=== PATIENT | female | born 2000 | race Caucasian/White ===

== ENCOUNTER 2022-12-21 19:49 | Outpatient (OUT) | payer OTHER, SELFPAY ==
[2022-12-26 16:08] LABS: Age Gdln ACOG Testing Note (.); IGP, rfx Aptima HPV ASCU Note (.)
== END 2022-12-21 19:50 | disposition home or self-care (01) ==
PROVIDERS: PCP Family Medicine; Visit Provider Obstetrics & Gynecology
DX: Z12.4 Encounter for screening for malignant neoplasm of cervix (principal); Z11.51 Encounter for screening for human papillomavirus (HPV)
CPT/HCPCS: G0145

== ENCOUNTER 2023-04-21 16:29 | Outpatient (OUT) | payer OTHER, SELFPAY ==
[2023-04-21 16:48] LABS: Basophils Absolute Auto 0.1 10^3/uL (0.0-0.1); Basophils Percent Auto 0.8 % (0.2-2.0); Eosinophils Percent Auto 0.7 % (0.9-7.0); Hematocrit 41.6 % (36.0-48.0); Hemoglobin 14.7 g/dL (12.0-16.0); Immature Granulocytes Abs Auto 0.01 10^3/uL (0.00-0.03); Immature Granulocytes Pct Auto 0.2 % (0.0-0.5); Lymphocytes Absolute Auto 2.1 10^3/uL (1.2-3.8); Lymphocytes Percent Auto 35.3 % (20.5-60.0); Mean Corpuscular HGB Conc 35.3 g/dL (29.9-35.2); Mean Corpuscular Hemoglobin 30.8 pg (26.7-34.0); Mean Corpuscular Volume 87.2 fL (81.0-99.0); Mean Platelet Volume 9.9 fL (9.5-13.5); Monocytes Absolute Auto 0.4 10^3/uL (0.3-0.8); Monocytes Percent Auto 6.3 % (1.7-12.0); Neutrophils Absolute Auto 3.5 10^3/uL (1.4-6.5); Neutrophils Percent Auto 56.7 % (43.0-75.0); Platelet Count 278 10^3/uL (150-450); Red Blood Count 4.77 10^6/uL (4.20-5.40); Red Cell Distribution Width 11.1 % (11.0-15.0); White Blood Count 6.1 10^3/uL (4.0-11.0)
[2023-04-21 17:12] LABS: Anion Gap 11.4; BUN Creatinine Ratio 15.3; Calcium 9.6 mg/dL (8.5-10.1); Carbon Dioxide 29.5 mmol/L (21.0-32.0); Chloride 102 mmol/L (98-107); Estimated GFR (African America >60 (>=60); Estimated GFR (Non-African Ame >60 (>=60); Glucose 114 mg/dL (74-106); Potassium 3.9 mmol/L (3.5-5.1); Sodium 139 mmol/L (136-145); Thyroid Stimulating Hormone 0.583 uIU/mL (0.358-3.740)
== END 2023-04-21 16:30 | disposition home or self-care (01) ==
LOC: LAB 16:30
PROVIDERS: PCP Family Medicine; Visit Provider Family Medicine
DX: R63.4 Abnormal weight loss (principal); R10.32 Left lower quadrant pain
CPT/HCPCS: 36415; 80048; 84443; 85025

== ENCOUNTER 2023-05-04 09:02 | Outpatient (OUT) | payer OTHER, SELFPAY ==
--- NOTE | 2023-05-04 09:11 | US_ITS ---
The [address] [address] Patient Name: ROXANNE GONZALES MRN: [id number] date: 2000 Sex: F Assigned Patient Location: [place] Current Patient Location: [place] Accession/Order Number: [id number] Exam Date: 05/04/2023 09:15 Report Date: 05/04/2023 11:06 At the request of: DEMETRIA ALARCON Procedure: US abdomen limited EXAM: US abdomen limited HISTORY: Left Lower Quadrant Pain R10.32 COMPARISON: None. TECHNIQUE: Transverse and longitudinal images of the left lower quadrant FINDINGS: There is no mass, cyst, nor architectural distortion. The left ovary is visualized measuring 24 x 26 x 21 mm and is sonographically unremarkable US/US abdomen limited IMPRESSION: No sonographic abnormality identified the left lower quadrant. CT could investigate persistent symptoms Electronically authenticated by: GONZÁLEZ REAVES Date: 05/04/2023 11:06
== END 2023-05-04 09:03 | disposition home or self-care (01) ==
LOC: US 09:02
PROVIDERS: PCP Family Medicine; Visit Provider Family Medicine
DX: R10.32 Left lower quadrant pain (principal)
CPT/HCPCS: 76705

== ENCOUNTER 2024-01-10 19:22 | Outpatient (REF) | payer OTHER, SELFPAY ==
--- OUTSIDE RECORDS SUMMARY | 2024-01-10 19:27 | XMS_ITS ---
Patient Summarization (C-CDA 2.1 CCD) Created on: January 10, 2024 Cornell Thomas : 2000 Sex: Female Author Organization Sample organization Care Team Providers Care [employer] Name Role Phone SKYE REARDON Unavailable Unavailable SKYE REARDON Unavailable Unavailable MD Raquel Alarcon Primary Care Provider DO Piter Bowers Emergency Provider Raquel Alarcon Primary Care Unavailable Piter Bowers Attending Unavailable Piter Bowers Admitting Unavailable ADDY ., DR VOGT Attending Unavailable ADDY ., DR VOGT Admitting Unavailable ADDY ., DR VOGT Consulting Unavailable AGNES, DR RAQUEL Tobin Primary Care Unavailable ADDY ., DR VOGT Admitting Unavailable ADDY ., DR VOGT Attending Unavailable ADDY ., DR VOGT Consulting Unavailable ADDY ., DR VOGT Consulting Unavailable ADDY ., DR VOGT Attending Unavailable ADDY ., DR VOGT Admitting Unavailable ADDY ., DR VOGT Attending Unavailable ALARCON, DR RAQUEL Tobin Primary Care Unavailable ADDY ., DR VOGT Admitting Unavailable Bri Edwards Consulting Unavailable ADDY ., DR VOGT Consulting Unavailable ADDY ., DR VOGT Attending Unavailable ADDY ., DR VOGT Admitting Unavailable ALARCON, DR RAQUEL Tobin Primary Care Unavailable ADDY ., DR VOGT Consulting Unavailable ALARCON, DR RAQUEL Tobin Primary Care Unavailable DIAB ., SALAZAR Admitting Unavailable DIAB ., SALAZAR Attending Unavailable HAY ., DR DURÁN Consulting Unavailable KARASIK ., DR HARPER Admitting Unavailjono e KARALBERTK ., DR HARPER Consulting Unavailjono e AGNES, DR RAQUEL Tobin Primary Care Unavailable KARASIK ., DR HARPER Attending Unavailabl e AYDEE, MURTAZA Consulting Unavailable MURTAZA BAJWA Attending Unavailable AGNES, DR RAQUEL Tobin Primary Care Unavailable MURTAZA BAJWA Admitting Unavailable ADDY ., DR VOGT Admitting Unavailable KARASIK ., DR HARPER Consulting Unavailabl e AGNES, DR RAQUEL Tobin Primary Care Unavailable ADDY ., DR VOGT Attending Unavailable ADDY ., DR VOGT Consulting Unavailable ADDY ., DR VOGT Procedure Practitioner Unavail able GHAZAL MCLEAN Consulting Unavailable VALERY RICO Consulting Unavailable ADDY ., DR VOGT Consulting Unavailable ADDY ., DR VOGT Admitting Unavailable ADDY ., DR VOGT Attending Unavailable MARCIN, DR JENNIFER Atkins Consulting Unavailable ADDY ., DR VOGT Consulting Unavailable ADDY ., DR VOGT Attending Unavailable ADDY ., DR VOGT Admitting Unavailable ADDY ., DR VOGT Attending Unavailable ADDY ., DR VOGT Admitting Unavailable ADDY ., DR VOGT Consulting Unavailable Raquel Alarcon Unavailable Allergies Allergy Classification Reported Allergen(s) Allergy Type Date of Onset Reaction(s) Facility (1 source) Penicillin Drug Allergy 05-31-2022 [facility] Encounters Encounter Date Encounter Type Care Provider Facility Start: 05-06-2023 End: 05-06-2023 ambulatory Raquel Alarcon Other [facility] Other Start: 05-06-2023 Telephone encounter Raquel Alarcon [facility] Start: 04-25-2023 End: 04-25-2023 ambulatory Raquel Alarcon Other [facility] Other Start: 04-25-2023 Telephone encounter Raquel Alarcon [facility] Start: 04-21-2023 End: 04-21-2023 ambulatory Raquel Alarcon Other [facility] Other Start: 04-21-2023 Office outpatient ne w 30 minutes Raquel Alarcon [facility] Start: 07-12-2022 End: 07-12-2022 Emergency department patient visit Raquel Alarcon Facility:[facility] Start: 07-11-2022 End: 07-12-2022 Emergency department patient visit MD Raquel Alarcon Work Phone: [facility] Work Phone: Start: 07-10-2022 End: 07-10-[address] RAQUEL ALARCON Facility:[facility] Start: 05-30-2022 End: 06-02-2022 Evaluation and management of inpatient DR SIN STEPHEN . Facility:[facility] Start: 05-22-2022 End: 05-22-2022 ambulatory MURTAZAJORDYN BAJWA Facility:[facility] Start: 05-10-2022 End: 05-10-[address] SIN STEPHEN . Facility:[facility] Start: 03-26-2022 End: 03-27-[address] SIN STEPHEN . Facility:[facility] Start: 02-23-2022 End: 02-24-[address] RAQUEL ALARCON Facility:[facility] Start: 02-01-2022 End: 02-01-[address] MEREDITH LERMA . Facility:[facility] Start: 01-19-2022 End: 01-20-[address] SIN STEPHEN . Facility:[facility] Start: 12-14-2021 End: 12-14-[address] SIN STEPHEN . Facility:[facility] Start: 11-18-2021 End: 11-19-[address] SIN STEPHEN . Facility:[facility] Start: 10-23-2021 End: 10-24-[address] SIN STEPHEN . Facility:[facility] Start: 12-15-2017 Patient encounter [facility] Immunizations Immunization Date Immunization Notes Care Provider Fa cility 06-09-2021 COVID-19 Vaccine Moderna - Documentation Purposes Only Raquel Alarcon Other [facility] Other Medications Current Medications Medication Drug Class(es) Dates Sig (Normalized) Sig (Original) sulfamethoxazole 800 mg / trimethoprim 160 mg oral tablet (1 source) Dihydrofolate Reductase Inhibitor Antibacterial, Sulfonamide Antimicrobial Start: 07-12-2022 take 1 tablet by mouth twice daily Sulfamethoxazol e-Trimethoprim (Bactrim Ds) 800-160 mg tablet Active 1 TAB PO Twice daily July 12, 2022 12:00am Ventolin HFA 108 (90 Base)MCG/ACT (3 sources) Start: 02-10-2021 Ventolin HFA 108 (90 Base)MCG/ACT Ventolin HFA 108 (90 Base)MCG/ACT, 2 puffs Puff every four hours, as needed # 1, 02/10/2021, Ref. x3. Active Inhalation every four hours, as needed for 0 Feb, Active Payers Date Payer Category Payer Self-pay 2000 Unknown [id number] 2.16.84 [id number] 2000 Unknown [id number] 2.16.84 [id number] 2000 Unknown [id number] 2.16.84 [id number] 2000 Unknown [id number] 2.16.84 [id number] 2000 Unknown [id number] 2.16.84 [id number] 2000 Unknown [id number] 2.16.84 [id number] 2000 Unknown [id number] 2.16.84 [id number] 2000 Unknown [id number] 2.16.84 [id number] 2000 Unknown [id number] 2.16.84 [id number] 2000 Unknown [id number] 2.16.84 [id number] 2000 Unknown [id number] 2.16.84 [id number] 1959 Medicaid [id number] 1959 Self-pay [id number] 1959 Unknown [id number] 1a [id number] 1959 Unknown [id number] Unknown [id number] 2.16.8 [id number] Unknown [id number] 2.16.84 [id number] Plan of Treatment Date Care Activity Detail Author Start: 07-12-2022 Superficial Wound Culture Superficial Wound Culture [facility] Bacteria identified in Unspecified specimen by Aerobe culture [facility] Patient Education Wound Dehiscence [facility] Work Phone: Patient referral [facility] Work Phone: Problems Active Problems Problem Classification Problem Date Documented Da te Episodic/Chronic Abdominal pain (1 source) Left lower quadrant pain Episodic Asthma (4 sources) Unspecified asthma, uncomplicated; Translations: [Exercise-induced asthma] Onset: 06-10-2022 Chronic Complications of surgical procedures or medical care (1 source) Wound dehiscence; Translations: [Disruption of wound, unspecified, initial encounter] 07-12-2022 Episodic Early or threatened labor (4 sources) False labor at or after 37 completed weeks of gestation; Translations: [FALSE LABOR AT/AFTR 37 CMPL WK GEST] Onset: 05-22-2022 Episodic Malposition; malpresentation (1 source) Maternal care for breech presentation, not applicable or unspecified; Translations: [MATERNAL CARE BREECH PRES NA/UNS] Onset: 06-10-2022 Episodic Menstrual disorders (4 sources) Irregular menstruation, unspecified; Translations: [IRREGULAR MENSTRUATION UNSPECIFIED] Onset: 11-18-2021 Chronic Other complications of ; puerperium affecting management of mother (5 sources) Disruption of delivery wound; Translations: [Disruption of delivery wound] Onset: 07-10-2022 Episodic Other complications of ; puerperium affecting management of mother (1 source) Diseases of the respiratory system complicating childbirth; Translations: [DISEASES RESP SYS COMP CHILDBIRTH] Onset: 06-10-2022 Episodic Other complications of (2 sources) Diseases of the respiratory system complicating , third trimester; Translations: [DISEASES RESP SYS COMP PREG 3RD TRI] Onset: 05-30-2022 Episodic Other nutritional; endocrine; and metabolic disorders (1 source) Abnormal weight loss Episodic Other and delivery including normal (7 sources) Single live ; Translations: [Encounter for supervision of normal first , second trimester] Onset: 10-28-2021 Episodic Residual codes; unclassified (1 source) 39 weeks gestation of ; Translations: [39 WEEKS GESTATION OF ] Onset: 06-10-2022 Episodic Residual codes; unclassified (1 source) 38 weeks gestation of ; Translations: [38 WEEKS GESTATION OF ] Onset: 05-26-2022 Episodic Unclassified (1 source) CONTACT W/AND (SUSP) EXPOS COVID-19; Translations: [CONTACT W/AND (SUSP) EXPOS COVID-19] Onset: 06-10-2022 Past or Other Problems Problem Classification Problem Date Documented Date Episodic/Chronic Immunizations and screening for infectious disease (3 sources) Encounter for screening for human papillomavirus (HPV); Translations: [Encounter for screening for infections with a predominantly sexual mode of transmission] Onset: 11-20-2021 Episodic Mycoses (1 source) Candidiasis, unspecified; Translations: [CANDIDIASIS UNSPECIFIED] Onset: 02-02-2022 Episodic Other complications of (4 sources) Maternal care for excessive growth, third trimester, not applicable or unspecified; Translations: [MAT CARE EXCSS FTL GRTH 3RD TRI UNS] Onset: 03-26-2022 Episodic Other complications of (1 source) Other maternal infectious and parasitic diseases complicating , second trimester; Translations: [OT MAT INFECT DZ COMP PREG 2ND TRI] Onset: 02-02-2022 Episodic Other female genital disorders (4 sources) Other specified noninflammatory disorders of vagina; Translations: [OT SPEC NONINFLAMMATORY D/O VAGINA] Onset: 12-16-2021 Episodic Other screening for suspected conditions (not mental disorders or infectious disease) (17 sources) Encounter for screening for Streptococcus B; Translations: [Encounter for screening for diabetes mellitus] Onset: 11-20-2021 Episodic Residual codes; unclassified (1 source) 30 weeks gestation of ; Translations: [30 WEEKS GESTATION OF ] Onset: 03-31-2022 Episodic Residual codes; unclassified (1 source) 22 weeks gestation of ; Translations: [22 WEEKS GESTATION OF ] Onset: 02-02-2022 Episodic Residual codes; unclassified (1 source) 20 weeks gestation of ; Translations: [20 WEEKS GESTATION OF ] Onset: 01-20-2022 Episodic Procedures Date Procedure Procedure Detail Performing Clinician Start: 05-31-2022 Extraction of Produc ts of Conception, Low Cervical, Open Approach DR SIN STEPHEN . Start: 05-31-2022 Drainage of Amniotic Fluid, Therapeutic from Products of Conception, Via Natural or Artificial Opening DR SIN STEPHEN . Start: 05-30-2022 Introduction of Horm one into Female Reproductive, Via Natural or Artificial Opening DR SIN STEPHEN . Results Test Name Value Interpretation Reference Range Facility Superficial Wound Cultureon 07-12-2022 Superficial Wound Culture ORGANISM: Staphylococcus aureus (O:STAAUR) Quantity of Growth Light Growth Aerobic VÍCTOR Charge (PCMIC38) ---- SUSCEPTIBILITY --- ORGANISM: O:STAAUR ANTIBIOTIC INTERPRETATION VÍCTOR Azithromycin R >4 Ceftaroline S <0.5 Ciprofloxacin S <1 Clindamycin R <0.25 Daptomycin S <0.5 Levofloxacin S <1 Linezolid S 2 Oxacillin S 0.5 Penicillin PEDRO >2 Tetracycline S <4 Trimethoprim/Sulfamet hoxazole S <0.5 Vancomycin S 1 S = SUSCEPTIBLE I = INTERMEDIATE R = RESISTANT BLANK = DATA NOT AVAILABLE, OR DRUG NOT ADVISABLE OR TESTED R* = RESISTANCE DUE TO EXTENDED SPECTRUM BETA-LACTAMASES ESBL = EXTENDED SPECTRUM BETA-LACTAMASE TFG = THYMIDINE-DEPENDENT STRAIN PEDRO = BETA-LACTAMASE POSITIVE IB = INDUCIBLE BETA-LACTAMASE. APPEARS IN PLACE OF 'S' WITH SPECIES KNOWN TO POSSESS INDUCIBLE BETA-LACTAMASES. POTENTIALLY THEY MAY BECOME RESISTANT TO ALL B-LACTAM DRUGS. PERFORMED BY: [place] [address] PATHOLOGIST SOFTWARE BUILD ENGINEER DAVID PRETTY M.D. Normal [facility] Comment on above: Performed By: #### C USUP #### [address] CBC AUTO DIFFon 06-01-2022 BASO # 0.0 103/ul Normal 0.0-0.1 [facility] Comment on above: Performed By: #### U HIRO ROBLES #### [facility] [address] [place] [address] Dr. Melba Lorenzo Basophils/100 WBC (Bld) 0.3 % Normal 0.2-2.0 [facility] Comment on above: Performed By: #### U ACSADRIANA UMICRO #### [facility] [address] [place] [address] Dr. Melba Lorenzo EO # 0.0 103/ul Normal 0.0-0.7 [facility] Comment on above: Performed By: #### U ACSADRIANA UMICRO #### [facility] [address] [place] [address] Dr. Melba Lorenzo Eosinophils/100 WBC (Bld) 0.2 % Critically low 0.9-7.0 [facility] Comment on above: Performed By: #### U ACSADRIANA UMICRO #### [facility] [address] [place] [address] Dr. Melba Lorenzo Erythrocyte distribution width (RBC) [Ratio] 12.1 % Normal 11.0-15.0 [facility] Comment on above: Performed By: #### U TRAVIS ICRO #### [facility] [address] [place] [address] Dr. Melba Lorenzo Hematocrit (Bld) [Volume fraction] 28.0 % Critically low 36.0-48.0 [facility] Comment on above: Performed By: #### U TRAVIS UMICRO #### [facility] [address] [place] [address] Dr. Melba Lorenzo Hemoglobin (Bld) [Mass/Vol] 9.8 g/dL Critically low 12.0-16.0 [facility] Comment on above: Performed By: #### U ACSADRIANA UMICRO #### [facility] [address] [place] [address] Dr. Melba Lorenzo IG # 0.07 10e3/ul Critically high 0.00-0.03 [facility] Comment on above: Performed By: #### U ACSADRIANA UMICRO #### [facility] [address] [place] [address] Dr. Melba Lorenzo IG % 0.6 % Critically high 0.0-0.5 [facility] Comment on above: Performed By: #### U TRAVIS ICRO #### [facility] [address] [place] [address] Dr. Melba Lorenzo LYMPH # 2.0 103/ul Normal 1.2-3.8 [facility] Comment on above: Performed By: #### U TRAVIS UMICRO #### [facility] [address] [place] [address] Dr. Melba Lorenzo Lymphocytes/100 WBC (Bld) 16.6 % Critically low 20.5-60.0 [facility] Comment on above: Performed By: #### U TRAVIS ICRO #### [facility] [address] [place] [address] Dr. Melba Lorenzo MANUAL DIFF REQ NO Normal [facility] Comment on above: Performed By: #### U TRAVIS ICRO #### [facility] [address] [place] [address] Dr. Melba Lorenzo MCH (RBC) [Entitic mass] 31.0 pg Normal 26.7-34.0 [facility] Comment on above: Performed By: #### U TRAVIS ICRO #### [facility] [address] [place] [address] Dr. Melba Lorenzo MCHC (RBC) [Mass/Vol] 35.0 g/dL Normal 29.9-35.2 [facility] Comment on above: Performed By: #### U TRAVIS ICRO #### [facility] [address] [place] [address] Dr. Melba Lorenzo MCV (RBC) [Entitic vol] 88.6 fL Normal 81.0-99.0 [facility] Comment on above: Performed By: #### U ACSADRIANA UMICRO #### [facility] [address] [place] [address] Dr. Melba Lorenzo MONO # 1.1 103/ul Critically high 0.3-0.8 [facility] Comment on above: Performed By: #### U ACSADRIANA UMICRO #### [facility] [address] [place] [address] Dr. Melba Lorenzo Monocytes/100 WBC (Bld) 8.8 % Normal 1.7-12.0 [facility] Comment on above: Performed By: #### U ACSADRIANA UMICRO #### [facility] [address] [place] [address] Dr. Melba Lorenzo NEUT # 8.8 103/ul Critically high 1.4-6.5 [facility] Comment on above: Performed By: #### U ACSADRIANA UMICRO #### [facility] [address] [place] [address] Dr. Melba Lorenzo Neutrophils/100 WBC (Bld) 73.5 % Normal 43.0-75.0 [facility] Comment on above: Performed By: #### U ACSADRIANA UMICRO #### [facility] [address] [place] [address] Dr. Melba Lorenzo Platelet mean volume (Bld) [Entitic vol] 9.8 fL Normal 9.5-13.5 [facility] Comment on above: Performed By: #### U TRAVIS ICRO #### [facility] [address] [place] [address] Dr. Melba Lorenzo PLT 194 103/ul Normal 150-450 [facility] Comment on above: Performed By: #### U ACSADRIANA UMICRO #### [facility] [address] [place] [address] Dr. Melba Lorenzo RBC 3.16 106/ul Critically low 4.20-5.40 [facility] Comment on above: Performed By: #### U ACSADRIANA UMICRO #### [facility] [address] [place] [address] Dr. Melba Lorenzo WBC 12.0 103/ul Critically high 4.0-11.0 [facility] Comment on above: Performed By: #### U ACSADRIANA UMICRO #### [facility] [address] [place] [address] Dr. Melba Lorenzo CBC AUTO DIFFon 05-30-2022 BASO # 0.0 103/ul Normal 0.0-0.1 [facility] Comment on above: Performed By: #### U NIRMAL ROBLESICRO #### [facility] [address] [place] [address] Dr. Melba Lorenzo Basophils/100 WBC (Bld) 0.3 % Normal 0.2-2.0 [facility] Comment on above: Performed By: #### U ACSADRIANA UMICRO #### [facility] [address] [place] [address] Dr. Melba Lorenzo EO # 0.0 103/ul Normal 0.0-0.7 [facility] Comment on above: Performed By: #### U TRAVIS ICRO #### [facility] [address] [place] [address] Dr. Melba Lorenzo Eosinophils/100 WBC (Bld) 0.3 % Critically low 0.9-7.0 [facility] Comment on above: Performed By: #### U TRAVIS ICRO #### [facility] [address] [place] [address] Dr. Melba Lorenzo Erythrocyte distribution width (RBC) [Ratio] 11.9 % Normal 11.0-15.0 [facility] Comment on above: Performed By: #### U TRAVIS ICRO #### [facility] [address] [place] [address] Dr. Melba Lorenzo Hematocrit (Bld) [Volume fraction] 38.1 % Normal 36.0-48.0 [facility] Comment on above: Performed By: #### U ACSADRIANA UMICRO #### [facility] [address] [place] [address] Dr. Melba Lorenzo Hemoglobin (Bld) [Mass/Vol] 13.4 g/dL Normal 12.0-16.0 [facility] Comment on above: Performed By: #### U ACSADRIANA UMICRO #### [facility] [address] [place] [address] Dr. Melba Lorenzo IG # 0.05 10e3/ul Critically high 0.00-0.03 [facility] Comment on above: Performed By: #### U ACSADRIANA UMICRO #### [facility] [address] [address] [address] Melba Lorenzo IG % 0.5 % Normal 0.0-0.5 [facility] Comment on above: Performed By: #### U ACSADRIANA UMICRO #### [facility] [address] [place] [address] Dr. Melba Lorenzo LYMPH # 2.0 103/ul Normal 1.2-3.8 [facility] Comment on above: Performed By: #### U ACSADRIANA UMICRO #### [facility] [address] [place] [address] Dr. Melba Lorenzo Lymphocytes/100 WBC (Bld) 20.1 % Critically low 20.5-60.0 [facility] Comment on above: Performed By: #### U TRAVIS UMICRO #### [facility] [address] [place] [address] Dr. Melba Lorenzo MANUAL DIFF REQ NO Normal [facility] Comment on above: Performed By: #### U TRAVIS UMICRO #### [facility] [address] [place] [address] Dr. Melba Lorenzo MCH (RBC) [Entitic mass] 30.7 pg Normal 26.7-34.0 [facility] Comment on above: Performed By: #### U TRAVIS UMICRO #### [facility] [address] [place] [address] Dr. Melba Lorenzo MCHC (RBC) [Mass/Vol] 35.2 g/dL Normal 29.9-35.2 [facility] Comment on above: Performed By: #### U ACSADRIANA UMICRO #### [facility] [address] [place] [address] Dr. Melba Lorenzo MCV (RBC) [Entitic vol] 87.4 fL Normal 81.0-99.0 [facility] Comment on above: Performed By: #### U ACSADRIANA UMICRO #### [facility] [address] [place] [address] Dr. Melba Lorenzo MONO # 0.8 103/ul Normal 0.3-0.8 [facility] Comment on above: Performed By: #### U NIRMAL ROBLESICRO #### [facility] [address] [address] [address] Melba Lorenzo Monocytes/100 WBC (Bld) 7.8 % Normal 1.7-12.0 [facility] Comment on above: Performed By: #### U NIRMAL ROBLESICRO #### [facility] [address] [place] [address] Dr. Melba Lorenzo NEUT # 6.9 103/ul Critically high 1.4-6.5 [facility] Comment on above: Performed By: #### U TRAVIS UMICRO #### [facility] [address] [place] [address] Dr. Melba Lorenzo Neutrophils/100 WBC (Bld) 71.0 % Normal 43.0-75.0 [facility] Comment on above: Performed By: #### Dheeraj ROBLES ICRO #### [facility] [address] [place] [address] Dr. Melba Lorenzo Platelet mean volume (Bld) [Entitic vol] 9.9 fL Normal 9.5-13.5 [facility] Comment on above: Performed By: #### Dheeraj ROBLES ICRO #### [facility] [address] [place] [address] Dr. Melba Lorenzo PLT 269 103/ul Normal 150-450 [facility] Comment on above: Performed By: #### U TRAVIS UMICRO #### [facility] [address] [place] [address] Dr. Melba Lorenzo RBC 4.36 106/ul Normal 4.20-5.40 [facility] Comment on above: Performed By: #### U TRAVIS UMICRO #### [facility] [address] [place] [address] Dr. Melba Lorenzo WBC 9.7 103/ul Normal 4.0-11.0 [facility] Comment on above: Performed By: #### U CELI ROBLESRO #### [facility] [address] [address] [address] Melba Lorenzo Covid-19 PCR ([facility])on 05-07 SARS-CoV-2 (COVID-19) RNA VEENA+probe Ql (Unsp spec) Not detected Normal NOT DETECTED [facility] Comment on above: Result Comment: When diagnostic testing is negative, the possibility of a false negative should be considered in the context of a patient's recent exposures and the presence of clinical signs and symptoms consistent with SARS-CoV-2. This test is not yet approved or cleared by the [place] FDA. When there are no FDA-approved or cleared tests available, and other criteria are met, FDA can make tests available under an emergency access mechanism called an Emergency Use Authorization (EUA). The EUA for this test is supported by the [place] of Health and Human Service's declaration that circumstances exist to justify the emergency use of in vitro diagnostics for the detection and/or diagnosis of the virus that causes COVID-19. This EUA will remain in effect for the duration of the COVID-19 declaration justifying emergency of IVDs, unless it is terminated or revoked by the FDA (after which the test may no longer be used). Performed By: #### U HIRO ROBLES #### [facility] Laboratory [address] [place] [address] Dr. Melba Lorenzo DRUG SCREEN RAPID (URINE)on 05-30-2022 AMP Negative Normal NEGATIVE [facility] Comment on above: Performed By: #### N BOX #### [facility] [address] [address] [address] Melba Lorenzo BAR Negative Normal NEGATIVE [facility] Comment on above: Performed By: #### N BOX #### [facility] [address] [address] [address] Melba Lorenzo BUP Negative Normal NEGATIVE [facility] Comment on above: Performed By: #### N BOX #### [facility] [address] [place] [address] Dr. Melba Lorenzo BZO Negative Normal NEGATIVE [facility] Comment on above: Performed By: #### N BOX #### [facility] [address] [place] [address] Dr. Melba Lorenzo PRANEETH Negative Normal NEGATIVE [facility] Comment on above: Performed By: #### N BOX #### [facility] [address] [place] [address] Dr. Melba Lorenzo CUT-OFFS SEE BELOW Normal [facility] Comment on above: Result Comment: AMP (Amphetamine): 500ng/mL, BAR (Barbituates): 200 ng/mL, BZO (Benzodiazepines): 150 ng/mL, BUP (Buprenorphine): 10 ng/mL, PRANEETH (Cocaine): 150 ng/mL, mAMP (Methamphetamine): 500 ng/mL, MTD (Methadone): 200 ng/mL, OPI (Opiates): 100 ng/mL, OXY (Oxycodone): 100 ng/mL, PCP (Phencyclidine): 25 ng/mL, PPX (Propoxyphene): 300 ng/mL, THC (Cannabinoids): 50 ng/mL, TCA (Trycyclic Antidepressants): 300 ng/mL Performed By: #### N BOX #### [facility] [address] [place] [address] Dr. Melba Lorenzo DRUG CUT HEADER DRUG CLASS TEST SYSTEM CUT-OFF CONCENTRATIONS ARE FOLLOWS: Normal [facility] Comment on above: Performed By: #### N BOX #### [facility] [address] [place] [address] Dr. Melba Lorenzo mAMP Negative Normal NEGATIVE [facility] Comment on above: Performed By: #### N BOX #### [facility] [address] [place] [address] Dr. Melba Lorenzo MTD Negative Normal NEGATIVE [facility] Comment on above: Performed By: #### N BOX #### [facility] [address] [place] [address] Dr. Melba Lorenzo OPI Negative Normal NEGATIVE [facility] Comment on above: Performed By: #### N BOX #### [facility] [address] [place] [address] Dr. Melba Lorenzo OXY Negative Normal NEGATIVE [facility] Comment on above: Performed By: #### N BOX #### [facility] [address] [place], [place] [id number] Dr. Melba Lorenzo PCP Negative Normal NEGATIVE [facility] Comment on above: Performed By: #### N BOX #### [facility] [address] [place] [address] Dr. Melba Lorenzo PPX Negative Normal NEGATIVE [facility] Comment on above: Performed By: #### N BOX #### [facility] [address] [place] [address] Dr. Melba Lorenzo TCA Negative Normal NEGATIVE [facility] Comment on above: Performed By: #### N BOX #### [facility] [address] [place] [address] Dr. Melba Lorenzo THC Negative Normal NEGATIVE [facility] Comment on above: Performed By: #### N BOX #### [facility] [address] [place] [address] Dr. Melba Lorenzo TYPE AND SCREENon 05-30-2022 TYPE AND SCREEN Negative Normal [facility] Comment on above: Performed By: #### U ACSADRIANA ICRO #### [facility] [address] [place] [address] Dr. Melba Lorenzo UA (CLEAN/CATCH) VALVE PIPE IRRIGATOR/MICRO I F IND.on 05-22-2022 Bilirubin Ql (U) Negative Normal NEGATIVE [facility] Comment on above: Performed By: #### U ACSADRIANA UMICRO #### [facility] [address] [place] [address] Dr. Melba Lorenzo Clarity (U) SL CLOUDY Abnormal CLEAR [facility] Comment on above: Performed By: #### U ACSADRIANA ICRO #### [facility] [address] [place] [address] Dr. Melba Lorenzo Color (U) LT. YELLOW Normal YELLOW [facility] Comment on above: Performed By: #### U ACSADRIANA UMICRO #### [facility] [address] [place] [address] Dr. Melba Lorenzo Glucose Ql (U) Negative Normal NEGATIVE [facility] Comment on above: Performed By: #### U ACSADRIANA UMICRO #### [facility] [address] [place], [place] [id number] Dr. Melba Lorenzo Hemoglobin Ql (U) Negative Normal NEGATIVE [facility] Comment on above: Performed By: #### U ACSIND, UMICRO #### [facility] [address] [address] [address] Melba Lorenzo Ketones Ql (U) Negative Normal NEGATIVE [facility] Comment on above: Performed By: #### U ACSIND, UMICRO #### [facility] [address] [address] [address] Melba Lorenzo LEUKOCYTES LARGE Abnormal NEGATIVE [facility] Comment on above: Performed By: #### U ACSIND, UMICRO #### [facility] [address] [address] [address] Melba Lorenzo Nitrite Ql (U) Negative Normal NEGATIVE [facility] Comment on above: Performed By: #### U ACSIND, UMICRO #### [facility] [address] [address] [address] Melba Lorenzo pH (U) 6.5 [pH] Normal 5-9 [facility] Comment on above: Performed By: #### U ACSIND, ICRO #### [facility] [address] [address] [address] Melba Lorenzo SPEC GRAVITY 1.010 Normal 1.005-<=1.025 [facility] Comment on above: Performed By: #### U ACSIND, UMICRO #### [facility] [address] [address] [address] Melba Lorenzo UA PROTEIN Negative Normal NEGATIVE/ TRACE [facility] Comment on above: Performed By: #### U ACSIND, UMICRO #### [facility] [address] [address] [address] Melba Lorenzo UR MICRO IND INDICATED Normal [facility] Comment on above: Performed By: #### U ACSIND, UMICRO #### [facility] [address] [place] [address] Dr. Melba Lorenzo Urobilinogen Qn (U) 0.2 {Maria G'U}/dL Normal 0.2 - 1. 0 [facility] Comment on above: Performed By: #### U ACSIND, UMICRO #### [facility] [address] [address] [address] Melba Lorenzo URINE MICROSCOPIC ONLYon BACTERIA NONE SEEN Normal NONE SEEN [facility] Comment on above: Performed By: #### U ACSIND, UMICRO #### [facility] [address] [address] [address] Melba Lorenzo Bacteria identified Cx Nom (U) NOT INDICATED Normal [facility] Comment on above: Performed By: #### U ACSIND, UMICRO #### [facility] [address] [address] [address] Melba Lorenzo CAST NONE SEEN Normal NONE SEEN [facility] Comment on above: Performed By: #### U ACSIND, UMICRO #### [facility] [address] [place] [address] Dr. Melba Lorenzo Crystals LM Nom (Urine sed) NONE SEEN Normal NONE SEEN [facility] Comment on above: Performed By: #### U ACSIND, UMICRO #### [facility] [address] [place] [address] Dr. Melba Lorenzo Epithelial cells LM Ql (Urine sed) MODERATE Abnormal NONE SEEN /RARE [facility] Comment on above: Performed By: #### U ACSIND, UMICRO #### [facility] [address] [place] [address] Dr. Melba Lorenzo MUCOUS NONE SEEN Normal NONE SEEN [facility] Comment on above: Performed By: #### U ACSIND, UMICRO #### [facility] [address] [address] [address] Melba Lorenzo RBC NONE SEEN Abnormal 0-2 [facility] Comment on above: Performed By: #### U ACSIND, UMICRO #### [facility] [address] [place] [address] Dr. Melba Lorenzo WBC 2-5 Abnormal NONE SEEN [facility] Comment on above: Performed By: #### U ACSIND, UMICRO #### [facility] [address] [place] [address] Dr. Melba Lorenzo GROUP B STREP CULTUREon S. agalactiae Ag Ql (Unsp spec) Culture Observations: NEGATIVE FOR GROUP B STREPTOCOCCUS. Normal [facility] Comment on above: Performed By: #### U HIRO ROBLES #### [facility] [address] [place] [address] Dr. Melba Lorenzo US PREG GROWTHon 03-28-2022 US PREG GROWTH EXAMINATION: US PREG GROWTH HISTORY: Excessive growth affecting management of mother COMPARISON: No relevant comparison available. FINDINGS: Heart Rate: 145.2 bpm Amniotic Fluid Volume: 14.1 cm Number: 1.0 Position: Breech presentation, longitudinal lie Maximum Vertical Pocket: 4.0 cm cm 2.7 cm cm 3.7 cm cm 3.7 cm cm BIOMETRY: BPD: 6.9 cm cm; 27 weeks 6 days; <3% HC: 27.5 cmcm; 30 weeks 1 days 18% AC: 26.1 cm cm; 30 weeks 2 days 53% FL: 5.5 cm cm; 29 weeks 0 days; 12.5 % % EFW: 1433.1 grams, 3 lbs. 3 oz., 26% FL/AC: 21.0 FL/BPD: 79.2 HC/AC: 1.1 GESTATIONAL AGE: Age by EDC: 30 weeks 0 days KIANNA by EDC: 06/04/2022 Age by US: 29 weeks 2 days KIANNA by US: 06/09/2022 IMPRESSION: BPD less than the 3rd percentile Electronically authenticated by: BRI EDWARDS Date: 2022-03-28 16:11 Normal [facility] GLUCOSE - 1HRon 02-23-2022 Glucose [Mass/Vol] 115 mg/dL Critically high 74-106 [facility] Comment on above: Performed By: #### U HIRO ROBLES #### [facility] [address] [place] [address] Dr. Melba Lorenzo HEMOGRAM AND PLATELon 2021 Hematocrit (Bld) [Volume fraction] 33.6 % Critically low 36.0-48.0 [facility] Comment on above: Performed By: #### N BOX #### [facility] [address] [place] [address] Dr. Melba Lorenzo Hemoglobin (Bld) [Mass/Vol] 11.6 g/dL Critically low 12.0-16.0 [facility] Comment on above: Performed By: #### N BOX #### [facility] [address] [address] [address] Melba Lorenzo MCH (RBC) [Entitic mass] 31.6 pg Normal 26.7-34.0 [facility] Comment on above: Performed By: #### N BOX #### [facility] [address] [address] [address] Melba Lorenzo MCHC (RBC) [Mass/Vol] 34.5 g/dL Normal 29.9-35.2 [facility] Comment on above: Performed By: #### N BOX #### [facility] [address] [place] [address] Dr. Melba Lorenzo MCV (RBC) [Entitic vol] 91.6 fL Normal 81.0-99.0 [facility] Comment on above: Performed By: #### N BOX #### [facility] [address] [place] [address] Dr. Melba Lorenzo PLT 236 103/ul Normal 150-450 [facility] Comment on above: Performed By: #### N BOX #### [facility] [address] [place] [address] Dr. Melba Lorenzo RBC 3.67 106/ul Critically low 4.20-5.40 [facility] Comment on above: Performed By: #### N BOX #### [facility] [address] [place] [address] Dr. Melba Lorenzo WBC 7.4 103/ul Normal 4.0-11.0 [facility] Comment on above: Performed By: #### N BOX #### [facility] [address] [place] [address] Dr. Melba Lorenzo CULTURE URINEon 02-01-2022 CULTURE URINE Culture Observations : LIGHT GROWTH OF MIXED GENITAL [place]. NO POTENTIAL PATHOGENS SEEN. Normal [facility] Comment on above: Performed By: #### U RCX #### [facility] [address] [address] [address] Melba Lorenzo UA (CLEAN/CATCH) VALVE PIPE IRRIGATOR/MICRO I F IND.on 02-01-2022 Bilirubin Ql (U) Negative Normal NEGATIVE [facility] Comment on above: Performed By: #### U MICRO, UACSIND #### [facility] [address] [place] [address] Dr. Melba Lorenzo Clarity (U) CLEAR Normal CLEAR [facility] Comment on above: Performed By: #### U MICRO, UACSIND #### [facility] [address] [place] [address] Dr. Melba Lorenzo Color (U) YELLOW Normal YELLOW [facility] Comment on above: Performed By: #### U MICRO, UACSIND #### [facility] [address] [place] [address] Dr. Melba Lorenzo Glucose Ql (U) Negative Normal NEGATIVE [facility] Comment on above: Performed By: #### U MICRO, UACSIND #### [facility] [address] [place] [address] Dr. Melba Lorenzo Hemoglobin Ql (U) Negative Normal NEGATIVE [facility] Comment on above: Performed By: #### U MICRO, UACSIND #### [facility] [address] [place] [address] Dr. Melba Lorenzo Ketones Ql (U) Negative Normal NEGATIVE [facility] Comment on above: Performed By: #### U MICRO, UACSIND #### [facility] [address] [place] [address] Dr. Melba Lorenzo LEUKOCYTES LARGE Abnormal NEGATIVE [facility] Comment on above: Performed By: #### U MICRO, UACSIND #### [facility] [address] [place] [address] Dr. Melba Lorenzo Nitrite Ql (U) Negative Normal NEGATIVE [facility] Comment on above: Performed By: #### U MICRO, UACSIND #### [facility] [address] [place] [address] Dr. Mebla Lorenzo pH (U) 6.0 [pH] Normal 5-9 [facility] Comment on above: Performed By: #### U MICRO, UACSIND #### [facility] [address] [address] [address] Melba Lorenzo SPEC GRAVITY 1.010 Normal 1.005-<=1.025 [facility] Comment on above: Performed By: #### U MICRO, UACSIND #### [facility] [address] [address] [address] Melba Lorenzo UA PROTEIN Negative Normal NEGATIVE/ TRACE [facility] Comment on above: Performed By: #### U MICRO, UACSIND #### [facility] [address] [address] [address] Melba Lorenzo UR MICRO IND INDICATED Normal [facility] Comment on above: Performed By: #### U MICRO, UACSIND #### [facility] [address] [place] [address] Dr. Melba Lorenzo Urobilinogen Qn (U) 0.2 {Maria G'U}/dL Normal 0.2 - 1. 0 [facility] Comment on above: Performed By: #### U MICRO, UACSIND #### [facility] [address] [place] [address] Dr. Melba Lorenzo URINE MICROSCOPIC ONLYon BACTERIA SMALL Abnormal NONE SEEN [facility] Comment on above: Performed By: #### U MICRO, UACSIND #### [facility] [address] [place] [address] Dr. Melba Lorenzo Bacteria identified Cx Nom (U) INDICATED Normal [facility] Comment on above: Performed By: #### U MICRO, UACSIND #### [facility] [address] [place] [address] Dr. Melba Lorenzo CAST NONE SEEN Normal NONE SEEN [facility] Comment on above: Performed By: #### U MICRO, UACSIND #### [facility] [address] [place] [address] Dr. Melba Lorenzo Crystals LM Nom (Urine sed) NONE SEEN Normal NONE SEEN [facility] Comment on above: Performed By: #### U MICRO, UACSIND #### [facility] [address] [place] [address] Dr. Melba Lorenzo Epithelial cells LM Ql (Urine sed) RARE Normal NONE SEEN /RARE [facility] Comment on above: Performed By: #### U MICRO, UACSIND #### [facility] [address] [address] [address] Melba Lorenzo MUCOUS NONE SEEN Normal NONE SEEN [facility] Comment on above: Performed By: #### U MICRO, UACSIND #### [facility] [address] [address] [address] Melba Lorenzo RBC 0-2 Normal 0-2 [facility] Comment on above: Performed By: #### U MICRO, UACSIND #### [facility] [address] [address] [address] Melba Lorenzo WBC 5-10 Abnormal NONE SEEN [facility] Comment on above: Performed By: #### U MICRO, UACSIND #### [facility] [address] [address] [address] Melba Lorenzo AFP MATERNAL FOR SPINA BIFID Aon 01-26-2022 AFP MoM 1.04 Normal [facility] Comment on above: Performed By: #### A FPMAT #### [facility] [address] [address] [address] Melba Lorenzo AFP Value 71.4 ng/mL Normal [facility] Comment on above: Performed By: #### A FPMAT #### [facility] [address] [address] [address] Melba Lorenzo AFP, Serum for Spina Bifida Report Normal [facility] Comment on above: Performed By: #### A FPMAT #### [facility] [address] [address] [address] Melba Lorenzo Comment Comment Normal [facility] Comment on above: Result Comment: Tyree Harmon, Ph.D., [facility] Director . References: Available Upon Request. . Multiples Of Median Cutoffs For AFP Elevations Torre 2.5 Black 2.8 IDD 2.0 Twins 4.5 Abbreviation Definitions IDD - Insulin Dep Diabetes OSBR - Open Spina Bifida Risk . For further inquiries contact [facility] at [phone]. . This test was developed and its performance characteristics determined by [facility]. It has not been cleared or approved by the Food and Drug Administration. Performed By: #### A FPMAT #### [facility] [address] [place] [address] Dr. Melba Downs Age Collection Date 20.6 weeks Normal [facility] Comment on above: Performed By: #### A FPMAT #### [facility] [address] [address] [address] Melba Lorenzo Gestat, Age Based on KIANNA Normal [facility] Comment on above: Result Comment: 05/08 Recalculations are not recommended when gestational dating by LMP and ultrasound are within 10 days. Performed By: #### A FPMAT #### [facility] [address] [place] [address] Dr. Melba Lorenzo Insulin Dep Diabetes No Normal [facility] Comment on above: Performed By: #### A FPMAT #### [facility] [address] [place] [address] Dr. Melba Lorenzo Interpretation Comment Normal [facility] Comment on above: Result Comment: Inte rpretation: Screen Negative . This result is screen negative for OSB. The AFP MoM calculated is based on the gestational age provided. MS-AFP can identify up to 80% of open neural tube defects. Closed neural tube defects and some open defects may not be detected by this test. This test does not screen for Down Syndrome or Trisomy 18. If screening for Down Syndrome or Trisomy 18 is desired, contact [facility] to discuss available options. The [employer] recommends amniocentesis be offered to women age 35 and older. Performed By: #### A FPMAT #### [facility] [address] [place] [address] Dr. Melba Lorenzo [age] Normal [facility] Comment on above: Performed By: #### A FPMAT #### [facility] [address] [place] [address] Dr. Melba Lorenzo Multiple Gestation No Normal [facility] Comment on above: Performed By: #### A FPMAT #### [facility] [address] [address] [address] Melba Lorenzo OSBR [place] 1 [place] [address] Normal [facility] Comment on above: Performed By: #### A FPMAT #### [facility] [address] [address] [address] Melba Lorenzo PDF . [facility] Comment on above: Performed By: #### A FPMAT #### [facility] [address] [address] [address] Melba Lorenzo Race [facility] Comment on above: Performed By: #### A FPMAT #### [facility] [address] [place] [address] Dr. Melba Lorenzo Test Results: Negative [facility] Comment on above: Performed By: #### A FPMAT #### [facility] [address] [place] [address] Dr. Mleba Lorenzo US PREG ANATOMY SINGLEon US PREG ANATOMY SINGLE EXAMINATION: US PREG ANATOMY SINGLE HISTORY: screening COMPARISON: Ultrasound transvaginal 10/23/2021 TECHNIQUE: Transabdominal sonographic examination was performed for obstetrical and evaluation. FINDINGS: Number: 1 Heart Rate: 148.0 bpm H.B. /min Amniotic Fluid Volume: Subjectively normal Placental Location: Posterior with lower margin 4.9 cm from os. Cervix Length: 4.9 cm, closed. ANATOMY: Normal Structures -cerebellum, choroid plexus, cisterna magna, lateral cerebral ventricles, orbits, midline falx, hard palate, four-chamber heart, RVOT, LVOT, stomach, kidneys, bladder, umbilical cord insertion into abdomen, three-vessel cord, cervical spine, thoracic spine, lumbar spine, sacral spine, right upper extremity, left upper extremity, right lower extremity, left lower extremity. SUBOPTIMALLY SEEN: None ABNORMALITIES: None BIOMETRY: BPD: 4.9 cm 20 weeks 6 days HC: 17.8 cm 20 weeks 2 days AC: 15.7 cm 20 weeks 6 days FL: 3.5 cm 21 weeks 0 days EFW:380.1 grams; 60% FL/AC: 22.2 FL/BPD: 70.7 HC/AC: 1.1 GESTATIONAL AGE: Age by EDC: 20 weeks 4 days KIANNA by EDC: 06/04/2022 Age by current US: 20 weeks 5 days KIANNA by current US: 06/03/2022 IMPRESSION: 1. Single live intrauterine with growth detailed above. Electronically authenticated by: JENNIFER BURCH Date: 2022-01-19 21:20 Normal [facility] CHLAMYDIA/GONOCOCCUS VEENA (SW AB/URINE/PAPon 12-17-2021 Chlamydia trachomatis, VEENA Negative Normal Negative [facility] Comment on above: Performed By: #### N BOX #### [facility] [address] [address] [address] Melba Lorenzo Neisseria gonorrhoeae, VEENA Negative Normal Negative [facility] Comment on above: Performed By: #### N BOX #### [facility] [address] [place] [address] Dr. Melba Lorenzo PAP ACOG PANEL 2: 21 to on 12-17-2021 . . Normal [facility] Comment on above: Performed By: #### U ACSIND, UMICRO #### [facility] [address] [address] [address] Melba Lorenzo Age Gdln ACOG Testing - Normal [facility] Comment on above: Performed By: #### U ACSIND, UMICRO #### [facility] [address] [place] [address] Dr. Melba Lorenzo DIAGNOSIS: Comment Normal [facility] Comment on above: Result Comment: NEGA TIVE FOR INTRAEPITHELIAL LESION OR MALIGNANCY. FUNGAL ORGANISMS MORPHOLOGICALLY CONSISTENT WITH SELENE SPECIES ARE PRESENT. Performed By: #### U ACSIND, UMICRO #### [facility] [address] [address] [address] Melba Lorenzo Methodology: Comment Normal [facility] Comment on above: Result Comment: This liquid based ThinPrep(R) pap test was screened with the use of an image guided system. Performed By: #### U ACSIND, UMICRO #### [facility] [address] [place] [address] Dr. Melba Lorenzo Note: Comment Normal [facility] Comment on above: Result Comment: The Pap smear is a screening test designed to aid in the detection of premalignant and malignant conditions of the uterine cervix. It is not a diagnostic procedure and should not be used as the sole means of detecting cervical cancer. Both false-positive and false-negative reports do occur. . Performed By: #### U ACSADRIANA, UMICRO #### [facility] [address] [address] [address] Melba Lorenzo Performed by: Comment Normal [facility] Comment on above: Result Comment: Kitty Potter [employer]ic (ASCP) Performed By: #### U ACSADRIANA UMICRO #### [facility] [address] [place] [address] Dr. Melba Lorenzo Reflex Criteria: Comment Normal [facility] Comment on above: Result Comment: The HPV DNA reflex criteria were not met with this specimen result therefore, no HPV testing was performed. . Performed By: #### U TRAVIS UMICRO #### [facility] [address] [place] [address] Dr. Melba Lorenzo Specimen adequacy: Comment Normal [facility] Comment on above: Result Comment: Sati sfactory for evaluation. No endocervical component is identified. Performed By: #### U TRAVIS UMICRO #### [facility] [address] [place] [address] Dr. Melba Lorenzo VAGINITIS/VAGINOSIS DNA PROB [place] 12-16-2021 Selene species Positive Abnormal Negative [facility] Comment on above: Performed By: #### U TRAVIS UMICRO #### [facility] [address] [place] [address] Dr. Melba Lorenzo Gardnerella vaginalis Positive Abnormal Negative [facility] Comment on above: Performed By: #### U TRAVIS UMICRO #### [facility] [address] [place] [address] Dr. Melba Lorenzo Trichomonas vaginalis Negative Normal Negative [facility] Comment on above: Performed By: #### U ACSADRIANA UMICRO #### [facility] [address] [address] [address] Melba Lorenzo HEP B SURFACE ANTIGEN SCREEN on 11-19-2021 HBsAg Screen Negative Normal Negative [facility] Comment on above: Performed By: #### U ACSCELI WRIGHTRO #### [facility] [address] [address] [address] Melba Lorenzo HEPATITIS C VIRUS AB W/ REFL EX QUANTon 11-19-2021 HCV AB <0.1 Normal 0.0-0.9 [facility] Comment on above: Performed By: #### U ACSADRIANA, UMICRO #### [facility] [address] [address] [address] Melba Lorenzo Interpretation: Comment Normal [facility] Comment on above: Result Comment: Nega tive Not infected with HCV, unless recent infection is suspected or other evidence exists to indicate HCV infection. Performed By: #### U ACSADRIANA, NIRMALICRO #### [facility] [address] [address] [address] Melba Lorenzo HIV 1 AND 2 WITH REFLEXon HIV Screen 4th Generation wRfx Non-Reactive Normal Non Reactive [facility] Comment on above: Result Comment: HIV Negative HIV-1/HIV-2 antibodies and HIV-1 p24 antigen were NOT detected. There is no laboratory evidence of HIV infection. Performed By: #### H IV12 #### [facility] [address] [address] [address] Melba Lorenzo RPR QUANTon 11-19-2021 Rapid Plasma Reagin, Quant Non-Reactive Normal NonRea<1:1 [facility] Comment on above: Result Comment: Plea se Note: This test does not meet current guidelines for screening and diagnosis of syphilis. This test is intended for following treatment response in patients being treated for syphilis infection. To screen for syphilis infection, a reflex cascade that includes both RPR and a treponema-specific assay should be utilized, such as Treponema pallidum (Syphilis) Screening [place] (072107) or Rapid Plasma Reagin (RPR) Test With Reflex to Quantitative RPR and Confirmatory Treponema pallidum Antibodies (087769). Performed By: #### U ACSIND, UMICRO #### [facility] [address] [place] [address] Dr. Melba Lorenzo RUBELLA AB IGGon 11-19-2021 Rubella Antibodies, IgG 3.84 index Normal Immune >0.99 [facility] Comment on above: Result Comment: Non- immune <0.90 Equivocal 0.90 - 0.99 Immune >0.99 Performed By: #### R UBIGG #### [facility] [address] [place] [address] Dr. Melba Lorenzo CBC AUTO DIFFon 11-18-2021 BASO # 0.0 103/ul Normal 0.0-0.1 [facility] Comment on above: Performed By: #### HIRO PORTER #### [facility] [address] [place] [address] Dr. Melba Lorenzo Basophils/100 WBC (Bld) 0.4 % Normal 0.2-2.0 [facility] Comment on above: Performed By: #### HIRO PORTER #### [facility] [address] [place] [address] Dr. Melba Lorenzo EO # 0.1 103/ul Normal 0.0-0.7 [facility] Comment on above: Performed By: #### HIRO PORTER #### [facility] [address] [place] [address] Dr. Melba Lorenzo Eosinophils/100 WBC (Bld) 0.9 % Normal 0.9-7.0 [facility] Comment on above: Performed By: #### HIRO PORTER #### [facility] [address] [place] [address] Dr. Melba Lorenzo Erythrocyte distribution width (RBC) [Ratio] 12.3 % Normal 11.0-15.0 [facility] Comment on above: Performed By: #### HIRO PORTER #### [facility] [address] [place] [address] Dr. Melba Lorenzo Hematocrit (Bld) [Volume fraction] 36.8 % Normal 36.0-48.0 [facility] Comment on above: Performed By: #### U ACSIND, UMICRO #### [facility] [address] [address] [address] Melba Lorenzo Hemoglobin (Bld) [Mass/Vol] 12.8 g/dL Normal 12.0-16.0 [facility] Comment on above: Performed By: #### U ACSIND, UMICRO #### [facility] [address] [address] [address] Melba Lorenzo IG # 0.03 10e3/ul Normal 0.00-0.03 [facility] Comment on above: Performed By: #### U ACSIND, UMICRO #### [facility] [address] [address] [address] Melba Lorenzo IG % 0.4 % Normal 0.0-0.5 [facility] Comment on above: Performed By: #### U ACSIND, UMICRO #### [facility] [address] [place] [address] Dr. Melba Lorenzo LYMPH # 1.8 103/ul Normal 1.2-3.8 [facility] Comment on above: Performed By: #### U ACSIND, UMICRO #### [facility] [address] [address] [address] Melba Lorenzo Lymphocytes/100 WBC (Bld) 24.2 % Normal 20.5-60.0 [facility] Comment on above: Performed By: #### U ACSIND, UMICRO #### [facility] [address] [address] [address] Melba Lorenzo MANUAL DIFF REQ NO Normal [facility] Comment on above: Performed By: #### U ACSIND, UMICRO #### [facility] [address] [address] [address] Melba Lorenzo MCH (RBC) [Entitic mass] 30.8 pg Normal 26.7-34.0 [facility] Comment on above: Performed By: #### U ACSIND, UMICRO #### [facility] [address] [address] [address] Melba Lorenzo MCHC (RBC) [Mass/Vol] 34.8 g/dL Normal 29.9-35.2 [facility] Comment on above: Performed By: #### Dheeraj ROBLES UMICRO #### [facility] [address] [place] [address] Dr. Melba Lorenzo MCV (RBC) [Entitic vol] 88.5 fL Normal 81.0-99.0 [facility] Comment on above: Performed By: #### Dheeraj ROBLES UMICRO #### [facility] [address] [place] [address] Dr. Melba Lorenzo MONO # 0.5 103/ul Normal 0.3-0.8 [facility] Comment on above: Performed By: #### Dheeraj ROBLES ICRO #### [facility] [address] [place] [address] Dr. Melba Lorenzo Monocytes/100 WBC (Bld) 6.1 % Normal 1.7-12.0 [facility] Comment on above: Performed By: #### Dheeraj ROBLES ICRO #### [facility] [address] [place] [address] Dr. Melba Lorenzo NEUT # 5.1 103/ul Normal 1.4-6.5 [facility] Comment on above: Performed By: #### Dheeraj ROBLES ICRO #### [facility] [address] [place] [address] Dr. Melba Lorenzo Neutrophils/100 WBC (Bld) 68.0 % Normal 43.0-75.0 [facility] Comment on above: Performed By: #### Dheeraj ROBLES UMICRO #### [facility] [address] [place] [address] Dr. Melba Lorenzo Platelet mean volume (Bld) [Entitic vol] 9.3 fL Critically low 9.5-13.5 [facility] Comment on above: Performed By: #### Dheeraj ROBLES UMICRO #### [facility] [address] [place] [address] Dr. Melba Lorenzo PLT 252 103/ul Normal 150-450 [facility] Comment on above: Performed By: #### Dheeraj ROBLES UMICRO #### [facility] [address] [place] [address] Dr. Melba Lorenzo RBC 4.16 106/ul Critically low 4.20-5.40 [facility] Comment on above: Performed By: #### U NIRMAL ROBLESICRO #### [facility] [address] [place] [address] Dr. Melba Lorenzo WBC 7.5 103/ul Normal 4.0-11.0 [facility] Comment on above: Performed By: #### U NIRMAL ROBLESICRO #### [facility] [address] [place] [address] Dr. Melba Lorenzo CULTURE URINEon 11-18-2021 CULTURE URINE Culture Observations : LIGHT GROWTH OF MIXED GENITAL [place]. NO POTENTIAL PATHOGENS SEEN. Normal [facility] Comment on above: Performed By: #### U RCX #### [facility] [address] [place] [address] Dr. Melba Lorenzo GLYCOHEMOGLOBIN A1Con 2021 ADA RECOMMENDATION SEE BELOW Normal [facility] Comment on above: Result Comment: ADA RECOMMENDED LIMIT 4.0 - 6.0 ADA THERAPEUTIC TARGET < 7.0 ACTION SUGGESTED > 7.0 Performed By: #### U CELI ROBLESRO #### [facility] [address] [place] [address] Dr. Melba Lorenzo Glucose [Mass/Vol] 103 mg/dL Normal [facility] Comment on above: Performed By: #### U CELI ROBLESRO #### [facility] [address] [place] [address] Dr. Melba Lorenzo HbA1c (Bld) [Mass fraction] 5.2 % Normal 4.5-6.2 [facility] Comment on above: Performed By: #### U CELI ROBLESRO #### [facility] [address] [place] [address] Dr. Melba Lorenzo JASWANT BOX TEST PT SEND OUTo n 11-18-2021 SENT TO REF LAB 11/18/2021 Normal [facility] Comment on above: Performed By: #### N BOX #### [facility] [address] [place] [address] Dr. Melba Lorenzo TYPE AND SCREENon 11-18-2021 TYPE AND SCREEN Negative Normal [facility] Comment on above: Performed By: #### U ACSHIRO WRIGHT #### [facility] [address] [place] [address] Dr. Melba Lorenzo US PREG TVon 10-23-2021 US PREG TV EXAMINATION: US PREG TV HISTORY: Missed period COMPARISON: No relevant comparison available. FINDINGS: GESTATIONAL SAC: Present and normal appearing. POLE: Present and normal appearing. YOLK SAC: Present. CARDIAC: Present. UTERUS: Normal size and appearance. OVARIES: Right: Normal. Left: Normal. CERVIX: 4.3 cm in length and closed. CUL-DE-SAC: Normal. OTHER: None. AGE BY LMP: 9 weeks, 3 days KIANNA BY LMP: 05/25/2022 AGE BY US CRL: 8 weeks, 0 days KIANNA BY US CRL: 06/04/2022 IMPRESSION: 1. Single live intrauterine . Electronically authenticated by: JENNIFER BURCH Date: 2021-10-23 16:51 Normal [facility] Coding Summary.on 02-28-2021 Coding Summary. [id number] G h0bWw+PGhlYWQ+QE8EIND aC44fsHPysW8BN7dJSA6W AITJPQHLQO9LBZ3syAO5R AwjX4JcxzLo SzjykOHxTY21PKl1WHX8k WlfROjqbK1pwVKtO4t1Ku LaRU91yS70ZJoqUKBtRcJ 3LjZpbjsgbWFy R3ruKlInfFHaYlh+PHRhY mxlIHdpZHRoPScxMDAlJy BkaEsuCZ6sIb9iWHHtVGS vbGxhcHNlOiBj b3npRZRhQUwxSV9seDqvH 8RayWP8JYSrb8o9Hk09pT I+QENvSUH4xQxfVVoag62 2PjYsy0nfOLV4 fMAeHZgaVNP9Y69yr9T3M JBtGXRnAVU2iTI1yK0fyW issstxF3EbzXKxScI0PRR 6hTQmsY6rpTeb tzklnT6qOci+B43ANC6IR TYQBK7SGew0V3PyTmrdnC I+PQ33GLZaCZ01iWXycWB nn3stgAp4LvEl LKYnEUX3hJhyMFdrr3NmW OUfB83opAAuu5M2PXEdeL zlmPDvGqGhyCN0aU6kZCo wknxch7cawdwq Wfbgo2acmg94hW41J14cY NyhHIEwPMZ2ZOQsCPYevE uzmm8rvE5lWf5+KIzsj7t eo6vshIs2CaRm QCEvpnQdeBldQDB9i9IhS q34U3ElvBfrx0MdHzc5yu 99yFHtk3I1nNT0UBpsYES cmN2cHSoeBqJ6 MFMtUkVlmP12xRMxHFytI v8tnEzgzEsfMW5aOSOqod uaDXGgqG2cBMAawHSbmVu kCJ9jCQQxihlp k380ChNsXLJ4JCZmiAQzI 8TlnW1tXaFzXOElYOVdV3 AucJXmWEflL581ENzaEgD 0RURlwhUmQ5Tu EQLsaWkgWyJ5o3D7Kf0Ny 2RdfxlvVEE2QLqcSLB2Xy H3MgPoZbL7K9UfKyy9MFN ktFycXU5wF0As LXZizfalioolcDJ5LRXrH RIqqJ13rDQeHCtpXo1mj6 B5b648PQAwCKDkfR30Xx2 udDogMTBwdCBU yD9ynrcmb0sdmldgXwPeY LFxNFs4YKf1BPBmhMzkNv OvGQX9WmJ1OFP6fBUjpS2 hyNzbhcjbfD9p Oyc+J05mcI5vWEF1YWT6w ytiAXJglvFwEM99DZ66G2 RyPjwvdGFibGU+PGRpdiB zhGkeUO0jYlNb r1woj4ShCTyoI7XyAUBqA UgxZmh1UMZnIEH8fSO1kC 1eBSKpYXgck6I1jPJ4L0V tbkBhqv3sx9sx YUSxSIqvY72mqZYkv2I1B DVgvTS9PFJyjJfuLvTheF 93Oyc+ACFbmAnje3HxIky sf0exs0olxPx4 WdHrTGMdeiLbsZexYIY7f 5PkBl26P00aBCgmNNKfTP DmULCxVCFvvJswct1axI0 wIi8+PGNvbCB3 sAQ4lS2rGJCnHpK4LXtmR 694TzGbrGRxNteaf0flq5 yksDz2MeQiRSXvqfCrwTt gNUB9u8BdVt66 N34dGHgwWZHkJRBtXWJvD NGtaVwzfn3fsU1kGq4+PC 1ue6dwik38kB26rTJ+PHR oNAL7aLduEMwu TSPyrZ4bVPidSgV5DQDmZ cOtiP69iJKiLPniNf4guU jglUldCB2lPZJuyxwap47 5IsDlw2ulOOVu zBGrNOfeVWU3T00xi5D8C QBbHJZtWMF6aEH8zT0mgQ lnbjogbGVmdDsgdmVydGl xSLguBOtuS202 IHRvcDsnPlBhdGllbnQgT vVxJCn2O0FcFyq4YHFvqK vaSB6rqUKpUXixPp2fuNe apMqaOO1nVKBt rycnl663OfYcj5cpPBSph HVbRVeyVWD9L60ru5P1IG KrRANcZSW7bQB3yC0jpDy nbjogbGVmdDsg lzJduEwmQQpoLFhaQ114N HRvcDsnPkJpcnRoIERhdG V9IH55RB51dUBzy9I1dFR 2U3VnCQWifqqo cedswWF0NFFdXXCyjY99N u1kfZyoGc3kGUXzQGM4HN WtsJFeT4QepZ0oDpJdWXH lNNUiX3AsaJAp DZhmZ318ZFxoXwL3BOFfr zCnE5EqNHJpdUmsTpL1o6 V7Ao7CX6X1AC94FY71lNS ch2A5fXI4J1Nm MDFsrhzlfzmzjPV0IETqM QBdkO87Uu4bkSdvCs9jBJ CcAZJ9LXLgeBSlZ7ZszU2 yOiAjMDAwMDAw L6XsoAZhENewW777RXnsI tE4SLWxcpFzT4FmDCWobZ olTzV2u2N7Ll9GRNp7KA0 9GD04dYGwf2M1 cXR0A2MbDBCxiiqkkpmto XV4RYPhSHXzeE49Zr4qxY sbPs2xRROnSNW4AXBceLS fV7TcdI0vYoHr BKYgFZIkN9JqcEIdIKbuK 603VCgnKkR1MSLinfFkR4 IrHLWclOalOtS5r4J2Gk0 VSOBlWK55UTK7 vZC1TI42SX61N4DiUpjyy GFibGU+PHRhYmxlIHdpZH RoPScxMDAlJyBzdHlsZT0 hHg2mSJUnJLRw uSgphLPlYrYxb6sxKYLlN KplKY4ngIydT2EbnYK3UY Tad4m4Ml78F89gV9YzrSK +DAEadFB1aCF3 cZ3cCuPtUqB3OVxxX152J rFihTRdMlfqi2bdn5cvdK u1UkL8LGEgdyNvnLnxGHU 0n9KbLz83C28a IHdpZHRoPSIxNSUiIHZhb Imguc3uiY1wWy4+PGNvbC N3zPX6mE2tDrYtPlO8HFq kP103AbCzuEPf Zgkjp0sjt4thwNj1PhLbY CXkzvTkaSqdRXO5d1CkPo 68Q2LbiVzbu2EaSqh2cp7 0iENed8A9lXV7 I0BiVURbokirnJHpnGoqI T9mSWWpopwvQPWzjK7fCP QlY0i8HaKuNsX9SPxwH3V mprE5TOYdoTNr ERyfLRG7Z50cn3W0REZsK DNfMDK4oMK9pF4loEaudy ogbGVmdDsgdmVydGljYWw aBCpzZ542KCQa eDerPXCzvJ6zHPEvmDZid LdnDQ4pDBLdiqpeLcATW2 qVUgDmQB7BEgwBOgKZCI3 7FP61tPLhm5Z7 yNA9R2KtWFZrqxcxvghmk MX3PZMgQFPbzP43rEKtRZ rfRb6iq2R6r940QULhLFF rmS05Sj4cnSon KOMjhGZLzC2yuxmiv6stg nijOfFlZJJfPLk0HDm8OF OpbRirGzGgSXJ7LbR2GVI 5aSCsaR0qjHdp vqxobX1dVnu+MDIvMjcvM jAwMTwvdGQ+PSLsCNE3oF ozTEyvQISvlQ6oIRXqL1y 4SsWdVhF1REap A9BlDAXzklvyAz71gS0fM wUdGtP9OGbeB5WcadI7ON IceLTvEPnuQKK3V04cv4T 6JOPhNKVrOTK4 rDD7zG9elBrrwxxsmNYde DsgdmVydGljYWwtYWxpZ2 46IHRvcDsnPjIwIFllYXJ oQR91LV64rZJl z9T2pFP8T8TfAZInccmfv kirdAG2YJLjFNKunP88aW XoAXroDo0pj6F0q775NRO gRDBmdH11Ik4z cMxvVLQpeDXJhZ5ssaapg 3mpxehiRoDuLKFbLGv2AC w0SEBpcSzfTsHmEAB8VaB 9SCT9tWRmxF7f eElcjgpdrT6hUap+RmVtY GvxPS95TE76nEMto9X8xB H3T0VeSLEfbzcykxbzsLB 1BANuOKZxjN09 jJBjYZucKw5yq6Y8q901C UEaCEDqfU94Ir5waRntQO CsfJNJtC2kvpjas7niqxo gIzAwMDAwMDt0 FWx5QZMdlPheZaPtTPM1K nR0VPH3fKUvnT7mpBmxen ktxR6yRdk+Q3E2vSF7eZM udDwvdGQ+PC90 eh37J0ScQposKau2JLDiF CK8bWW1iI0lBNHsLEvtc5 U4bFM1Y9TmisZcwf5ur0l fNQEyPLgtT83g fARrc6U3WYRjqOW6QEFju DlcGqJgxH69Xie+PGNvbG vty8HyUnskr9efe8fkmOc 9IjMwJSIgdmFs jLyrHUD9g6VhFg92L25qW HdpZHRoPSIzMCUiIHZhbG nqpl7qgW4yGh8+PGNvbCB 5cPB0iM9wXqMy WcU3USqoH179UcDxkJEfS lvzr1wsx9esaPu7EaOfDH GratEliIccNDI7l1EgIn0 9O9HfqNgll5Cz Jlp5ap63wIQky9H6tBT9C 3BhZGRpbmctbGVmdDogMC 6zJDWeuarbENEquM0uOLU oB9d3KkDbBgK4 VFdxG1JxlmF1QCAhqBXtD JWfbKMXbU0torejo2obmc jcUhRtBAXzOBb7NMu1SGG saWduOiBsZWZ0 DhQ9WBS0fDUjdL8mcZioi lxriN2yGis+FDl0b0acjX RhWT4emOH5UX69ML86dQG nw5F4zEG0X7Wl JMBpopvxzezguUD9XRXhJ GUdaI08Yq0raFasFb0hBL ChNEA0RAWtuRHeC2DcdZ1 yOiAjMDAwMDAw Q4LrbFTpGBlcG552CZbyF hN7NENlejVdF9PgDUGejP wkUhM3h6S3Cj6RHW16HM2 8QG30aPOth0L0 zEE8R8HvFZWtselrtdnhp EL2UXYhOJLxgS25Cq6blL nhXb6tZDCwHKD2HQJeaJF lV9PodJ1aBxJq JQKcJTTtP9XfyAHaMVhlE 245JPchMlU7JAValgKyW4 RbWDQxtQuwAeA3y7Q3Wa4 WZz75YS11YK00 qHTox8J1qKM9G1QmSQHft nyqjbcuyDZ2IPFfSBOwrI 55Xg0euBxmCj7cQRTyCUH 2PKVdxWLrM1Fk vL4tHnFqLAIkKKNjZ0Gsj IGoDJedA970ZCveDwT1BW DxtjIwO2TbWSMjrAtuXuL 2a8D9Bz4CDNbc pbn2C6ArJgteoCK+PC90Y EDnTW92wVNpfKCpm1gxsS c1JcZpSMGbJLJ7yWwjPKs on1TfNWSiC91y bGFw (more content not included)... Normal [facility] FERRITINon 12-15-2017 FERRITIN 19 NG/ML Normal 6.24-137 [facility] Comment on above: Result Comment: ROQUE ENOPAUSAL FEMALES 6.9-282.5POSTMENOPAUSAL FEMALES 14.0-233.1 IRONon 12-15-2017 Iron 87 ug/dL Normal 37-170 [facility] Social History Date Type Detail Facility Start: 07-11-2022 Tobacco smoking status NHIS Never smoked tobacco (finding) [facility] Start: 2000 Sex Assigned At Female F [facility] Sex Assigned At Sex Assigned At Bir th [place] [employer] Other Vital Signs Date Time Vital Sign Value Performing Clinician Facility 04-21-2023 15:45-0500 Body height 158.75 cm Raquel Alarcon Other [facility] Other 04-21-2023 15:45-0500 Body mass index (BMI) [Ratio] 19.44 kg/m2 Raquel Alarcon Other [facility] Other 04-21-2023 15:45-0500 Body weight 48.99 kg Raquel Alarcon Other [facility] Other 04-21-2023 15:45-0500 Diastolic blood pressure 88 mm[Hg] Raquel Alarcon Other [facility] Other 04-21-2023 15:45-0500 Systolic blood pressure 146 mm[Hg] Raquel Alarcon Other Located Within [facility] [employer] Other 07-11-2022 23:36-0500 Body height 157.48 cm MD Raquel Alarcon Work Phone: [facility] 07-11-2022 23:36-0500 Body temperature 97.9 [degF] MD Raquel Alarcon Work Phone: [facility] 07-11-2022 23:36-0500 Body weight 60 kg MD Raquel Alarcon Work Phone: [facility] 07-11-2022 23:36-0500 Diastolic blood pressure 77 mm[Hg] MD Raquel Alarcon Work Phone: [facility] 07-11-2022 23:36-0500 Heart rate 65 /min MD Raquel Alarcon Work Phone: [facility] 07-11-2022 23:36-0500 Respiratory rate 18 /min MD Raquel Alarcon Work Phone: [facility] 07-11-2022 23:36-0500 SaO2% (BldA) [Mass fraction] 100 % MD Raquel Alarcon Work Phone: [facility] 07-11-2022 23:36-0500 Systolic blood pressure 140 mm[Hg] MD Raquel Alarcon Work Phone: [facility] 01-26-2022 17:07-0400 Body weight 62.[address] SIN STEPHEN . [facility] Comment on above: Performed By: #### AFPMAT #### [facility] [address] [place] [address] Dr. Melba Lorenzo Evaluation note 04-21-2023 Note Date & Type Note Facility 04-21-2023 Evaluation note Encounter Date Diagnosis Assessment Notes Apr, Weight loss, unintentional (ICD-10 - R63.4) Check labs to r/o anemia, glycemic issues and other metabolic causes. Apr, LLQ abdominal pain (ICD-10 - R10.32) Check US. Follow w OB as scheduled. [facility] Other History general Narrative - Reported 05-31-2022 Note Date & Type Note Facility 05-31-2022 History general N arrative - Reported Type Medical History Exercise-induced asthma Surgical History Problem Title : None , Problem Status : Active, Surgical History C - Section 05-31-2022 [facility] Other Discharge summary note 05-30-2022 Note Date & Type Note Facility 05-30-2022 Note DISCHARGE DATE: 05/07 PRIMARY DIAGNOSES: 1. Intrauterine at 39 weeks. 2. Breech presentation. PROCEDURE: Primary low transverse section. HOSPITAL COURSE: As expected. Please see chart for full details. LABORATORY DATA: Please see chart. COMPLICATIONS: None. DISCHARGE CONDITION: Stable. CONSULTATION: Anesthesia. DISCHARGE INSTRUCTIONS: 1. Diet: Regular. 2. Medications: a. Percocet 5/325 one to two p.o. every 4-6 hours p.r.n. pain. b. Motrin 800 one p.o. every 8 hours p.r.n. pain. 3. Followup in one week. Restrictions: Pelvic rest for 6 weeks. No heavy lifting. May drive when pain free and no longer on narcotics. [facility] Discharge summary note 05-30-2022 Note Date & Type Note Facility 05-30-2022 Note DISCHARGE SUMMARY DISCHARGE DATE: 06/23/2022 PRIMARY DIAGNOSES: 1. Intrauterine at 39 weeks. 2. Breech presentation. PROCEDURE: Primary low transverse section. HOSPITAL COURSE: As expected. Please see chart for full details. LABORATORY DATA: Please see chart. COMPLICATIONS: None. DISCHARGE CONDITION: Stable. CONSULTATION: Anesthesia. DISCHARGE INSTRUCTIONS: 1. Diet: Regular. 2. Medications: a. Percocet 5/325 one to two p.o. every 4-6 hours p.r.n. pain. b. Motrin 800 one p.o. every 8 hours p.r.n. pain. 3. Followup in one week. Restrictions: Pelvic rest for 6 weeks. No heavy lifting. May drive when pain free and no longer on narcotics. [facility] Clinical Note 05-30-2022 Note Date & Type Note Facility 05-30-2022 Note OPERATIVE NOTE OPERATION DATE: 05/31/2022 PROCEDURE: Primary low transverse section. PREOPERATIVE DIAGNOSIS: 1. Intrauterine at 39 weeks. 2. Breach presentation. POSTOPERATIVE DIAGNOSIS: 1. Intrauterine at 39 weeks. 2. Breach presentation. ANESTHESIA: Spinal with Duramorph. SURGEON: Sin Stephen D.O. MEMORIAL DESIGNER: HARLEEN Alvarado URINE OUTPUT: Yellow and clear. BLOOD LOSS: 575 mL FINDINGS: Viable female . Apgars 9 at 1, 9 at 5. Weight unknown at this time. SPECIMEN: Placenta. PROCEDURE: Patient was taken back to the Operating Room where she was given a spinal anesthesia with Duramorph without difficulty. She was prepped and draped in the normal sterile fashion. A Pfannenstiel skin incision was then made 2 cm above the symphysis pubis and carried down to underlying rectus fascia using a Bovie. The fascia was incised in the midline and extended laterally using Fragoso scissors. Two Rocael clamps were placed on the superior aspect of the fascia and dissected off the underlying rectus muscles. The same was performed on the inferior aspect as well. The muscles were then in the midline. Peritoneum was identified and entered bluntly. The peritoneum was then extended superiorly and inferiorly with good visualization of the bladder. The bladder blade was inserted. A low transverse incision was made on the patient's uterus and extended laterally digitally. The infant was then delivered atraumatically after the bladder blade was removed in the cephalic position. The cord was clamped and cut. Cord blood was obtained. The was handed off to awaiting team. The patient's placenta was spontaneously delivered. The uterus was then exteriorized. The uterus was cleared of all clots and debris. The bladder blade was reinserted. The patient's uterine incision was closed using #0 Vicryl in a running lock fashion. Excellent hemostasis was assured. The uterus was then returned to the patient's abdomen. The patient's abdomen was copiously irrigated using warm saline. Peritoneal gutters were cleared of all clots and debris. Again excellent hemostasis was assured. The patient's peritoneum was closed using 3-0 Vicryl in a running fashion. The patient's fascia was closed using #0 Vicryl in a running fashion. The patient's skin was closed using 4-0 Vicryl subcuticularly. The patient tolerated the procedure well. Sponge, lap, and needle counts were correct x2. The patient was taken to the Recovery Room in stable condition. The [facility] Evaluation note Note Date & Type Note Facility Evaluation note No assessment information [facility] Work Phone: Evaluation note Note Date & Type Note Facility Evaluation note No Information Located Within [facility] Other Summary Purpose Family History No Family History Records FoundNo Family History Records FoundNo Family History Records FoundNo Family History Records Found Advance Directives Advance Directive Response Recorded Date/ Time Advance Directives No July 12, 2022 1:23am Chief Complaint and Reason for Visit Chief Complaint post surgery issues Additional Source Comments INFORMATION SOURCE (unrecogn ized section and content) DATE CREATED AUTHOR 12/16/2017 [facility] DATE CREATED AUTHOR AUTHOR'S ORGANIZ ATION 02/11/2022 [facility] DATE CREATED AUTHOR AUTHOR'S ORGANIZ ATION 08/12/2022 [facility] DATE CREATED AUTHOR AUTHOR'S ORGANIZ ATION 08/18/2022 [facility] Care Teams (unrecognized sec tion and content) Team Status: Inactive Member Role Status Dates Raquel Alarcon MD Primary Care Provider Active Piter Bowers DO Emergency Provider Active Team Status: Active Member Role Status Dates Raquel Alarcon MD Primary Care Provider Active Goals (unrecognized section and content) Goals may be documented in a n alternate sectionNo InformationNo InformationNo Information REASON FOR VISIT (unrecogniz ed section and content) CHECK UPmessageUS result FOR RECORDS PERTAINING TO PATIENTS WHO ARE OR HAVE BEEN ENROLLED IN A CHEMICAL DEPENDENCY/SUBSTANCEABUSE PROGRAM, SOME INFORMATION MAY BE OMITTED. This clinical summary was aggregated from multiple sources. Caution should be exercised in using it in the provision of clinical care. This summary normalizes information from multiple sources, and as a consequence, information in this document may materially change the coding, format and clinical context of patient data. In addition, data may be omitted in some cases. CLINICAL DECISIONS SHOULD BE BASED ON THE PRIMARY CLINICAL RECORDS. [facility]. provides no warranty or guarantee of the accuracy or completeness of information in this document.
== END 2024-01-10 19:23 | disposition home or self-care (01) ==
LOC: LAB 19:22
PROVIDERS: PCP Family Medicine; Visit Provider Obstetrics & Gynecology
DX: Z01.419 Encounter for gynecological examination (general) (routine) without abnormal findings (principal)
CPT/HCPCS: 88175

== ENCOUNTER 2024-11-08 11:47 | Outpatient (OUT) | payer OTHER, SELFPAY ==
--- OUTSIDE RECORDS SUMMARY | 2024-11-08 10:20 | XMS_ITS | Encounter Summary ---
Author Organization [facility] Address [address] [place] [address] Care Team Providers Care District Representative Name Role Phone Raquel Hinkle MD Primary Care Provider [phone] Reason for Visit * Reason Comments Dyspareunia Encounter Details Date Type Department Care Team (Late Contact Info) Description 11/08/2024 10:20 AM EDT Office Visit [facility] [address] [facility] [place] [address] Elijah Stephen, DO [address] [facility] [place] [address] Dyspareunia in female; Irregular menstrual cycle Social [...] 3:45 PM EDT documented in this encounter Plan of Treatment Upcoming Encounters Date Type Department Care Team (Late st Contact Info) Description 02/18/2025 9:00 AM EDT Office Visit [facility] [address] [facility] [place] [address] Elijah Stephen DO [address] [facility] [place] [address] 03/15/2025 8:30 AM EDT Office Visit [facility] [address] [place] [address] Livier He PA [address] [place] [address] Scheduled Orders Name Type Priority Associated [...] Negative Urine 11/08/2024 11:4 6 AM EDT Elijah Zafar DO POINT OF CARE TEST [...] Positive Urine 11/08/2024 11:4 5 AM EDT Elijah Zafar DO POINT OF CARE TEST ENTER/EDIT OR DERABLES Final Result documented in this encounter Visit Diagnoses Diagnosis Dyspareunia in female Irregular menstrual cycle documented in this encounter Care Teams District Representative Relationship Specialty Start Date End Date Raquel Hinkle MD [address] [place] [address] PCP - General 12/20/22 documented as of this encounter
--- OUTSIDE RECORDS SUMMARY | 2024-11-08 11:56 | XMS_ITS | Encounter Summary ---
Author Organization [facility] Address [address] [place] [address] Care Team Providers Care Embalmer Apprentice Name Role Phone Clint Tejada MD Primary Care Provider [phone] Reason for Visit * Reason Comments Medication Refill Encounter Details Date Type Department Care Team (Late st Contact Info) Description 08/27/2019 Refill [facility] OBST[facility]ICS & [facility]YNECOLOGY [address] [place] [address] Dr [address] [place] [id number] Jaqueline Quijano ORGAN TEACHER - [address] [place] [address] Medication Refill Social History Tobacco Use Types Packs/Day Years Used Date Smoking Tobacco: Never Smokeless Tobacco: Never Alcohol Use Standard Drinks/Week Comments No 0 (1 standard drink = 0.6 oz pur e alcohol) PHQ-2 Answer Date Recorded PHQ-2 Score 0 09/06/2018 Comments No Sex and Gender Information Value Date Recorded Sex Assigned at Not on file Legal Sex Female 8:45 PM EST Gender Identity Not on file Sexual Orientation Not on file documented as of this encounter Plan of Treatment Not on file documented as of this encounter Visit Diagnoses Diagnosis Dysmenorrhea in the adolescent Dysmenorrhea DUB (dysfunctional uterine bleeding) Other disorder of menstruation and other abnormal bleeding from female genital tract documented in this encounter Care Teams Embalmer Apprentice Relationship Specialty Start Date End Date Clint Tejada MD [address] [place] [address] PCP - General Pediatrics 11/24/16 documented as of this encounter
--- OUTSIDE RECORDS SUMMARY | 2024-11-08 11:56 | XMS_ITS | Clinical Summary ---
Author Organization [facility] Address [address] [place] [address] Care Team Providers Care Planner Scheduler Name Role Phone Clint Tejada MD Primary Care Provider [phone] Allergies No known active allergies Medications albuterol sulfate HFA 108 (90 Base) MCG/ACT inhaler Inhale 2 puffs into the lungs every 6 hours as needed for Wheezing Active SPRINTEC 28 0.25-35 MG-MCG per tabletIndicatio ns:Dysmenorrhea in the adolescent,DUB (dysfunctional uterine bleeding) Take 1 tablet by mouth once daily 3 packet 3 08/28/2019 Active Active Problems No known active problems Immunizations Immunization Administration Dates Next Due Influenza Vaccine, unspecified formulation 03/21,03/14/2017 Family History Medical History Relation Name Comments No Known Problems Father No Known Problems Mother No Known Problems Sister 1 No Known Problems Sister 2 Relation Name Status Comments Father Alive Maternal Grandfather Alive Maternal Grandmother Alive Mother Alive Paternal Grandfather Alive Paternal Grandmother Alive Sister 1 Alive Sister 2 Alive Social History Tobacco Use Types Packs/Day Years [...] on file Sexual Orientation Not on file Last Filed Vital Signs Vital Sign Reading Time Taken Comments Blood Pressure 118/68 07/25/2018 9:54 AM EST Pulse 71 11/24/2016 1:16 PM EDT Temperature 36.4 C (97.5 F) 11/24/2016 1:16 PM EDT Respiratory Rate 20 11/24/2016 1:16 PM EDT Oxygen Saturation 97% 11/24/2016 1:16 PM EDT Inhaled Oxygen Concentration - - Weight 61.7 kg (136 lb) 07/25/2018 9:54 AM EST Height 157.5 cm (5' 2 ) 07/25/2018 9:54 AM EST Body Mass Index 24.87 07/25/2018 9:54 AM EST Plan of Treatment Not on file Insurance [facility] [address] [employer] Care Teams Planner Scheduler Relationship Specialty Start Date End Date Clint Tejada MD [address] [place] [address] PCP - General Pediatrics 11/24/16
--- OUTSIDE RECORDS SUMMARY | 2024-11-08 11:56 | XMS_ITS | Encounter Summary ---
Author Organization [facility] Address [address] [place] [address] Care Team Providers Care Yard Spotter Name Role Phone Raquel Hinkle MD Primary Care Provider [phone] Encounter Details Date Type Department Care Team (Late st Contact Info) Description 11/08/2024 Bamboo flowsheet [facility] OB [address] [place] [address] Elijah Stephen [facility] [address] [place], [facility] Social History Tobacco Use Types Packs/Day Years [...] AM EDT documented as of this encounter Plan of Treatment Upcoming Encounters Date Type Department Care Team (Late st Contact Info) Description 02/18/2025 9:00 AM EDT Office Visit [facility] OB [address] [place] [address] Elijah Stephen [facility] [address] [place], [facility] 03/15/2025 8:30 AM EDT Office Visit [facility] [address] [place] [address] Livier He PA [address] [place] [address] documented as of this encounter Visit Diagnoses Not on filedocumented in this encounter Care Teams Yard Spotter Relationship Specialty Start Date End Date Raquel Hinkle MD [address] [place] [address] PCP - General 12/20/22 documented as of this encounter
--- OUTSIDE RECORDS SUMMARY | 2024-11-08 11:56 | XMS_ITS | Encounter Summary ---
Author Organization [facility] Address [address] [place] [address] Care Team Providers Care Advertising Sales Consultant Name Role Phone Clint Tejada MD Primary Care Provider [phone] Reason for Visit * Reason Comments Medication Refill Encounter Details Date Type Department Care Team (Late st Contact Info) Description 08/25/2019 Refill [facility] OBSTETRICS & GYNECOLOGY [address] [place] [address] Dr [address] [place] [phone] Jaqueline Quijano REVIEW APPRAISER - [address] [place] [address] Medication Refill Social History Tobacco [...] tract documented in this encounter Care Teams Advertising Sales Consultant Relationship Specialty Start Date End Date Clint Tejada MD [address] [place] [address] PCP - General Pediatrics 11/24/16 documented as of this encounter
--- OUTSIDE RECORDS SUMMARY | 2024-11-08 11:57 | XMS_ITS | Clinical Summary ---
Author Organization [facility] Address [address] [place] [address] Care Team Providers Care Tripe Scraper Name Role Phone Raquel Hinkle MD Primary Care Provider [phone] Allergies No known active allergies Medications albuterol HFA 90 mcg/act inhaler Inhale 2 puffs every 6 (six) hours if needed Active betamethasone dipropionate 0.05 % creamIndications :Dyshidrotic eczema APPLY THIN LAYER (1.5 GRAMS) TO AFFECTED AREAS ON HANDS TWICE DAILY NEEDED. HOLD WHEN CLEAR, USED WHEN FLARED. AVOID USE ON FACE, SKIN FOLDS AND GROIN 45 g 03/15/20 24 025 Active norethindrone-et hinyl estradiol (Junel 06/25) 1-20 MG-MCG tabletIndication s: control counseling Take 1 tablet by mouth Daily 28 tablet 07/09/19 25 026 Active desogestrel-ethi nyl estradiol (Apri) 0.15-30 MG-MCG tabletIndication s:Dyspareunia in female,Irregular menstrual cycle Take 1 tablet by mouth Daily for 28 days Take 1 tablet by mouth daily 28 tablet 11/09/19 25 025 Active doxycycline (Vibramycin) 100 MG capsuleIndicatio ns:Dyspareunia in female,Irregular menstrual cycle Take 1 capsule (100 mg) by mouth in the morning and 1 capsule (100 mg) before bedtime. Do all this for 14 days. 28 capsule 11/09/19 25 025 Active Ciclopirox 0.77 % gelIndications:O nychomycosis Apply thin layer to affected area once a day, 30 day supply 30 g 2 03/15/20 24 025 Discontinued Active Problems No known active problems Encounters Date Type Department Care Team Description 11/08/2024 10:20 AM EDT Office Visit [facility] [address] [place] [address] Elijah Stephen, Dyspareunia in female; Irregular menstrual cycle 11/08/2024 Bamboo flowsheet [facility] [address] [place] [address] Elijah Stephen DO 11/01/2024 Orders Only [facility] [address] [place] [address] Marilee Landrum LPN from Last 3 Months Family History Relation Name Status Comments Father Alive Mother Alive Social History Tobacco Use Types Packs/Day Years Used Date Smoking Tobacco: Never Smokeless Tobacco: Never Tobacco Cessation:Counseling Given: Not Answered Alcohol Use Standard Drinks/Week Comments Never 0 (1 standard drink = 0.6 oz pur e alcohol) Comments Unknown Sex and Gender Information Value Date Recorded Sex Assigned at Female 12/20/2022 6:35 AM EDT Legal Sex Female 6:37 PM EDT Gender Identity Female 12/20/2022 6:35 AM EDT Sexual Orientation Straight 12/20/2022 6: 35 AM EDT Last Filed Vital Signs Vital Sign Reading Time Taken Comments Blood Pressure 120/64 11/08/2024 10:46 AM EDT Pulse - - Temperature - - Respiratory Rate - - Oxygen Saturation - - Inhaled Oxygen Concentration - - Weight 53.3 kg (117 lb 8 oz) 11/08/2024 10:46 AM EDT Height 157.5 cm (5' 2 ) 12/21/2022 3:45 PM EDT Body Mass Index 21.49 12/21/2022 3:45 PM EDT Plan of Treatment Upcoming Encounters Date Type Department Care Team (Late st Contact Info) Description 02/18/2025 9:00 AM EDT Office Visit [facility] [address] [place] [address] Elijah Stephen, DO [address] [place] [address] [place] [address] 03/15/2025 8:30 AM EDT Office Visit [facility] [address] [place] [address] Livier He PA [address] [place] [address] Health Maintenance Due Date Last Done Comments Influenza Vaccine (Season Ended) 2025 05/06/2022, 04/08/2021, 03/25/2020, Additional history exists Procedures Procedure Name Priority Date/Time Associated Diagnosis Comments POCT , URINE Routine 11/08/2024 11:46 AM EDT Dyspareunia in female Irregular menstrual cycle POCT URINALYSIS DIPSTICK Routine 11/08/2024 11:45 AM EDT Dyspareunia in female Irregular menstrual cycle from Last 3 Months Results * POCT , urine manually resulted (11/08/2024 11:46 AM EDT) Preg Test, Ur Negative Negative Urine 11/08/2024 11:4 6 AM EDT Elijah Stephen DO POINT OF CARE TEST ENTER/EDIT OR [...] - 9 Protein, UA Positive Negative - 1999(20) ++++ mg/dL Comment:30mg/dL Urobilinogen, UA 0.2 0.2 - 12 mg/dL Leukocytes, UA Trace Negative - 500+++ Jennifer/mcL Nitrite, UA Negative Negative - Positive Urine 11/08/2024 11:4 5 AM EDT Elijha Stephen DO POINT OF CARE TEST ENTER/EDIT OR DERABLES Final Result from Last 3 Months Insurance [employer] Care Teams Tripe Scraper Relationship Specialty Start Date End Date Raquel Hinkle MD [address] [place] [id number] PCP - General 12/20/22
--- OUTSIDE RECORDS SUMMARY | 2024-11-08 11:57 | XMS_ITS | Encounter Summary ---
Author Organization [facility] Address [address] [place] [address] Care Team Providers Care Surety Bond Agent Name Role Phone Raquel Hinkle MD Primary Care Provider Encounter Details Date Type Department Care Team (Late st Contact Info) Description 11/01/2024 Orders Only [facility] [address] [place] [address] Marilee Landrum LPN [address] [place] [id number] Social History Tobacco Use Types Packs/Day Years [...] 02/18/2025 9:00 AM EDT Office Visit [facility] [address] [place] [address] Elijah Stephen DO [address] [place] [address] 03/15/2025 8:30 AM EDT Office Visit [facility] [address] [place] [address] Livier He PA [address] [place] [address] documented as of this encounter Procedures Procedure Name Priority Date/Time Associated Diagnosis Comments PAP SMEAR Routine 01/10/2024 12:00 AM EDT documented in this encounter Results * Pap Smear (01/10/2024 12:00 AM EDT) Swab Cervical swab / Unknown us [facility] Nurse LAB CYTOLOGY ORDERABLES Final Result EXTERNAL LAB documented in this encounter Visit Diagnoses Not on filedocumented in this encounter Care Teams Surety Bond Agent Relationship Specialty Start Date End Date Raquel Hinkle MD [address] [place] [id number] PCP - General 12/20/22 documented as of this encounter
--- OUTSIDE RECORDS SUMMARY | 2024-11-08 12:07 | XMS_ITS | CCD ---
Author Organization [facility] Care Team Providers Care Collection Specialist Name Role Phone SKYE REARDON Unavailable Unavailable SKYE REARDON Unavailable Unavailable MD Raquel Alarcon Primary Care Provider [phone] DO Piter [facility]ers Emergency Provider ADDY ., DR VOGT Attending Unavailable ADDY [...] Unavailable ADDY ., DR VOGT Attending Unavailable DADY ., DR VOGT Admitting Unavailable ALARCON, DR RAQUEL Tobin Primary Care Unavailable ADDY ., DR VOGT Consulting Unavailable AGNES, DR RAQUEL Tobin Primary Care Unavailable DIAB ., SALAZAR Admitting Unavailable DIAB ., SALAZAR Attending Unavailable HAY ., DR DURÁN Consulting Unavailable KARASIK ., DR HARPER Admitting Unavailabl e KARASIK ., DR HARPER Consulting Unavailjono e AGNES, DR RAQUEL Tobin Primary Care Unavailable KARASIK ., DR HARPER Attending Unavailabl e MURTAZA BAJWA Consulting Unavailable MURTAZA BAJWA Attending Unavailable AGNES, DR RAQUEL Tobin Primary Care Unavailable MURTAZA BAJWA Admitting Unavailable ADDY ., DR VOGT Admitting Unavailable KARASIK ., DR HARPER Consulting Unavailjono e ALARCON, DR RAQUEL Tobin Primary Care Unavailable ADDY ., DR VOGT Attending Unavailable ADDY ., DR VOGT Consulting Unavailable ADDY ., DR VOGT Procedure Practitioner Unavail able GHAZAL MCLEAN Consulting Unavailable VALERY RICO Consulting Unavailable ADDY ., DR VOGT Consulting Unavailable ADDY ., DR VOGT Admitting Unavailable ADDY ., DR VOGT Attending Unavailable ZIEBER, DR JENNIFER Atkins Consulting Unavailable ADDY ., DR VOGT Consulting Unavailable ADDY ., DR VOGT Attending Unavailable ADDY ., DR VOGT Admitting Unavailable ADDY ., DR VOGT Attending Unavailable ADDY ., DR VOGT Admitting Unavailable ADDY ., DR VOGT Consulting Unavailable Raquel Alarcon Unavailable SIN STEPHEN Attending Unavailable BLAINE HE Attending Unavailable BLAINE HE Attending Unavailable Raquel Alarcon MD Primary Care Provider Raquel Alarcon MD Primary Care Provider Raquel Alarcon MD Attending Provider [phone] Raquel Alarcon Attending Unavailable Raquel Alarcon Primary Care Unavailable Raquel Alarcon Admitting Unavailable Allergies Allergy Classification Reported Allergen(s) Allergy Type Date of Onset Reaction(s) Facility (1 source) Penicillin Drug Allergy 05-31-2022 [facility] Medications Current Medications Medication Drug Class(es) Dates Sig (Normalized) Sig (Original) [id number] 200 actuat albuterol 0.09 mg/actuat metered dose inhaler (3 sources) beta2-Adrenergic Agonist Start: 04-11-2024 Albuterol Sulfate (Ventolin Hfa) 90 mcg/actuation HFA aerosol inhaler Active INHALATION April 11, 2024 12:00am FreeTextSig: Ventolin HFA 108 (90 Base)MCG/ACT, 2 puffs Puff every four hours, as needed # 1, 02/10/2021, Ref. x3. Active Inhalation every four hours, as needed; Note: Source Status: Taking; Refills: 1; Provider: Agnes García ( ) take 2 puff(s) by in halation every six hours albuterol HFA 90 mcg/act inhaler Inhale 2 puffs every 6 (six) hours if needed Active betamethasone 0.5 mg/ml topical cream (7 sources) Corticosteroid Start: 02-20-2024 End: 03-15-2025 betamethasone dipropionate 0.05 % cream Indications: Dyshidrotic eczema APPLY THIN LAYER (1.5 GRAMS) TO AFFECTED AREAS ON HANDS TWICE DAILY NEEDED. HOLD WHEN CLEAR, USED WHEN FLARED. AVOID USE ON FACE, SKIN FOLDS AND GROIN 45 g 11 03/15/2024 03/15/2025 Active Start: 02-14-2024 betamethasone dipropionate 0.05 % cream Indications: Other atopic dermatitis Apply topically 2 (two) times a day as needed (Rash) 45 g 11 02/14/2024 Active ciclopirox 0.0077 mg/mg topical gel (2 sources) Start: 03-15-2024 Ciclopirox 0.7 7 % gel Indications: Onychomycosis Apply thin layer to affected area once a day, 30 day supply 30 g 2 03/15/2024 Active Ethinyl Estradiol / Ferrous fumarate / Norethindrone (6 sources) Estrogen Start: 12-21-2022 norethindrone- ethinyl estradiol (06/25) 1-20 MG-MCG tablet Indications: control counseling Take 1 tablet by mouth in the morning. 28 tablet 11 12/21/2022 Active Ventolin HFA 108 (90 Base)MCG/ACT (3 sources) Start: 02-10-2021 Ventolin HFA 1 08 (90 Base)MCG/ACT Ventolin HFA 108 (90 Base)MCG/ACT, 2 puffs Puff every four hours, as needed # 1, 02/10/2021, Ref. x3. Active Inhalation every four hours, as needed for 0 07 Feb, 2021 Active Completed/Discontinued Medications Medication Drug Class(es) Dates Sig (Normalized) Sig (Original) sulfamethoxazole 800 mg / trimethoprim 160 mg oral tablet (2 sources) Dihydrofolate Reductase Inhibitor Antibacterial, Sulfonamide Antimicrobial Start: 07-12-2022 End: 04-11-2024 take 1 tablet by mouth twice daily Sulfamethoxazole- Trimethoprim (Bactrim Ds) 800-160 mg tablet Discontinued 1 TAB PO Twice daily July 12, 2022 12:00am April 11, 2024 8:18am Problems Active Problems Problem Classification Problem Date Documented Da te Episodic/Chronic Abdominal pain (1 source) Left lower quadrant pain Episodic Allergic reactions (2 sources) Atopic dermatitis; Translations: [Other atopic dermatitis] 02-14-2024 Chronic Asthma (4 sources) Unspecified asthma, uncomplicated; Translations: [Exercise-induced asthma] Onset: 06-10-2022 Chronic Complications of surgical procedures or medical care (2 sources) Wound dehiscence; Translations: [Disruption of wound, unspecified, initial encounter] 07-12-2022 Episodic Comment on above: Problem List clean-u p per request of Phys. EHR Cmte Early or threatened labor (4 sources) False labor at or after 37 completed weeks of gestation; Translations: [FALSE LABOR AT/AFTR 37 CMPL WK GEST] Onset: 05-22-2022 Episodic Malposition; malpresentation (1 source) Maternal care for breech presentation, not applicable or unspecified; Translations: [MATERNAL CARE BREECH PRES NA/UNS] Onset: 06-10-2022 Episodic Menstrual disorders (4 sources) Irregular menstruation, unspecified; Translations: [IRREGULAR MENSTRUATION UNSPECIFIED] Onset: 11-18-2021 Chronic Mycoses (3 sources) Candidiasis, unspecified; Translations: [Onychomycosis] Onset: 02-02-2022 03-15-2024 Episodic Other complications of ; puerperium affecting management of mother (4 sources) Disruption of delivery wound; Translations: [DISRUPTION DELIVERY WOUND] Onset: 07-10-2022 Episodic Other complications of ; puerperium affecting management of mother (1 source) Diseases of the respiratory system complicating childbirth; Translations: [DISEASES RESP SYS COMP CHILDBIRTH] Onset: 06-10-2022 Episodic Other complications of (2 sources) Diseases of the respiratory system complicating , third trimester; Translations: [DISEASES RESP SYS COMP PREG 3RD TRI] Onset: 05-30-2022 Episodic Other nutritional; endocrine; and metabolic disorders (3 sources) Abnormal weight loss; Translations: [Loss of weight] Onset: 04-12-2024 Episodic Other nutritional; endocrine; and metabolic disorders (1 source) Abnormal weight loss; Translations: [Abnormal weight loss] 04-11-2024 Episodic Other and delivery including normal (7 sources) Single live ; Translations: [Encounter for supervision of normal first , second trimester] Onset: 10-28-2021 Episodic Other skin disorders (2 sources) Vesicular eczema; 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]] 03-15-2024 Episodic Residual codes; unclassified (1 source) 39 [...] sexual mode of transmission] Onset: 11-20-2021 Episodic Other complications of (4 sources) Maternal [...] WEEKS GESTATION OF ] Onset: 01-20-2022 Episodic Results Test Name Value Interpretation Reference Range Facility Alanine aminotransferase [En zymatic activity/volume] in Serum or PlasmaOrdered By: Raquel Alarcon on 04-12-2024 ALT [Catalytic activity/Vol] Alanine aminotransferase [Enzymatic activity/volume] in Serum or Plasma 7-52 [facility] Albumin [Mass/volume] in Ser um or Plasma by Bromocresol green (BCG) dye binding methoOrdered By: Raquel Alarcon on 04-12-2024 Albumin BCG dye [Mass/Vol] Albumin [Mass/volume] in Serum or Plasma by Bromocresol green (BCG) dye binding metho 3.5-5.7 [facility] Alkaline phosphatase [Enzyma tic activity/volume] in Serum or PlasmaOrdered By: Raquel Alarcon on 04-12-2024 ALP [Catalytic activity/Vol] Alkaline phosphatase [Enzymatic activity/volume] in Serum or Plasma 34-104 [facility] Aspartate aminotransferase [ Enzymatic activity/volume] in Serum or PlasmaOrdered By: Raquel Alarcon on 04-12-2024 AST [Catalytic activity/Vol] Aspartate aminotransferase [Enzymatic activity/volume] in Serum or Plasma 13-39 [facility] Basophils Auto (Bld) [#/Vol] Ordered By: Raquel Alarcon on 04-12-2024 Basophils (Bld) [#/Vol] Automated basoph il count 0.0-0.2 [facility] Basophils/100 WBC Auto (Bld) Ordered By: Raquel Alarcon on 04-12-2024 Basophils/100 WBC (Bld) Automated basophil % . [facility] Bilirubin.total [Mass/volume ] in Serum or PlasmaOrdered By: Raquel Alarcon on 04-12-2024 Bilirubin [Mass/Vol] Bilirubin.total [Mass/volume] in Serum or Plasma 0.3-1.0 [facility] Calcium [Mass/volume] in Ser um or PlasmaOrdered By: Raquel Alarcon on 04-12-2024 Calcium [Mass/Vol] Calcium [Mass/volume] in Serum or Plasma 8.6-10.3 [facility] Carbon dioxide, total [Moles /volume] in Serum or PlasmaOrdered By: Raquel Alarcon on 04-12-2024 CO2 [Moles/Vol] Carbon dioxide, total [Moles/volume] in Serum or Plasma 21.0-31.0 [facility] Chloride [Moles/volume] in S michel or PlasmaOrdered By: Raquel Alarcon on 04-12-2024 Chloride [Moles/Vol] Chloride [Moles/volume] in Serum or Plasma 98-107 [facility] Complete Blood Count Auto Di ffon 04-12-2024 Basophils (Bld) [#/Vol] 0.0 10*3/uL Normal 0.0-0.2 [facility] Comment on above: Result Comment: PERF ORMED BY: [place] [address] PATHOLOGIST PAINT SPRAYING MACHINE OPERATOR HELPER DAVID PRETTY M.D. Performed By: #### T SH3, CBC, CMP #### [address] Basophils/100 WBC (Bld) 0.9 % Normal . [facility] Comment on above: Performed By: #### T SH3, CBC, CMP #### [address] Eosinophils (Bld) [#/Vol] 0.1 10*3/uL Normal 0.0-0.45 [facility] Comment on above: Performed By: #### T SH3, CBC, CMP #### [address] Eosinophils/100 WBC (Bld) 1.2 % Normal . [facility] Comment on above: Performed By: #### T SH3, CBC, CMP #### [address] Erythrocyte distribution width (RBC) [Ratio] 12.9 % Normal 11.9-15.3 [facility] Comment on above: Performed By: #### T SH3, CBC, CMP #### [address] Hematocrit (Bld) [Volume fraction] 39.2 % Normal 34.0-46.4 [facility] Comment on above: Performed By: #### T SH3, CBC, CMP #### [address] Hemoglobin (Bld) [Mass/Vol] 13.5 g/dL Normal 11.8-15.4 [facility] Comment on above: Performed By: #### T SH3, CBC, CMP #### [address] Lymphocytes (Bld) [#/Vol] 1.5 10*3/uL Normal 1.00-4.8 [facility] Comment on above: Performed By: #### T SH3, CBC, CMP #### [address] Lymphocytes/100 WBC (Bld) 29.9 % Normal . [facility] Comment on above: Performed By: #### T SH3, CBC, CMP #### [address] MCH (RBC) [Entitic mass] 30.6 pg Normal 24.7-34.3 [facility] Comment on above: Performed By: #### T SH3, CBC, CMP #### [address] MCV (RBC) [Entitic vol] 89.0 fL Normal 80-100 [facility] Comment on above: Performed By: #### T SH3, CBC, CMP #### [address] Mean Corpuscular HGB Conc 34.4 g/dL Normal 32.0-35.0 [facility] Comment on above: Performed By: #### T SH3, CBC, CMP #### [address] Monocytes (Bld) [#/Vol] 0.3 10*3/uL Normal 0.0-0.8 [facility] Comment on above: Performed By: #### T SH3, CBC, CMP #### [address] Monocytes/100 WBC (Bld) 6.7 % Normal . [facility] Comment on above: Performed By: #### T SH3, CBC, CMP #### [address] Neutrophils (Bld) [#/Vol] 3.2 10*3/uL Normal 1.8-7.7 [facility] Comment on above: Performed By: #### T SH3, CBC, CMP #### [address] Neutrophils/100 WBC (Bld) 61.3 % Normal . [facility] Comment on above: Performed By: #### T SH3, CBC, CMP #### [address] NRBC% 0.1 /100{WBC} Normal 0-0.5 [facility] Comment on above: Performed By: #### T SH3, CBC, CMP #### [address] Platelet mean volume (Bld) [Entitic vol] 7.9 fL Normal 6.3-10.7 [facility] Comment on above: Performed By: #### T SH3, CBC, CMP #### [address] Platelets (Bld) [#/Vol] 239 10*3/uL Normal 150-450 [facility] Comment on above: Performed By: #### T SH3, CBC, CMP #### [address] RBC (Bld) [#/Vol] 4.40 10*6/uL Normal 3.60-5.00 [facility] Comment on above: Performed By: #### T SH3, CBC, CMP #### [address] WBC (Bld) [#/Vol] 5.2 10*3/uL Normal 3.8-11.6 [facility] Comment on above: Performed By: #### T SH3, CBC, CMP #### [address] Comprehensive Metabolic Pane marilin 04-12-2024 Albumin [Mass/Vol] 5.0 g/dL Normal 3.5-5.7 [facility] Comment on above: Performed By: #### T SH3, CBC, CMP #### [address] Albumin/Globulin [Mass ratio] 2.6 {ratio} Normal [facility] Comment on above: Performed By: #### T SH3, CBC, CMP #### [address] ALP [Catalytic activity/Vol] 55 U/L Normal 34-104 [facility] Comment on above: Performed By: #### T SH3, CBC, CMP #### [address] ALT [Catalytic activity/Vol] 29 U/L Normal 7-52 [facility] Comment on above: Performed By: #### T SH3, CBC, CMP #### [address] Anion gap [Moles/Vol] 9.0 mmol/L Normal 6.0-15.0 [facility] Comment on above: Performed By: #### T SH3, CBC, CMP #### [address] AST [Catalytic activity/Vol] 27 U/L Normal 13-39 [facility] Comment on above: Performed By: #### T SH3, CBC, CMP #### [address] Bilirubin [Mass/Vol] 0.8 mg/dL Normal 0.3-1.0 [facility] Comment on above: Performed By: #### T SH3, CBC, CMP #### [address] Calcium [Mass/Vol] 9.9 mg/dL Normal 8.6-10.3 [facility] Comment on above: Performed By: #### T SH3, CBC, CMP #### [address] Chloride [Moles/Vol] 104 mmol/L Normal 98-107 [facility] Comment on above: Performed By: #### T SH3, CBC, CMP #### [place] [address] CO2 [Moles/Vol] 28.2 mmol/L Normal 21.0-31.0 [facility] Comment on above: Performed By: #### T SH3, CBC, CMP #### [address] Creatinine [Mass/Vol] 0.74 mg/dL Normal 0.60-1.20 [facility] Comment on above: Performed By: #### T SH3, CBC, CMP #### [place] [address] [place] GFR/1.73 sq M.predicted MDRD (S/P/Bld) [Vol rate/Area] mL/min/{1.73_m2} Normal [facility] Comment on above: Performed By: #### T SH3, CBC, CMP #### [place] [address] [place] Globulin (S) [Mass/Vol] 1.9 g/dL Normal [facility] Comment on above: Performed By: #### T SH3, CBC, CMP #### [address] Glucose [Mass/Vol] 76 mg/dL Normal 70-100 [facility] Comment on above: Result Comment: [place] Glucose Reference Range is dependent on time and content of last meal. Glucose of more than 200 mg/dL in a nonstressed, ambulatory subject supports the diagnosis of Diabetes Mellitus. ADA recommended reference range Performed By: #### T SH3, CBC, CMP #### [place] [address] [place] Potassium [Moles/Vol] 4.2 mmol/L Normal 3.5-5.1 [facility] Comment on above: Performed By: #### T SH3, CBC, CMP #### [address] Protein [Mass/Vol] 6.9 g/dL Normal 6.4-8.9 [facility] Comment on above: Performed By: #### T SH3, CBC, CMP #### [place] [id number] [place] Sodium [Moles/Vol] 137 mmol/L Normal 136-145 [facility] Comment on above: Performed By: #### T SH3, CBC, CMP #### [facility] [address] Urea nitrogen [Mass/Vol] 11 mg/dL Normal 7-25 [facility] Comment on above: Performed By: #### T SH3, CBC, CMP #### [facility] [address] Creatinine [Mass/volume] in Serum or PlasmaOrdered By: Raquel Alarcon on 04-12-2024 Creatinine [Mass/Vol] Creatinine [Mass/volume] in Serum or Plasma 0.60-1.20 [facility] Eosinophils Auto (Bld) [#/Vo l]Ordered By: Raquel Alarcon on 04-12-2024 Eosinophils (Bld) [#/Vol] Automated eosinophil count 0.0-0.45 [facility] Eosinophils/100 WBC Auto (Bl d)Ordered By: Raquel Alarcon on 04-12-2024 Eosinophils/100 WBC (Bld) Automated eosinophil % . [facility] Erythrocyte distribution wid th Auto (RBC) [Ratio]Ordered By: Raquel Alarcon on 04-12-2024 Erythrocyte distribution width (RBC) [Ratio] Erythrocyte distribution width [Ratio] by Automated count 11.9-15.3 [facility] Globulin Calc (S) [Mass/Vol] Ordered By: Raquel Alarcon on 04-12-2024 Globulin (S) [Mass/Vol] Serum globulin measurement by calculation (mass/volume) [facility] Glucose [Mass/volume] in Ser um or PlasmaOrdered By: Raquel Alarcon on 04-12-2024 Glucose [Mass/Vol] Glucose [Mass/volume] in Serum or Plasma 70-100 [facility] Comment on above: ADA recommended refe rence rangeRandom Glucose Reference Range is dependent on time and content of last meal. Glucose of more than 200 mg/dL in a nonstressed, ambulatory subject supports the diagnosis of Diabetes Mellitus. Hematocrit Auto (Bld) [Volum e fraction]Ordered By: Raquel Alacron on 04-12-2024 Hematocrit (Bld) [Volume fraction] Hematocrit [Volume Fraction] of Blood by Automated count 34.0-46.4 [facility] Hemoglobin [Mass/volume] in BloodOrdered By: Raquel Alarcon on 04-12-2024 Hemoglobin (Bld) [Mass/Vol] Hemoglobin [Mass/volume] in Blood 11.8-15.4 [facility] Leukocytes [#/volume] correc vladimir for nucleated erythrocytes in Blood by Automated counOrdered By: Raquel Alarcon on 04-12-2024 WBC corrected for nucl RBC Auto (Bld) [#/Vol] Leukocytes [#/volume] corrected for nucleated erythrocytes in Blood by Automated coun 3.8-11.6 [facility] Lymphocytes Auto (Bld) [#/Vo l]Ordered By: Raquel Alarcon on 04-12-2024 Lymphocytes (Bld) [#/Vol] Lymphocytes [#/volume] in Blood by Automated count 1.00-4.8 [facility] Lymphocytes/100 WBC Auto (Bl d)Ordered By: Raquel Alarcon on 04-12-2024 Lymphocytes/100 WBC (Bld) Lymphocytes/100 leukocytes in Blood by Automated count . [facility] MCH Auto (RBC) [Entitic mass ]Ordered By: Raquel Alarcon on 04-12-2024 MCH (RBC) [Entitic mass] MCH [Entitic ma ss] by Automated count 24.7-34.3 [facility] MCHC Auto (RBC) [Mass/Vol]Or dered By: Raquel Alarcon on 04-12-2024 MCHC (RBC) [Mass/Vol] MCHC [Mass/volume] by Automated count 32.0-35.0 [facility] MCV Auto (RBC) [Entitic vol] Ordered By: Raquel Alarcon on 04-12-2024 MCV (RBC) [Entitic vol] MCV [Entitic vol ume] by Automated count 80-100 [facility] Monocytes Auto (Bld) [#/Vol] Ordered By: Raquel Alarcon on 04-12-2024 Monocytes (Bld) [#/Vol] Automated blood monocyte count 0.0-0.8 [facility] Monocytes/100 WBC Auto (Bld) Ordered By: Raquel Alarcon on 04-12-2024 Monocytes/100 WBC (Bld) Automated monocyte % . [facility] Neutrophils Auto (Bld) [#/Vo l]Ordered By: Raquel Alarcon on 04-12-2024 Neutrophils (Bld) [#/Vol] Neutrophils [#/volume] in Blood by Automated count 1.8-7.7 [facility] Neutrophils/100 WBC Auto (Bl d)Ordered By: Raquel Alarcon on 04-12-2024 Neutrophils/100 WBC (Bld) Automated neutrophil % . [facility] No Panel InformationOrdered By: Raquel Alarcon on 04-12-2024 Estimated GFR (CKD-EPI) > 60.0 mL/Min [facility] Creatinine Clearance (Chem N/A [facility] Nucleated erythrocytes [Pres ence] in Blood by Automated countOrdered By: Raquel Alarcon on 04-12-2024 Nucleated RBC Auto Ql (Bld) Nucleated erythrocytes [Presence] in Blood by Automated count 0-0.5 [facility] Platelet mean volume Auto (B ld) [Entitic vol]Ordered By: Raquel Alarcon on 04-12-2024 Platelet mean volume (Bld) [Entitic vol] Platelet mean volume [Entitic volume] in Blood by Automated count 6.3-10.7 [facility] Platelets Auto (Bld) [#/Vol] Ordered By: Raquel Alarcon on 04-12-2024 Platelets (Bld) [#/Vol] Platelets [#/vol ume] in Blood by Automated count 150-450 [facility] Potassium [Moles/volume] in Serum or PlasmaOrdered By: Raquel Alarcon on 04-12-2024 Potassium [Moles/Vol] Potassium [Moles/volume] in Serum or Plasma 3.5-5.1 [facility] Protein [Mass/volume] in Ser um or PlasmaOrdered By: Raquel Alarcon on 04-12-2024 Protein [Mass/Vol] Protein [Mass/volume] in Serum or Plasma 6.4-8.9 [facility] RBC Auto (Bld) [#/Vol]Ordere d By: Raquel Alarcon on 04-12-2024 RBC (Bld) [#/Vol] Erythrocytes [#/volume] in Blood by Automated count 3.60-5.00 [facility] Serum or plasma albumin/glob ulin mass ratioOrdered By: Raquel Alarcon on 04-12-2024 Albumin/Globulin [Mass ratio] Serum or plasma albumin/globulin mass ratio [facility] Serum or plasma anion gap de terminationOrdered By: Raquel Alarcon on 04-12-2024 Anion gap [Moles/Vol] Serum or plasma anion gap determination 6.0-15.0 [facility] Sodium [Moles/volume] in Ser um or PlasmaOrdered By: Raquel Alarcon on 04-12-2024 Sodium [Moles/Vol] Sodium [Moles/volume] in Serum or Plasma 136-145 [facility] Thyroid Stimulating Hormoneo n 04-12-2024 TSH Qn 0.54 m[IU]/L Normal 0.45-5.33 [facility] Comment on above: Result Comment: PERF ORMED BY: [place] [address] PATHOLOGIST PAINT SPRAYING MACHINE OPERATOR HELPER DAVID PRETTY M.D. Performed By: #### T SH3, CBC, CMP #### [place] [address] [place] Thyrotropin [Units/volume] i n Serum or PlasmaOrdered By: Raquel Alarcon on 04-12-2024 TSH Qn Thyrotropin [Units/volume] in Serum or Plasma 0.45-5.33 [facility] Urea nitrogen [Mass/volume] in Serum or PlasmaOrdered By: Raquel Alarcon on 04-12-2024 Urea nitrogen [Mass/Vol] Urea nitrogen [Mass/volume] in Serum or Plasma 7-25 [facility] WBC Auto (Bld) [#/Vol]Ordere d By: Raquel Alarcon on 04-12-2024 WBC (Bld) [#/Vol] Leukocytes [#/volume] in Blood by Automated count 3.8-11.6 [facility] CBC AUTO DIFFon 06-01-2022 BASO # 0.0 103/ul Normal 0.0-0.1 [facility] Comment on above: Performed By: #### U ACSIND, UMICRO #### [facility] [address] [place] [address] [address] Melba Lorenzo Basophils/100 WBC (Bld) 0.3 % Normal 0.2-2.0 [facility] Comment on above: Performed By: #### U ACSADRIANA UMICRO #### [facility] [address] [place] [address] Dr. Melba Lorenzo EO # 0.0 103/ul Normal 0.0-0.7 [facility] Comment on above: Performed By: #### U ACSADRIANA UMICRO #### [facility] [address] [place] [address] Dr. Melba Lorenzo Eosinophils/100 WBC (Bld) 0.2 % Critically low 0.9-7.0 [facility] Comment on above: Performed By: #### U ACSADRIANA UMICRO #### [facility] [address] [place] [address] Dr. Melba Lorenzo Erythrocyte distribution width (RBC) [Ratio] 12.1 % Normal 11.0-15.0 [facility] Comment on above: Performed By: #### U TRAVIS ICRO #### [facility] [address] [place] [address] Dr. Melba Lorenzo Hematocrit (Bld) [Volume fraction] 28.0 % Critically low 36.0-48.0 [facility] Comment on above: Performed By: #### U ACSADRIANA ICRO #### [facility] [address] [place] [address] Dr. Melba Lorenzo Hemoglobin (Bld) [Mass/Vol] 9.8 g/dL Critically low 12.0-16.0 [facility] Comment on above: Performed By: #### U ACSADRIANA UMICRO #### [facility] [address] [place] [address] Dr. Melba Lorenzo IG # 0.07 10e3/ul Critically high 0.00-0.03 [facility] Comment on above: Performed By: #### U ACSADRIANA UMICRO #### [facility] [address] [place] [address] Dr. Melba Lorenzo IG % 0.6 % Critically high 0.0-0.5 [facility] Comment on above: Performed By: #### U ACSIND, UMICRO #### [facility] [address] [address] [address] Melba Lorenzo LYMPH # 2.0 103/ul Normal 1.2-3.8 [facility] Comment on above: Performed By: #### U ACSIND, UMICRO #### [facility] [address] [address] [address] Melba Lorenzo Lymphocytes/100 WBC (Bld) 16.6 % Critically low 20.5-60.0 [facility] Comment on above: Performed By: #### U ACSIND, UMICRO #### [facility] [address] [place] [address] Dr. Melba Lorenzo MANUAL DIFF REQ NO Normal [facility] Comment on above: Performed By: #### U ACSIND, UMICRO #### [facility] [address] [place] [address] Dr. Melba Lorenzo MCH (RBC) [Entitic mass] 31.0 pg Normal 26.7-34.0 [facility] Comment on above: Performed By: #### U ACSADRIANA, ICRO #### [facility] [address] [place] [address] Dr. Melba Lorenzo MCHC (RBC) [Mass/Vol] 35.0 g/dL Normal 29.9-35.2 [facility] Comment on above: Performed By: #### U ACSADRIANA, ICRO #### [facility] [address] [place] [address] Dr. Melba Lorenzo MCV (RBC) [Entitic vol] 88.6 fL Normal 81.0-99.0 [facility] Comment on above: Performed By: #### U ACSADRIANA, ICRO #### [facility] [address] [address] [address] Melba Lorenzo MONO # 1.1 103/ul Critically high 0.3-0.8 [facility] Comment on above: Performed By: #### U ACSADRIANA, UMICRO #### [facility] [address] [address] [address] Melba Lorenzo Monocytes/100 WBC (Bld) 8.8 % Normal 1.7-12.0 [facility] Comment on above: Performed By: #### CELI PORTERRO #### [facility] [address] [place] [address] Dr. Melba Lorenzo NEUT # 8.8 103/ul Critically high 1.4-6.5 [facility] Comment on above: Performed By: #### CELI PORTERRO #### [facility] [address] [place] [address] Dr. Melba Lorenzo Neutrophils/100 WBC (Bld) 73.5 % Normal 43.0-75.0 [facility] Comment on above: Performed By: #### NIRMAL PORTERICRO #### [facility] [address] [place] [address] Dr. Melba Lorenzo Platelet mean volume (Bld) [Entitic vol] 9.8 fL Normal 9.5-13.5 [facility] Comment on above: Performed By: #### CELI PORTERRO #### [facility] [address] [place] [address] Dr. Melba Lorenzo PLT 194 103/ul Normal 150-450 [facility] Comment on above: Performed By: #### CELI PORTERRO #### [facility] [address] [place] [address] Dr. Melba Lorenzo RBC 3.16 106/ul Critically low 4.20-5.40 [facility] Comment on above: Performed By: #### CELI PORTERRO #### [facility] [address] [place] [address] Dr. Melba Lorenzo WBC 12.0 103/ul Critically high 4.0-11.0 [facility] Comment on above: Performed By: #### CELI PORTERRO #### [facility] [address] [place] [address] Dr. Melba Lorenzo CBC AUTO DIFFon 05-30-2022 BASO # 0.0 103/ul Normal 0.0-0.1 [facility] Comment on above: Performed By: #### CELI PORTERRO #### [facility] [address] [place] [address] Dr. Melba Lorenzo Basophils/100 WBC (Bld) 0.3 % Normal 0.2-2.0 [facility] Comment on above: Performed By: #### U ACSADRIANA UMICRO #### [facility] [address] [place] [address] Dr. Melba Lorenzo EO # 0.0 103/ul Normal 0.0-0.7 [facility] Comment on above: Performed By: #### U ACSADRIANA UMICRO #### [facility] [address] [place] [address] Dr. Melba Lorenzo Eosinophils/100 WBC (Bld) 0.3 % Critically low 0.9-7.0 [facility] Comment on above: Performed By: #### U ACSADRIANA UMICRO #### [facility] [address] [place] [address] Dr. Melba Lorenzo Erythrocyte distribution width (RBC) [Ratio] 11.9 % Normal 11.0-15.0 [facility] Comment on above: Performed By: #### U TRAVIS ICRO #### [facility] [address] [place] [address] Dr. Melba Lorenzo Hematocrit (Bld) [Volume fraction] 38.1 % Normal 36.0-48.0 [facility] Comment on above: Performed By: #### U ACSADRIANA UMICRO #### [facility] [address] [place] [address] Dr. Melba Lorenzo Hemoglobin (Bld) [Mass/Vol] 13.4 g/dL Normal 12.0-16.0 [facility] Comment on above: Performed By: #### U ACSADRIANA UMICRO #### [facility] [address] [place] [address] Dr. Melba Lorenzo IG # 0.05 10e3/ul Critically high 0.00-0.03 [facility] Comment on above: Performed By: #### U ACSADRIANA UMICRO #### [facility] [address] [place] [address] Dr. Melba Lorenzo IG % 0.5 % Normal 0.0-0.5 [facility] Comment on above: Performed By: #### U CELI ROBLESRO #### [facility] [address] [place] [address] Dr. Melba Lorenzo LYMPH # 2.0 103/ul Normal 1.2-3.8 [facility] Comment on above: Performed By: #### NIRMAL PORTERICRO #### [facility] [address] [place] [address] Dr. Melba Lorenzo Lymphocytes/100 WBC (Bld) 20.1 % Critically low 20.5-60.0 [facility] Comment on above: Performed By: #### Dheeraj ROBLES ICRO #### [facility] [address] [place] [address] Dr. Melba Lorenzo MANUAL DIFF REQ NO Normal [facility] Comment on above: Performed By: #### Dheeraj ROBLES ICRO #### [facility] [address] [place] [address] Dr. Melba Lorenzo MCH (RBC) [Entitic mass] 30.7 pg Normal 26.7-34.0 [facility] Comment on above: Performed By: #### Dheeraj ROBLES ICRO #### [facility] [address] [place] [address] Dr. Melba Lorenzo MCHC (RBC) [Mass/Vol] 35.2 g/dL Normal 29.9-35.2 [facility] Comment on above: Performed By: #### Dheeraj ROBLES ICRO #### [facility] [address] [place] [address] Dr. Melba Lorenzo MCV (RBC) [Entitic vol] 87.4 fL Normal 81.0-99.0 [facility] Comment on above: Performed By: #### Dheeraj ROBLES UMICRO #### [facility] [address] [place] [address] Dr. Melba Lorenzo MONO # 0.8 103/ul Normal 0.3-0.8 [facility] Comment on above: Performed By: #### U CELI ROBLESRO #### [facility] [address] [address] [address] Melba Lorenzo Monocytes/100 WBC (Bld) 7.8 % Normal 1.7-12.0 [facility] Comment on above: Performed By: #### U ACSADRIANA, UMICRO #### [facility] [address] [place] [address] Dr. Melba Lorenzo NEUT # 6.9 103/ul Critically high 1.4-6.5 [facility] Comment on above: Performed By: #### U ACSADRIANA, UMICRO #### [facility] [address] [place] [address] Dr. Melba Lorenzo Neutrophils/100 WBC (Bld) 71.0 % Normal 43.0-75.0 [facility] Comment on above: Performed By: #### U ACSADRIANA UMICRO #### [facility] [address] [place] [address] Dr. Melba Lorenzo Platelet mean volume (Bld) [Entitic vol] 9.9 fL Normal 9.5-13.5 [facility] Comment on above: Performed By: #### U ACSADRIANA UMICRO #### [facility] [address] [place] [address] Dr. Melba Lorenzo PLT 269 103/ul Normal 150-450 [facility] Comment on above: Performed By: #### U ACSADRIANA, UMICRO #### [facility] [address] [place] [address] Dr. Melba Lorenzo RBC 4.36 106/ul Normal 4.20-5.40 [facility] Comment on above: Performed By: #### U ACSADRIANA, UMICRO #### [facility] [address] [place] [address] Dr. Melba Lorenzo WBC 9.7 103/ul Normal 4.0-11.0 [facility] Comment on above: Performed By: #### U ACSADRIANA, UMICRO #### [facility] [address] [place] [address] Dr. Melba Lorenzo Covid-19 PCR (CVDTBH)on 12-2 5-2022 SARS-CoV-2 (COVID-19) RNA VEENA+probe Ql (Unsp spec) Not detected Normal NOT DETECTED [facility] Comment on above: Result Comment: When diagnostic [...] for this test is supported by the [place] [employer] and [employer] Service's declaration that [...] longer be used). Performed By: #### U ACSIND, UMCHAPARRORO #### [facility] [address] [place] [address] Dr. Melba Lorenzo DRUG SCREEN RAPID (URINE)on 05-30-2022 AMP Negative Normal NEGATIVE [facility] Comment on above: Performed By: #### N BOX #### [facility] [address] [place] [address] Dr. Melba Lorenzo BAR Negative Normal NEGATIVE [facility] Comment on above: Performed By: #### N BOX #### [facility] [address] [address] [address] Melba Lorenzo BUP Negative Normal NEGATIVE [facility] Comment on above: Performed By: #### N BOX #### [facility] [address] [address] [address] Melba Lorenzo BZO Negative Normal NEGATIVE [facility] Comment on above: Performed By: #### N BOX #### [facility] [address] [address] [address] Melba Lorenzo PRANEETH Negative Normal NEGATIVE [facility] Comment on above: Performed By: #### N BOX #### [facility] [address] [place] [address] Dr. Melba Lorenzo CUT-OFFS SEE BELOW Normal [facility] Comment on above: Result Comment: AMP (Amphetamine): 500ng/mL, BAR (Barbituates): 200 ng/mL, BZO (Benzodiazepines): 150 ng/mL, BUP (Buprenorphine): 10 ng/mL, PRANEETH (Cocaine): 150 ng/mL, mAMP (Methamphetamine): 500 ng/mL, MTD (Methadone): 200 ng/mL, OPI (Opiates): 100 ng/mL, OXY (Oxycodone): 100 ng/mL, PCP (Phencyclidine): 25 ng/mL, PPX (Propoxyphene): 300 ng/mL, THC (Cannabinoids): 50 ng/mL, TCA (Trycyclic Antidepressants): 300 ng/mL Performed By: #### N BOX #### [facility] [address] [place] [address] Dr. Melba Lorenzo DRUG CUT HEADER DRUG CLASS TEST SYSTEM CUT-OFF CONCENTRATIONS ARE FOLLOWS: Normal [facility] Comment on above: Performed By: #### N BOX #### [facility] [address] [place] [address] Dr. Melba Lorenzo mAMP Negative Normal NEGATIVE [facility] Comment on above: Performed By: #### N BOX #### [facility] [address] [place] [address] Dr. Melba Lorenzo MTD Negative Normal NEGATIVE [facility] Comment on above: Performed By: #### N BOX #### [facility] [address] [place] [address] Dr. Melba Lorenzo OPI Negative Normal NEGATIVE [facility] Comment on above: Performed By: #### N BOX #### [facility] [address] [address] [address] Melba Lorenzo OXY Negative Normal NEGATIVE [facility] Comment on above: Performed By: #### N BOX #### [facility] [address] [place] [address] Dr. Melba Lorenzo PCP Negative Normal NEGATIVE [facility] Comment on above: Performed By: #### N BOX #### [facility] [address] [address] [address] Melba Lorenzo PPX Negative Normal NEGATIVE [facility] Comment on above: Performed By: #### N BOX #### [facility] [address] [address] [address] Melba Lorenzo TCA Negative Normal NEGATIVE [facility] Comment on above: Performed By: #### N BOX #### [facility] [address] [address] [address] Melba Lorenzo THC Negative Normal NEGATIVE [facility] Comment on above: Performed By: #### N BOX #### [facility] [address] [place] [address] Dr. Melba Lorenzo TYPE AND SCREENon 05-30-2022 TYPE AND SCREEN Negative Normal [facility] Comment on above: Performed By: #### U ACSIND, UMICRO #### [facility] [address] [place] [address] Dr. Melba Lorenzo UA (CLEAN/CATCH) ANNUAL GIVING OFFICER/MICRO I F IND.on 05-22-2022 Bilirubin Ql (U) Negative Normal NEGATIVE [facility] Comment on above: Performed By: #### U ACSIND, UMICRO #### [facility] [address] [place] [address] Dr. Melba Lorenzo Clarity (U) SL CLOUDY Abnormal CLEAR [facility] Comment on above: Performed By: #### U ACSIND, UMICRO #### [facility] [address] [place] [address] Dr. Melba Lorenzo Color (U) LT. YELLOW Normal YELLOW [facility] Comment on above: Performed By: #### U ACSIND, UMICRO #### [facility] [address] [place] [address] Dr. Melba Lorenzo Glucose Ql (U) Negative Normal NEGATIVE [facility] Comment on above: Performed By: #### U ACSIND, UMICRO #### [facility] [address] [place] [address] Dr. Melba Lorenzo Hemoglobin Ql (U) Negative Normal NEGATIVE [facility] Comment on above: Performed By: #### U ACSIND, UMICRO #### [facility] [address] [address] [address] Melba Lorenzo Ketones Ql (U) Negative Normal NEGATIVE [facility] Comment on above: Performed By: #### U ACSADRIANA, UMICRO #### [facility] [address] [address] [address] Melba Lorenzo LEUKOCYTES LARGE Abnormal NEGATIVE [facility] Comment on above: Performed By: #### U ACSADRIANA UMICRO #### [facility] [address] [address] [address] Melba Lorenzo Nitrite Ql (U) Negative Normal NEGATIVE [facility] Comment on above: Performed By: #### U ACSADRIANA UMICRO #### [facility] [address] [place] [address] Dr. Melba Lorenzo pH (U) 6.5 [pH] Normal 5-9 [facility] Comment on above: Performed By: #### U ACSADRIANA ICRO #### [facility] [address] [place] [address] Dr. Melba Lorenzo SPEC GRAVITY 1.010 Normal 1.005-<=1.025 [facility] Comment on above: Performed By: #### U ACSADRIANA ICRO #### [facility] [address] [place] [address] Dr. Melba Lorenzo UA PROTEIN Negative Normal NEGATIVE/ TRACE [facility] Comment on above: Performed By: #### U ACSADRIANA UMICRO #### [facility] [address] [place] [address] Dr. Melba Lorenzo UR MICRO IND INDICATED Normal [facility] Comment on above: Performed By: #### U ACSADRIANA UMICRO #### [facility] [address] [address] [address] Melba Lorenzo Urobilinogen Qn (U) 0.2 {Maria G'U}/dL Normal 0.2 - 1. 0 [facility] Comment on above: Performed By: #### U ACSADRIANA, UMICRO #### [facility] [address] [place] [address] Dr. Melba Lorenzo URINE MICROSCOPIC ONLYon BACTERIA NONE SEEN Normal NONE SEEN [facility] Comment on above: Performed By: #### U ACSIND, UMICRO #### [facility] [address] [place] [address] Dr. Melba Lorenzo Bacteria identified Cx Nom (U) NOT INDICATED Normal [facility] Comment on above: Performed By: #### U ACSIND, UMICRO #### [facility] [address] [place] [address] Dr. Melba Lorenzo CAST NONE SEEN Normal NONE SEEN [facility] Comment on above: Performed By: #### U ACSIND, UMICRO #### [facility] [address] [place] [address] Dr. Melba Lorenzo Crystals LM Nom (Urine sed) NONE SEEN Normal NONE SEEN [facility] Comment on above: Performed By: #### U ACSIND, UMICRO #### [facility] [address] [place] [address] Dr. Melba Lorenzo Epithelial cells LM Ql (Urine sed) MODERATE Abnormal NONE SEEN /RARE [facility] Comment on above: Performed By: #### U ACSIND, UMICRO #### [facility] [address] [place] [address] Dr. Melba Lorenzo MUCOUS NONE SEEN Normal NONE SEEN [facility] Comment on above: Performed By: #### U ACSIND, UMICRO #### [facility] [address] [place] [address] Dr. Melba Lorenzo RBC NONE SEEN Abnormal 0-2 [facility] Comment on above: Performed By: #### U ACSIND, UMICRO #### [facility] [address] [place] [address] Dr. Melba Lorenzo WBC 2-5 Abnormal NONE SEEN [facility] Comment on above: Performed By: #### U ACSIND, UMICRO #### [facility] [address] [place] [address] Dr. Melba Lorenzo GROUP B STREP CULTUREon S. agalactiae Ag Ql (Unsp spec) Culture Observations: NEGATIVE FOR GROUP B STREPTOCOCCUS. Normal [facility] Comment on above: Performed By: #### U CELI ROBLESRO #### [facility] [address] [address] [address] Melba Lorenzo PREG GROWTHon 03-28-2022 US PREG GROWTH EXAMINATION: [...] BRI EDWARDS Date: 2022-03-28 16:11 Normal [facility] GLUCOSE - 1HRon 02-23-2022 Glucose [Mass/Vol] 115 mg/dL Critically high 74-106 T [facility] Comment on above: Performed By: #### U HIRO ROBLES #### [facility] [address] [address] [address] Melba Lorenzo HEMOGRAM AND PLATELon 2021 Hematocrit (Bld) [Volume fraction] 33.6 % Critically low 36.0-48.0 [facility] Comment on above: Performed By: #### N BOX #### [facility] [address] [address] [address] Melba Lorenzo Hemoglobin (Bld) [Mass/Vol] 11.6 g/dL Critically low 12.0-16.0 [facility] Comment on above: Performed By: #### N BOX #### [facility] [address] [address] [address] Melba Lorenzo MCH (RBC) [Entitic mass] 31.6 pg Normal 26.7-34.0 [facility] Comment on above: Performed By: #### N BOX #### [facility] [address] [address] [address] Melba Lorenzo MCHC (RBC) [Mass/Vol] 34.5 g/dL Normal 29.9-35.2 [facility] Comment on above: Performed By: #### N BOX #### [facility] [address] [address] [address] Melba Lorenzo MCV (RBC) [Entitic vol] 91.6 fL Normal 81.0-99.0 [facility] Comment on above: Performed By: #### N BOX #### [facility] [address] [address] [address] Melba Lorenzo PLT 236 103/ul Normal 150-450 [facility] Comment on above: Performed By: #### N BOX #### [facility] [address] [address] [address] Melba Lorenzo RBC 3.67 106/ul Critically low 4.20-5.40 [facility] Comment on above: Performed By: #### N BOX #### [facility] [address] [place] [address] Dr. Melba Lorenzo WBC 7.4 103/ul Normal 4.0-11.0 [facility] Comment on above: Performed By: #### N BOX #### [facility] [address] [address] [address] Melba Lorenzo CULTURE URINEon 02-01-2022 CULTURE URINE Culture Observations: LIGHT GROWTH OF MIXED GENITAL [place]. NO POTENTIAL PATHOGENS SEEN. Normal [facility] Comment on above: Performed By: #### U RCX #### [facility] [address] [place] [address] Dr. Melba Lorenzo UA (CLEAN/CATCH) ANNUAL GIVING OFFICER/MICRO I F IND.on 02-01-2022 Bilirubin Ql (U) Negative Normal NEGATIVE [facility] Comment on above: Performed By: #### U MICRO, UACSIND #### [facility] [address] [address] [address] Melba Lorenzo Clarity (U) CLEAR Normal CLEAR [facility] Comment on above: Performed By: #### U MICRO, UACSIND #### [facility] [address] [address] [address] Melba Lorenzo Color (U) YELLOW Normal YELLOW [facility] Comment on above: Performed By: #### U MICRO, UACSIND #### [facility] [address] [address] [address] Melba Lorenzo Glucose Ql (U) Negative Normal NEGATIVE [facility] Comment on above: Performed By: #### U MICRO, UACSIND #### [facility] [address] [place] [address] Dr. Melba Lorenzo Hemoglobin Ql (U) Negative Normal NEGATIVE [facility] Comment on above: Performed By: #### U MICRO, UACSIND #### [facility] [address] [address] [address] Melba Lorenzo Ketones Ql (U) Negative Normal NEGATIVE [facility] Comment on above: Performed By: #### U MICRO, UACSIND #### [facility] [address] [address] [address] Melba Lorenzo LEUKOCYTES LARGE Abnormal NEGATIVE [facility] Comment on above: Performed By: #### U MICRO, UACSIND #### [facility] [address] [address] [address] Melba Lorenzo Nitrite Ql (U) Negative Normal NEGATIVE [facility] Comment on above: Performed By: #### U MICRO, UACSIND #### [facility] [address] [address] [address] Melba Lorenzo pH (U) 6.0 [pH] Normal 5-9 [facility] Comment on above: Performed By: #### U MICRO, UACSIND #### [facility] [address] [address] [address] Melba Lorenzo SPEC GRAVITY 1.010 Normal 1.005-<=1.025 [facility] Comment on above: Performed By: #### U MICRO, UACSIND #### [facility] [address] [place] [address] Dr. Melba Lorenzo UA PROTEIN Negative Normal NEGATIVE/ TRACE [facility] Comment on above: Performed By: #### U MICRO, UACSIND #### [facility] [address] [place] [address] Dr. Melba Lorenzo UR MICRO IND INDICATED Normal [facility] Comment on above: Performed By: #### U MICRO, UACSIND #### [facility] [address] [place] [address] Dr. Melba Lorenzo Urobilinogen Qn (U) 0.2 {Maria G'U}/dL Normal 0.2 - 1. 0 [facility] Comment on above: Performed By: #### U MICRO, UACSIND #### [facility] [address] [place] [address] Dr. Melba Lorenzo URINE MICROSCOPIC ONLYon BACTERIA SMALL Abnormal NONE SEEN [facility] Comment on above: Performed By: #### U MICRO, UACSIND #### [facility] [address] [place] [address] Dr. Melba Lorenzo Bacteria identified Cx Nom (U) INDICATED Normal [facility] Comment on above: Performed By: #### U MICRO, UACSIND #### [facility] [address] [place] [address] Dr. Melba Lorenzo CAST NONE SEEN Normal NONE SEEN [facility] Comment on above: Performed By: #### U MICRO, UACSIND #### [facility] [address] [place] [address] Dr. Melba Lorenzo Crystals LM Nom (Urine sed) NONE SEEN Normal NONE SEEN [facility] Comment on above: Performed By: #### U MICRO, UACSIND #### [facility] [address] [place] [address] Dr. Melba Lorenzo Epithelial cells LM Ql (Urine sed) RARE Normal NONE SEEN /RARE [facility] Comment on above: Performed By: #### U MICRO, UACSIND #### [facility] [address] [address] [address] Melba Lorenzo MUCOUS NONE SEEN Normal NONE SEEN [facility] Comment on above: Performed By: #### U MICRO, UACSIND #### [facility] [address] [address] [address] Melba Lorenzo RBC 0-2 Normal 0-2 [facility] Comment on above: Performed By: #### U MICRO, UACSIND #### [facility] [address] [address] [address] Melba Lorenzo WBC 5-10 Abnormal NONE SEEN [facility] Comment on above: Performed By: #### U MICRO, UACSIND #### [facility] [address] [address] [address] Melba Lorenzo AFP MATERNAL FOR SPINA BIFID Aon 01-26-2022 AFP MoM 1.04 Normal [facility] Comment on above: Performed By: #### A FPMAT #### [facility] [address] [address] [address] Melba Lorenzo AFP Value 71.4 ng/mL Normal [facility] Comment on above: Performed By: #### A FPMAT #### [facility] [address] [address] [address] Melba Lorenzo AFP, Serum for Spina Bifida Report Normal [facility] Comment on above: Performed By: #### A FPMAT #### [facility] [address] [address] [address] Melba Lorenzo Comment Comment Normal [facility] Comment on above: Result Comment: Tyree Harmon, Ph.D., [facility] Director . References: Available Upon Request. . Multiples Of Median Cutoffs For AFP Elevations Torre 2.5 Black 2.8 IDD 2.0 Twins 4.5 Abbreviation Definitions IDD - Insulin Dep Diabetes OSBR - Open Spina Bifida Risk . For further inquiries contact [facility] at [phone]. . This test was developed and its performance characteristics determined by [facility]. It has not been cleared or approved by the Food and Drug Administration. Performed By: #### A FPMAT #### [facility] [address] [address] [address] Melba Lorenzo Gest Age Collection Date 20.6 weeks Normal [facility] Comment on above: Performed By: #### A FPMAT #### [facility] [address] [address] [address] Melba Lorenzo Gestat, Age Based on KIANNA Normal [facility] Comment on above: Result Comment: 05/08 Recalculations are not recommended when gestational dating by LMP and ultrasound are within 10 days. Performed By: #### A FPMAT #### [facility] [address] [address] [address] Melba Lorenzo Insulin Dep Diabetes No Normal [facility] Comment on above: Performed By: #### A FPMAT #### [facility] [address] [place] [address] Dr. Melba Lorenzo Interpretation Comment Normal [facility] Comment on above: Result Comment: Inte [...] Customer Services to discuss available options. The [employer] recommends amniocentesis be offered to women age 35 and older. Performed By: #### A FPMAT #### [facility] [address] [address] [address] Melba Lorenzo [age] Normal [facility] Comment on above: Performed By: #### A FPMAT #### [facility] [address] [address] [address] Melba Lorenzo Multiple Gestation No Normal [facility] Comment on above: Performed By: #### A FPMAT #### [facility] [address] [address] [address] Mel[place] Lorenzo [place] [id number] Normal [facility] Comment on above: Performed By: #### A FPMAT #### [facility] [address] [address] [address] Melba Lorenzo PDF . Normal [facility] Comment on above: Performed By: #### A FPMAT #### [facility] [address] [address] [address] Melba Lorenzo Race Normal [facility] Comment on above: Performed By: #### A FPMAT #### [facility] [address] [address] [address] Melba Lorenzo Test Results: Negative [facility] Comment on above: Performed By: #### A FPMAT #### [facility] [address] [address] [address] Melba Lorenzo US PREG ANATOMY SINGLEon US PREG ANATOMY SINGLE EXAMINATION: US P REG ANATOMY SINGLE HISTORY: screening COMPARISON: Ultrasound transvaginal [...] by: JENNIFER BURCH Date: 2022-01-19 21:20 Normal [facility] CHLAMYDIA/GONOCOCCUS VEENA (SW AB/URINE/PAPon 12-17-2021 Chlamydia trachomatis, VEENA Negative Normal Negative [facility] Comment on above: Performed By: #### N BOX #### [facility] [address] [place] [address] Dr. Melba Lorenzo Neisseria gonorrhoeae, VEENA Negative Normal Negative [facility] Comment on above: Performed By: #### N BOX #### [facility] [address] [place] [address] Dr. Melba Lorenzo PAP ACOG PANEL 2: 21 to on 12-17-2021 . . Normal [facility] Comment on above: Performed By: #### U CELI ROBLESRO #### [facility] [address] [place] [address] Dr. Melba Lorenzo Age Gdln ACOG Testing - Normal [facility] Comment on above: Performed By: #### U TRAVIS, UMICRO #### [facility] [address] [place] [address] Dr. Melba Lorenzo DIAGNOSIS: Comment Normal [facility] Comment on above: Result Comment: NEGA TIVE FOR INTRAEPITHELIAL LESION OR MALIGNANCY. FUNGAL ORGANISMS MORPHOLOGICALLY CONSISTENT WITH SELENE SPECIES ARE PRESENT. Performed By: #### U TRAVIS UMICRO #### [facility] [address] [place] [address] Dr. Melba Lorenzo Methodology: Comment Normal [facility] Comment on above: Result Comment: This liquid based ThinPrep(R) pap test was screened with the use of an image guided system. Performed By: #### U ACSADRIANA UMICRO #### [facility] [address] [place] [address] Dr. Melba Lorenzo Note: Comment Normal [facility] Comment on above: Result Comment: The Pap smear is a screening test designed to aid in the detection of premalignant and malignant conditions of the uterine cervix. It is not a diagnostic procedure and should not be used as the sole means of detecting cervical cancer. Both false-positive and false-negative reports do occur. . Performed By: #### U ACSADRIANA UMICRO #### [facility] [address] [place] [address] Dr. Melba Lorenzo Performed by: Comment Normal [facility] Comment on above: Result Comment: Kitty Potter Physician Non Invasive Cardiologist (ASCP) Performed By: #### U ACSADRIANA, UMICRO #### [facility] [address] [place] [address] Dr. Melba Lorenzo Reflex Criteria: Comment Normal [facility] Comment on above: Result Comment: The HPV DNA reflex criteria were not met with this specimen result therefore, no HPV testing was performed. . Performed By: #### U ACSADRIANA, UMICRO #### [facility] [address] [place] [address] Dr. Melba Lorenzo Specimen adequacy: Comment Normal [facility] Comment on above: Result Comment: Sati sfactory for evaluation. No endocervical component is identified. Performed By: #### U ACSADRIANA UMICRO #### [facility] [address] [place] [address] Dr. Melba Lorenzo VAGINITIS/VAGINOSIS DNA PROB Rambo 12-16-2021 Selene species Positive Abnormal Negative [facility] Comment on above: Performed By: #### U ACSADRIANA UMICRO #### [facility] [address] [place] [address] Dr. Melba Lorenzo Gardnerella vaginalis Positive Abnormal Negative [facility] Comment on above: Performed By: #### U ACSADRIANA UMICRO #### [facility] [address] [place] [address] Dr. Melba Lorenzo Trichomonas vaginalis Negative Normal Negative [facility] Comment on above: Performed By: #### U ACSADRIANA, UMICRO #### [facility] [address] [place] [address] Dr. Melba Lorenzo HEP B SURFACE ANTIGEN SCREEN on 11-19-2021 HBsAg Screen Negative Normal Negative [facility] Comment on above: Performed By: #### U ACSADRIANA, UMICRO #### [facility] [address] [address] [address] Melba Lorenzo HEPATITIS C VIRUS AB W/ REFL EX QUANTon 11-19-2021 HCV AB <0.1 Normal 0.0-0.9 [facility] Comment on above: Performed By: #### U ACSADRIANA, ICRO #### [facility] [address] [address] [address] Melba Lorenzo Interpretation: Comment Normal [facility] Comment on above: Result Comment: Nega tive Not infected with HCV, unless recent infection is suspected or other evidence exists to indicate HCV infection. Performed By: #### U ACSADRIANA ICRO #### [facility] [address] [place] [address] Dr. Melba Lorenzo HIV 1 AND 2 WITH REFLEXon HIV Screen 4th Generation wRfx Non-Reactive Normal Non Reactive [facility] Comment on above: Result Comment: HIV Negative HIV-1/HIV-2 antibodies and HIV-1 p24 antigen were NOT detected. There is no laboratory evidence of HIV infection. Performed By: #### H IV12 #### [facility] [address] [place] [address] Dr. Melba Lorenzo RPR QUANTon 11-19-2021 Rapid Plasma Reagin, Quant Non-Reactive Normal NonRea<1:1 [facility] Comment on above: Result Comment: Plea se Note: This test does not meet current guidelines for screening and diagnosis of syphilis. This test is intended for following treatment response in patients being treated for syphilis infection. To screen for syphilis infection, a reflex cascade that includes both RPR and a treponema-specific assay should be utilized, such as Treponema pallidum (Syphilis) Screening [place] (278893) or Rapid Plasma Reagin (RPR) Test With Reflex to Quantitative RPR and Confirmatory Treponema pallidum Antibodies (950704). Performed By: #### U ACSIND, UMICRO #### [facility] [address] [address] [address] Melba Lorenzo RUBELLA AB IGGon 11-19-2021 Rubella Antibodies, IgG 3.84 index Normal Immune >0.99 [facility] Comment on above: Result Comment: Non- immune <0.90 Equivocal 0.90 - 0.99 Immune >0.99 Performed By: #### R UBIGG #### [facility] [address] [place] [address] Dr. Melba Lorenzo CBC AUTO DIFFon 11-18-2021 BASO # 0.0 103/ul Normal 0.0-0.1 [facility] Comment on above: Performed By: #### U ACSADRIANA, UMICRO #### [facility] [address] [place] [address] Dr. Melba Lorenzo Basophils/100 WBC (Bld) 0.4 % Normal 0.2-2.0 [facility] Comment on above: Performed By: #### U ACSADRIANA UMICRO #### [facility] [address] [place] [address] Dr. Melba Lorenzo EO # 0.1 103/ul Normal 0.0-0.7 [facility] Comment on above: Performed By: #### U ACSADRIANA, ICRO #### [facility] [address] [place] [address] Dr. Melba Lorenzo Eosinophils/100 WBC (Bld) 0.9 % Normal 0.9-7.0 [facility] Comment on above: Performed By: #### U ACSADRIANA, UMICRO #### [facility] [address] [place] [address] Dr. Melba Lorenzo Erythrocyte distribution width (RBC) [Ratio] 12.3 % Normal 11.0-15.0 [facility] Comment on above: Performed By: #### U ACSADRIANA, ICRO #### [facility] [address] [place] [address] Dr. Melba Lorenzo Hematocrit (Bld) [Volume fraction] 36.8 % Normal 36.0-48.0 [facility] Comment on above: Performed By: #### U ACSIND, UMICRO #### [facility] [address] [place] [address] Dr. Melba Lorenzo Hemoglobin (Bld) [Mass/Vol] 12.8 g/dL Normal 12.0-16.0 [facility] Comment on above: Performed By: #### U NIRMAL ROBLESICRO #### [facility] [address] [place] [address] Dr. Melba Lorenzo IG # 0.03 10e3/ul Normal 0.00-0.03 [facility] Comment on above: Performed By: #### U TRAVIS UMICRO #### [facility] [address] [place] [address] Dr. Melba Lorenzo IG % 0.4 % Normal 0.0-0.5 [facility] Comment on above: Performed By: #### U TRAVIS UMICRO #### [facility] [address] [place] [address] Dr. Melba Lorenzo LYMPH # 1.8 103/ul Normal 1.2-3.8 [facility] Comment on above: Performed By: #### NIRMAL PORTERICRO #### [facility] [address] [place] [address] Dr. Melba Lorenzo Lymphocytes/100 WBC (Bld) 24.2 % Normal 20.5-60.0 [facility] Comment on above: Performed By: #### NIRMAL PORTERICRO #### [facility] [address] [place] [address] Dr. Melba Lorenzo MANUAL DIFF REQ NO Normal [facility] Comment on above: Performed By: #### Dheeraj ROBLES UMICRO #### [facility] [address] [place] [address] Dr. Melba Lorenzo MCH (RBC) [Entitic mass] 30.8 pg Normal 26.7-34.0 [facility] Comment on above: Performed By: #### U TRAVIS UMICRO #### [facility] [address] [place] [address] Dr. Melba Lorenzo MCHC (RBC) [Mass/Vol] 34.8 g/dL Normal 29.9-35.2 [facility] Comment on above: Performed By: #### U TRAVIS UMICRO #### [facility] [address] [address] [address] Melba Lorenzo MCV (RBC) [Entitic vol] 88.5 fL Normal 81.0-99.0 [facility] Comment on above: Performed By: #### U ACSADRIANA UMICRO #### [facility] [address] [address] [address] Melba Lorenzo MONO # 0.5 103/ul Normal 0.3-0.8 [facility] Comment on above: Performed By: #### U ACSADRIANA, UMICRO #### [facility] [address] [address] [address] Melba Lorenzo Monocytes/100 WBC (Bld) 6.1 % Normal 1.7-12.0 [facility] Comment on above: Performed By: #### U ACSADRIANA UMICRO #### [facility] [address] [place] [address] Dr. Melba Lorenzo NEUT # 5.1 103/ul Normal 1.4-6.5 [facility] Comment on above: Performed By: #### U ACSADRIANA ICRO #### [facility] [address] [place] [address] Dr. Melba Lorenzo Neutrophils/100 WBC (Bld) 68.0 % Normal 43.0-75.0 [facility] Comment on above: Performed By: #### U ACSADRIANA UMICRO #### [facility] [address] [address] [address] Mebla Lorenzo Platelet mean volume (Bld) [Entitic vol] 9.3 fL Critically low 9.5-13.5 [facility] Comment on above: Performed By: #### U ACSADRIANA, ICRO #### [facility] [address] [address] [address] Melba Lorenzo PLT 252 103/ul Normal 150-450 [facility] Comment on above: Performed By: #### U ACSADRIANA, UMICRO #### [facility] [address] [address] [address] Melba Lorenzo RBC 4.16 106/ul Critically low 4.20-5.40 [facility] Comment on above: Performed By: #### U ACSIND, UMICRO #### [facility] [address] [address] [address] Melba Lorenzo WBC 7.5 103/ul Normal 4.0-11.0 [facility] Comment on above: Performed By: #### U ACSIND, UMICRO #### [facility] [address] [address] [address] Melba Lorenzo CULTURE URINEon 11-18-2021 CULTURE URINE Culture Observations: LIGHT GROWTH OF MIXED GENITAL [place]. NO POTENTIAL PATHOGENS SEEN. Normal [facility] Comment on above: Performed By: #### U RCX #### [facility] [address] [place] [address] Dr. Melba Lorenzo GLYCOHEMOGLOBIN A1Con 2021 ADA RECOMMENDATION SEE BELOW Normal [facility] Comment on above: Result Comment: ADA RECOMMENDED LIMIT 4.0 - 6.0 ADA THERAPEUTIC TARGET < 7.0 ACTION SUGGESTED > 7.0 Performed By: #### U ACSIND, UMICRO #### [facility] [address] [place] [address] Dr. Melba Lorenzo Glucose [Mass/Vol] 103 mg/dL Normal [facility] Comment on above: Performed By: #### U ACSADRIANA, UMICRO #### [facility] [address] [place] [address] Dr. Melba Lorenzo HbA1c (Bld) [Mass fraction] 5.2 % Normal 4.5-6.2 [facility] Comment on above: Performed By: #### U ACSIND, UMICRO #### [facility] [address] [place] [address] Dr. Melba Lorenzo JASWANT BOX TEST PT SEND OUTo n 11-18-2021 SENT TO REF LAB 11/18/2021 Normal [facility] Comment on above: Performed By: #### N BOX #### [facility] [address] [place] [address] Dr. Melba Lorenzo TYPE AND SCREENon 11-18-2021 TYPE AND SCREEN Negative Normal [facility] Comment on above: Performed By: #### U ACSIND, HIRO #### [facility] [address] [place] [address] Dr. Melba Lorenzo US PREG TVon 10-23-2021 [...] JENNIFER BURCH Date: 2021-10-23 16:51 Normal [facility] Coding Summary.on 02-28-2021 Coding Summary. CD:[id number] Gh0bWw+PGhlYWQ+PE1FV KFfA55cmSYugD6WT8kYE J1WHRTRTBGHHB3XFB5zn QH4UInsD7YynuIz AdmsoMPsYP76GCo7IXY8 xStrFKcgtA8mpNLtX0i8 WnScUZ57nI63RHycBPIw IkE2TeGqxyksaPYh D9jhIdVlvFXaHak+PHRh YmxlIHdpZHRoPScxMDAl KfXqfHfyFQ3bFf5fXCQo LWNvbGxhcHNlOiBj h5uqIXOcOVktBQ4zvTee G7NbhUS6XKMhz1l8Pq86 dHI+RXTaKAP4yOegYWmq k941JmMkg2dzZFJ6 lOHwSRvgMHV7T89vj0Y4 OTLjWFQyXBW4nHN9nH6r kBsdnfceX4QaaCExHtE1 NGK4oESbiZ0kiBtt isroaB4oQop+W59TRT5E NPNLQP7GTty5Y6NmPxqm dHI+PC52CUWsVF50uWKw iYCsi7ynpSa8WbLg FIZnGND5aPsuARrpd7So BNDdG00roEUtj4F5SZGz cPdamYBvJcUluWR0vN3u NKcdtrlny8cefvyu Gefsj4gkzs94kO94Q14n DChmZQNcRAV5UGRsQKFp kYtruo7tsQ4qQc8+IDxj o7ont7nhpEx2AaOa ZDFvatPuoKyxQWN3n5Py Wk99G4VncBzqy0EfRgz6 li61iYDzu4E9eLT0VHym BWDpnB6lMWbkKlY9 VESqNaVgnL88kPDkELpg Tc8dhXdxuKagGV4sOTGm xoumICVpmS4dAAEvlWHf dPbsCQ5uGXKtqfdm p602KkPjEHE8BCVkfDAu Q1YwlZ4fHaWuYWUyXISv C7VyxNVmANmxZ114VVmj KvI5VEPctbOrT5Ha UNUbkYjdIsV0i3M7Ms8A y3ZwlqdmPRS7VRpsKQC7 LqF4UvBtGxY8D9GvXbn7 MSNzlWksVN1eB9Ut BTLrecrhqmlfxXV3QWNr IHAxaG68vRSsMXjjJm9w f2E7g803AAGqJYAekS72 Wg0tfNkjXYAzlEMR oR5bburku1kgegmvWuBk MHZxHDa2WGl5JEBmnMmv GeJkKUQ8RhU9AXF1lWBc tL9mgErvhwarkT9m Oyc+Y74cuU8eXGF3DOP7 lvbxLVEpldRzNT51XL33 U9ZdElykiOJgqZY+PGRp xfKplDotAE8lMyFe c7hph3ZkJGhdG5LrPTYj OFaiVoy3MYGlPJB4mYI3 zT3zMSCaUEawg8C6fCX7 D3MhxqGbnt2tm1lf QQIcQBblD67ogASvf5O0 MLOrfYV6XQLjkTuqTqSd nM06Tdj+PTWxrUxgb5Ys Xarin4qhk2tyeIh0 IjMwJSIgdmFsaWduPSJ0 t1OxQt98Y09yRCcnCWWo XXDhSWBrUQLrrLaxbd5b iI1mDg4+PGNvbCB3 qFJ8xN2iJGWbCpO3LXai O150OyRmlPHsJcelm5ey p2exmLm9FrPlLBUtrpZd zFfrJCA6q6NtIt42 D25gWYhaLNKwLTKtVXSh SFWrcZedrk4tnK0nMp3+ AN2ba3vpme80cT14tIG+ CUWrDIK7mQddRJqf OWVcaT6lXHijXjA0TYLu BkYefA17sDYyHGpfHy5v hHjepVgeEL2fNGGefmvs b588MxNka2ohRTDz xTDnBXsmGXN7A73uu8Z1 QCYzMXHuEMV2tKJ1pO2e bGlnbjogbGVmdDsgdmVy cElvXLsoXPwkR143 IHRvcDsnPlBhdGllbnQg TnIpKBt2J6CnNbz0JGHj qXblVX4ywFVzTTxfEo2a zVmzfPvaOC1uYZHi xpwjr878RcWle5mzAARt wSLlIMpmKOE5E32dt8X8 KOFzIVRbGBW7zTJ0xB7q bGlnbjogbGVmdDsg zrPsuGonLTntZSdeL351 IHRvcDsnPkJpcnRoIERh lIA9TN83UT02tQDrx2K0 cMK3M3QuCLCbnvwx ysjhjZI1MBLiWXXkbS01 Tg7sbVskZc9jEQBtBQW1 HVNgkSBqO1BziT9xNsWl LVJlMNCdK0NngHXc VAywV333KQlsKoH4TBTy ttInY1YlFSSvjXzpUnX4 q7R1Ox5NP2C9QA00EA27 cAXoj3J8pGB5C5Ee WOSoloijwecwfGR2ELIa ASPozJ35Jf0dvDeiTn8n GYPpSMU8RGAwhEAdS5Hu yN7yHgDeFSCjILQq P0VrbQNrVKraX804MOlf TmV4POYaznYcI3VoXIOh zShzOsL5r4U5Iu1OMNy6 AU18VO82bDJft5X8 tMS7Y6ZcOFGkvrnccwwo sCY5QGTnSABweV12Uw6x zDqpYb1qCJZxPAP5ZRLy sFMhJ2GnvI0sCeEe NXScZVZlW5BcnKDlQLix S657TYcxCdV4GHSdwsKz Z0NfCEHikNndMeJ1w9F1 Fe2ZDDMiOZ70YYD5 fNZ2GL07TM46D2PjAewj dGFibGU+PHRhYmxlIHdp ZHRoPScxMDAlJyBzdHls RV6vKr0vQAUkIBFi jOsefZQjSwWtt1mzMSKv CUfeUS7inOrlE8TgaNX8 YOPzf1n0Xe73Q20cG6Az dXA+LYIttNA2tJP4 vV2aJwIaStY6WYeyY362 ZwJmyAEuBejrr6dlw4rk eBr0TxL9UKRiupAlrOqx UIS3s2YkVc88F93x IHdpZHRoPSIxNSUiIHZh hIiyjf9haT5kTb2+PGNv uMB8rPK8pP9cShZsEkO9 IHvbD295ApThzVKa Rawhc3yak5jdlDo4DcSi BZYrbcFalVflQOJ3m4Jb Ua69J7KbbEhbe2VpHgk8 er92vUKky8M4pTN3 J0KmKYXqkbokgGJvkKsy CF7iKPWleiltVMCrqB3c FVReZ1q6JtMqGgN5PTtz H2UcftW6PTHskDWb BZyyPAK0U84mn1Q5HFCc TLKyPPA5rDC4aU6rsXbt bjogbGVmdDsgdmVydGlj MLhbMOoqD963KNXq uDzfTSSbyG8wBEGlaIDi jCzvBJ7qACWzqlbzNoQS M2yUJjEcXO0RVdtYLwQZ KH23HK99yIDzf1K8 cMV9T6UlTOTqroyocusj kOF7CBHjQMKctO56aKQk OFzxRt1rj8C5i494IUZi KQGnhY38Lc7zsVqg LKEwvPMBnB7byhwyv5ud yffbPmSqQAInVQn9NRz9 TEBkiRphGhSzWFX8ElY4 DVS2gQKwxB9xzUlz nzkggP7uMol+MDIvMjcv MjAwMTwvdGQ+PHRkIHN0 bZclOAeqAJYktB4yRLJe S5e3YpMtKlK3OAfo O2WsXNDucboyHr18fW0i UzEbUaF9QActF7WbwhM9 OJBqeQMdFVayKAM1X66u g3R5BMVcBOVkYXO3 cFZ1bB8tyYrzbvtnxRXc dDsgdmVydGljYWwtYWxp J740XEMopIrzLcQdQUpt RBOxWH41SC72eORz b6X9zCI4D7OgTWEpigws qjnajVB1IKCnVWZilT98 oWPaLHgcVz1us1O5d774 QYWyWEKerG67Zw4g dHjwBSIrwIMUcH9sdlxg m7cpdowrFnNcYGPhPRp1 GTv9ZLFldRfcXpQxHMP2 OaP4JNH9wOYglI3g uCsylvovcP6kPpr+RmVt RCkeQS41ZB98pQPgz2A4 hDO8X3YdRHQjkyakzfud rKC8CPRvAQVlaD70 jXEdBXzsKs6iv4Y9y122 EPOlLSFfxK51Rj8ikXid VNPyuKIXbG7bfpvxt1xf cjogIzAwMDAwMDt0 EOx0PWBgwLwsXwGoNQD2 OfS8XMF3mTRyfN1tmUsk gemrxP2yJhs+D8H1dOJ6 aWVudDwvdGQ+PC90 qg70K0VlQrtdTtv4JZJt WON8eFV4nR4uXHJjDCee p3C1vWI1S7XaslSylu4i x1unEMDxLPjpN95i wEWyp6X4BTWgyJL8ZKIv mDsyFuYsiM66Dio+PGNv zMala8CkPpwhi2pvq5jf nKe7VxAcUDAduxDg fWiwUQQ2t8HcGi15P71m IHdpZHRoPSIzMCUiIHZh cCrzof5ixA5qFh7+PGNv eDQ9eDT2fH2aDoHk NcN9AYkqZ317MnGvgVYo Xfaom6wzb1atbQu2BbLm LIJtdwPajAphHRT5q9Uz Kk23A7JgqRihu1Fu Qdp7qo17nGLne5O1gDC4 O0NhFBTdsbhcxRMydSta BL3hXKGlvspdFRUfbO5j WIPzV2q6YsXlCwA3 FUerT3UoxoS0GTWwyHWj GYTmxHVJeG3chxrol4pb dabhHmDxXQJfJJe8ZDs6 LWFsaWduOiBsZWZ0 QvV2BRR5gCUqkF0vyEkr phwgbW7tAuz+OHq5g1md mORbLR8puMB3QL24XO99 gEJha9L4jVQ1R0Pa QEBwczgqprhclYT2LJFc HRLbaI04Ey2nzPnvAc9o QBImWOZ6BXXwsHMrO0Qr eA7yKwMyOQIcEPEq J7QflEUqLIfxG776HRqc QeK0LRFcraKoY2AmDCGj uEekAoC0m5C1Lq0YRH45 KY42LO04vKYvd9J9 qOB3K0RqNVYktegrjtev rAT1OOZcHACybB70Jo9g fSabZt3oVSAnGHH5HNYm qWMuC0XxiQ2eCpGa FNKdHTFxJ6WgtWBlZGgi U108HViiSiN0URRiuiXc Z4UfJWFweNheYxG9f7O1 Gj0SAv18QE10EA68 lQGlr0E5cLG5V0AiEJSl jirfjchalYE5UXGkADHx eR66Yv7tpBvzNp3oPSJp NOM8TVXyfQQuP3Ew pE9aTnHkPOPaSZAbL0Yx uAPqWQqqU312QSckFhX2 MIXddaQcO8NaZKGiyGjo TbX5d0R9Jk3GZSzc usu7W6DoYkbuwHL+PC90 CWOxZG05bKOyqATfq2vd oKr3PzPnWXAvXMV6sJmr LTuql1VrIVLjQ07t bGFw (more content not included)... Normal [facility] FERRITINon 12-15-2017 FERRITIN 19 NG/ML Normal 6.24-137 [facility] Comment on above: Result Comment: ROQUE ENOPAUSAL FEMALES 6.9-282.5POSTMENOPAUSAL FEMALES 14.0-233.1 IRONon 12-15-2017 Iron 87 ug/dL Normal 37-170 [facility] Vital Signs Date Time Vital Sign Value Performing Clinician Facility 04-11-2024 09:41-0500 Body height 158.75 cm Raquel Alarcon MD Work Phone: [facility] 04-11-2024 09:41-0500 Body mass index (BMI) [Ratio] 18.8 kg/m2 Raquel Alarcon MD Work Phone: [facility] 04-11-2024 09:41-0500 Body weight 47.62 kg Raquel Alarcon MD Work Phone: [facility] 04-11-2024 09:41-0500 Diastolic blood pressure 68 mm[Hg] Raquel Alarcon MD Work Phone: [facility] 04-11-2024 09:41-0500 Heart rate 83 /min Raquel Alarcon MD Work Phone: [facility] 04-11-2024 09:41-0500 Systolic blood pressure 102 mm[Hg] Raquel Alarcon MD Work Phone: [facility] 04-21-2023 15:45-0500 Body height 158.75 cm Raquel Alarcon Other [facility] Other 04-21-2023 15:45-0500 Body mass index (BMI) [Ratio] 19.44 kg/m2 Raquel Alarcon Other [facility] Other 04-21-2023 15:45-0500 Body weight 48.99 kg Raquel Alarcon Other [employer] [facility] Other 04-21-2023 15:45-0500 Diastolic blood pressure 88 mm[Hg] Raquel Alarcon Other [facility] Other 04-21-2023 15:45-0500 Systolic blood pressure 146 mm[Hg] Raquel Alarcon Other [facility] [employer] Other 07-11-2022 23:36-0500 Body height 157.48 cm MD Raquel Alarcon Work Phone: [facility] 07-11-2022 23:36-0500 Body temperature 97.9 [degF] MD Raquel Alarcon Work Phone: [facility] 07-11-2022 23:36-0500 Body weight 60 kg MD Raquel Alarcon Work Phone: [facility] 07-11-2022 23:36-0500 Diastolic blood pressure 77 mm[Hg] MD Raquel Alarcon Work Phone: [facility] 07-11-2022 23:36-0500 Heart rate 65 /min MD Raquel Alarcon Work Phone: [facility] 07-11-2022 23:36-0500 Respiratory rate 18 /min MD Raquel Alarcon Work Phone: [facility] 07-11-2022 23:36-0500 SaO2% (BldA) [Mass fraction] 100 % MD Raquel Alarcon Work Phone: [facility] 07-11-2022 23:36-0500 Systolic blood pressure 140 mm[Hg] MD Raquel Alarcon Work Phone: [facility] 01-26-2022 17:07-0400 Body weight 62.[address] SIN STEPHEN . [facility] Comment on above: Performed By: #### AFPMAT #### [facility] [address] [place] [address] Dr. Melba Lorenzo Encounters Encounter Date Encounter Type Care Provider Facility Start: 04-12-2024 End: 04-12-2024 Patient encounter procedure Raquel Alarcon MD Work Phone: [facility] Work Phone: Start: 04-12-2024 End: 04-12-2024 ambulatory Raquel Alarcon MD Work Phone: [facility] Work Phone: Start: 04-11-2024 End: 04-11-2024 Patient encounter procedure Raquel Alarcon MD Work Phone: [facility] Work Phone: Start: 03-15-2024 End: 03-15-2024 Bamboo flowsheet [facility] PA Work Phone: [facility] Start: 03-15-2024 End: 03-15-2024 [facility]amboo [facility]sheet [facility] Work Phone: [facility] Start: 03-15-2024 End: 03-15-2024 ambulatory BLAINE NORTHEIM Not Available Start: 03-15-2024 End: 03-15-2024 Office outpatient visit 15 minutes Blaine Northeim PA Work Phone: [facility] Comment on above: Dyshidrotic eczema ( Primary Dx); Onychomycosis Start: 02-14-2024 End: 02-14-2024 Bamboo flowsheet [facility] Work Phone: [facility] Start: 02-14-2024 End: 02-14-2024 Bamboo flowsheet [facility] Work Phone: [facility] Start: 02-14-2024 End: 02-14-2024 Office outpatient new 45 minutes Blaine Northei PA Work Phone: [facility] Comment on above: Other atopic dermati tis (Primary Dx) Start: 02-14-2024 End: 02-14-2024 ambulatory BLAINE NORTHEIM Not Available Start: 01-10-2024 End: 01-10-2024 ambulatory SIN ADDY Not Available Start: 05-06-2023 End: 05-06-2023 ambulatory Raquel Alarcon Other [facility] Other Start: 05-06-2023 Telephone encounter Raquel Alarcon [facility] Start: 04-25-2023 End: 04-25-2023 ambulatory Raquel Alarcon Other [facility] Other Start: 04-25-2023 Telephone encounter Raquel Alarcon [facility] Start: 04-21-2023 End: 04-21-2023 ambulatory Raquel Alarcon Other [facility] Other Start: 04-21-2023 Office outpatient ne w 30 minutes Raquel Alarcon [facility] Start: 07-11-2022 End: 07-12-2022 Emergency department patient visit MD Raquel Alarcon Work Phone: [facility] Work Phone: Start: 07-10-2022 End: 07-10-[address] RAQUEL ALARCON Facility:[facility]1 Start: 05-30-2022 End: 06-02-2022 Evaluation and management of inpatient DR SIN STEPHEN . Facility:[facility] Start: 05-22-2022 End: 05-22-2022 ambulatory MURTAZA CATESY Facility:[facility]1 Start: 05-10-2022 End: 05-10-[address] [...] End: 10-24-[address] SIN STEPHEN . Facility: Start: 12-15-2017 Patient encounter SKYE Pat [facility] Procedures Date Procedure Procedure Detail Performing Clinician Start: 05-31-2022 Extraction of Produc ts of Conception, Low Cervical, Open Approach DR SIN STEPHEN . Start: 05-31-2022 Drainage of Amniotic Fluid, Therapeutic from Products of Conception, Via Natural or Artificial Opening DR SIN STEPHEN . Start: 05-30-2022 Introduction of Horm one into Female Reproductive, Via Natural or Artificial Opening DR SIN STEPHEN . Plan of Treatment Date Care Activity Detail Author Start: 03-15-2025 End: 03-15-2025 Patient encounter procedure 03/15/2025 8:30 AM EDT Office Visit [facility] [address] [place] [address] Blaine He PA [address] [place] [address] [facility] Start: 02-18-2025 End: 02-18-2025 Patient encounter procedure 02/18/2025 9:00 AM EDT Office Visit [facility] [address] [place] [phone] Sin Stephen DO [address] [address] [facility] Start: 03-15-2024 End: 03-15-2024 Patient encounter procedure 03/15/2024 11:20 AM EDT Office Visit [facility] [address] [place] [address] Blaine He PA [address] [place] [address] [facility] Start: 02-14-2024 End: 02-14-2024 Patient encounter procedure 02/14/2024 1:20 PM EDT Office Visit [facility] [address] [place] [phone] Blaine He PA [address] [place] [address] Arrived [facility] Comment on above: Arrived Start: 02-05-2024 Influenza vaccination Influenza Vacc ine (#1) [facility] Start: 07-12-2022 Superficial Wound Culture Superficial Wound Culture [facility] Bacteria identified in Unspecified specimen by Aerobe culture [facility] Patient Education Wound [facility] Work Phone: Patient referral [facility] Work Phone: Immunizations Immunization Date Immunization Notes Care Provider Fa bryce 05-06-2022 influenza virus vaccine, unspecified formulation Blaine GUZMAN Work Phone: [facility] 06-09-2021 COVID-19 Vaccine Moderna - Documentation Purposes Only Raquel Agnes Other [facility] Payers Date Payer Category Payer Self-pay 2022 [place] [facility] [place] [id number] 2022-Present [phone] [address] [place] [address] Medicaid [id number] 2022 Unknown [id number] [id number] 2000 Unknown [id number] 2.16.840.1.072843.3.579.2.593 2000 Unknown [id number] 2.16.840.1.753099.3.579.2.593 2000 Unknown [id number] 2.16.840.1.642423.3.579.2.593 2000 Unknown [id number] 2.16.840.1.056156.3.579.2.593 2000 Unknown [id number] 2.16.840.1.072169.3.579.2.593 2000 Unknown [id number] 2.16.840.1.790489.3.579.2.593 2000 Unknown [id number] 2.16.840.1.588018.3.579.2.593 2000 Unknown [id number] 2.16.840.1.318900.3.579.2.593 2000 Unknown [id number] 2.16.840.1.308448.3.579.2.593 2000 Unknown [id number] 2.16.840.1.253973.3.579.2.593 2000 Unknown [id number] 2.16.840.1.687297.3.579.2.593 2000 Unknown [id number] 2.16.840.1.379254.3.579.2.1259 2000 Unknown [id number] 2.16.840.1.319653.3.579.2.1259 2000 Unknown [id number] 2.16.840.1.212773.3.579.2.1259 1959 Medicaid [id number] 1959 Self-pay [id number] 1959 Unknown [id number] 1959 Unknown [id number] Unknown [id number] 2.16.840.1.212109.3.579.2.593 Unknown [id number] 2.16.840.1.602963.3.579.2.531 Social History Date Type Detail Facility Start: 07-11-2022 End: 12-19-2022 Tobacco smoking status NHIS Never smoked tobacco (finding) [facility] Start: 2000 Sex Assigned At Female [facility] Start: 01-10-2024 End: 02-14-2024 Sex Assigned At [facility] Start: 12-19-2022 Tobacco use and exposure Smokeless tobacco non-user [facility] Start: 01-10-2024 End: 02-14-2024 Alcoholic beverage intake Lifetime non-drinker (finding) [facility] Start: 01-10-2024 End: 02-14-2024 History of Social function [facility] Start: 12-20-2022 Gender identity Identifies as female gender (finding) [facility] Start: 12-20-2022 Sexual orientation Heterosexual (finding) [facility] Start: 04-13-2024 Sex Female (finding) [facility] Clinical Notes 05-30-2022 to 04-11-2024 Note Date & Type Note Facility 04-11-2024 Evaluation note Diagnosis Onset Date Resolution Abnormal weight loss acute Spencer chowdhury 2023 9:28am [facility] Work Phone: 1(776) 264-846410-10-2024 History of Present illness Narrative* MEGAN Nicolas - 03/15/2024 11:30 AM EDT Images from the original note were not included. Follow up Diagnosis: Dyshidrotic Eczema Location: Right hand Last visit: 02/14/2024 Symptoms: Minimal itching Status: Improved Treatments tried and failed: Aquaphor Current treatment: Betamethasone dipropionate 0.05 % cream bid/prn All pertinent medical history, medications, and allergies were reviewed. General Exam: alert, oriented to person, place, and time, normal affect, well appearing A focused exam completed based on patient reported problems, see below: 1. Dyshidrotic eczema Right Hand - Anterior, Right Hand - Posterior Mild scale and erythema. Improved, but not at treatment goal. Much improved, and happy with treatment. Plan to continue use of Betamethasone dipropionate 0.05 % cream bid/prn as needed for flares. Recommended Soap and Moisturizer handout given. Continue hand eczema care as discussed. Plan to follow up in one year unless flared prior to. Related Medications betamethasone dipropionate 0.05 % cream APPLY THIN LAYER (1.5 GRAMS) TO AFFECTED AREAS ON HANDS TWICE DAILY NEEDED. HOLD WHEN CLEAR, USED WHEN FLARED. AVOID USE ON FACE, SKIN FOLDS AND GROIN 2. Onychomycosis Right 3rd Fingernail Subungual hyperkeratosis with nail thickening The patient was informed that onychomycosis is a fungal infection of the nails. Treatment is not necessary, but can be treated with topical or oral antifungal agents. Recurrence can occur despite treatment in some cases. The goal is to grow out a normal nail which can take several months to occur. Start Ciclopirox gel every day until new nail grows in. Ciclopirox 0.77 % gel - Right 3rd Fingernail Apply thin layer to affected area once a day, 30 day supply Next Visit: 1 year, follow up documented in this encounterNOMS [id number] History of Present illness Narrative* MEGAN Nicolas - 02/14/2024 1:20 PM EDT Images from the original note were not included. Rash Location: right hand Duration: months Severity: moderate Quality: itchy Modifying Factors: better with Aquaphor Associated symptoms: red, blisters, scaly, cracking Treatments tried: moisturizers Current treatments: Aquaphor New patient All pertinent medical history, medications, and allergies were reviewed. General Exam: alert , oriented to person, place, and time , normal affect, well appearing Accompanied by daughter A focused exam completed based on patient reported problems, see below: 1. Other atopic dermatitis Right 3rd Finger Metacarpophalangeal Joint, Right 3rd Finger Proximal Interphalangeal Joint, Right 3rd Finger Tip, Right 3rd Metacarpophalangeal Region, Right 4th Finger Metacarpophalangeal Joint, Right 4th Finger Tip, Right 4th Metacarpophalangeal Region, Right Dorsal Hand, Right Dorsal Mid 3rd Finger, Right Dorsal Mid 4th Finger, Right Forearm - Posterior, Right Palmar Middle 3rd Finger, Right Palmar Middle 4th Finger, Right Palmar Proximal 3rd Finger, Right Palmar Proximal 4th Finger, Right Proximal 3rd Finger, Right Proximal 4th Finger, Right Wrist - Posterior Scaly erythematous plaques +/- dyspigmentation, lichenification, excoriations. Flaring today Discussed that atopic dermatitis is a chronic condition that can be controlled but not cured. Dyshidrotic eczema is a form of atopic dermatitis affecting the hands. 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 Will have her start Betamethasone cream 0.05% bid prn when flaredon the hands, hold if smooth/asymptomatic. Encouraged daily moisturizing and gentle cleansers to prevent flares. Also suggested using luke-warm water when washing hands and wearing cotton gloves at night to help. Notify office if flaring despite treatment. Follow up in 4-6 weeks Related Medications betamethasone dipropionate 0.05 % cream Apply topically 2 (two) times a day as needed (Rash) Next Visit: 4-6 weeks documented in this encounterP[facility]ot [facility] [id number] Evaluation note* Encounter Date Diagnosis Assessment Notes Treatment Notes Treatment Clinical Notes Apr, Weight loss, unintentional (ICD-10 - R63.4) Check labs to r/o anemia, glycemic issues and other metabolic causes. Apr, LLQ abdominal pain (ICD-10 - R10.32) Check US. Follow w OB as scheduled. [facility] Other [id number] History general Narrative - Reported* Type Description Date Medical History Exercise-induced asthma Surgical History Problem Title : None, Problem S tatus : Active, Surgical History C - Section 05-31-2022 [facility] Other 12-25-2022 NoteDISCHARGE DATE: 06/02/2022 PRIMARY DIAGNOSES: 1. Intrauterine at 39 weeks. [...] when pain free and no longer on narcotics.[id number] NoteDISCHARGE SUMMARY DISCHARGE DATE: 06/23/2022 PRIMARY DIAGNOSES: 1. [...] when pain free and no longer on narcotics.[facility] [id number] NoteOPERATIVE NOTE OPERATION DATE: 05/31/2022 PROCEDURE: Primary low transverse section. PREOPERATIVE DIAGNOSIS: 1. Intrauterine at 39 weeks. 2. Breach presentation. POSTOPERATIVE DIAGNOSIS: 1. Intrauterine at 39 weeks. 2. Breach presentation. ANESTHESIA: Spinal with Duramorph. SURGEON: Sin Stephen D.O. BOOT TRIMMER: HARLEEN Alvarado URINE OUTPUT: Yellow and clear. [...] patient's uterus and extended laterally digitally. The was then delivered atraumatically after the bladder blade was removed in the cephalic position. The cord was clamped and cut. Cord blood was obtained. The infant was handed off to awaiting team. The [...] taken to the Recovery Room in stable condition.[facility] noteNo assessment information availableK[facility] Work Phone: Evaluation noteNo InformationNoJefferson [facility] Other Evaluation note* Diagnosis Dyshidrotic eczema- Primary Onychomycosis Dermatophytosis of nail documented in this encounter [facility]* Diagnosis Other atopic dermatitis- Primary documented in this encounter [facility] Summary Purpose Family History No Family History Records FoundNo Family History Records FoundNo Family History Records FoundNo Family History Records FoundNo Family History Records Found Advance Directives No Advanced Directives Records Found Advance Directive Response Recorded Date/ Time Advance Directives No July 12, 2022 1:23am Chief Complaint and Reason for Visit Chief Complaint post surgery issues Chief Complaint Admit Date wellness April 11, 2024 9 :28am R63.4 April 12, 2024 1 1:45am Reason for Visit Admit Date Abnormal weight loss April 11, 2024 9:28am Additional Source Comments INFORMATION SOURCE (unrecogn ized section and content) DATE CREATED AUTHOR 12/16/2017 [facility] DATE CREATED AUTHOR AUTHOR'S ORGANIZ ATION 02/11/2022 [facility] DATE CREATED AUTHOR AUTHOR'S ORGANIZ ATION 08/18/2022 [facility] DATE CREATED AUTHOR AUTHOR'S ORGANIZ ATION 03/17/2024 [facility] EPIC DATE CREATED AUTHOR AUTHOR'S ORGANIZ ATION 05/26/2024 [facility] Care Teams (unrecognized sec tion and content) Team Status: Active Member Role Status Dates Raquel Alarcon MD Primary Care Provider Active Team Status: Inactive Member Role Status Dates Raquel Alarcon MD Primary Care Provide r, Attending Provider Active Start: April 11, 2024 End: April 11, 2024 Team Status: Inactive Member Role Status Dates Raquel Alarcon MD Primary Care Provide r, Attending Provider Active Start: April 12, 2024 End: April 12, 2024 Team Status: Inactive Member Role Status Dates Raquel Alarcon MD Primary Care Provider Active Piter Bowers DO Emergency Provider Active Collection Specialist Relationship Specialty Start Date End Date Raquel Alarcon MD [address] [place] [phone] PCP - General 12/20/22 Collection Specialist Relationship Specialty Start Date End Date Raquel Alarcon MD [address] [place] [phone] PCP - General 12/20/22 Collection Specialist Relationship Specialty Start Date End Date Raquel Alarcon MD [address] [facility] [place] [address] PCP - General 12/20/22 Goals (unrecognized section and content) Goals may be documented in a n alternate sectionNo InformationNo InformationNo InformationGoals may be documented in an alternate section REASON FOR VISIT (unrecogniz ed section and [...] BE BASED ON THE PRIMARY CLINICAL RECORDS. [email or web address] [facility]. provides no warranty or guarantee of the accuracy or completeness of information in this document.
[2024-11-08 12:13] LABS: Basophils Percent Auto 0.9 % (0.2-2.0); Eosinophils Absolute Auto 0.1 10^3/uL (0.0-0.7); Eosinophils Percent Auto 2.1 % (0.9-7.0); Hematocrit 37.6 % (36.0-48.0); Hemoglobin 13.2 g/dL (12.0-16.0); Immature Granulocytes Abs Auto 0.01 10^3/uL (0.00-0.03); Immature Granulocytes Pct Auto 0.2 % (0.0-0.5); Lymphocytes Absolute Auto 2.1 10^3/uL (1.2-3.8); Mean Corpuscular HGB Conc 35.1 g/dL (29.9-35.2); Mean Corpuscular Hemoglobin 30.5 pg (26.7-34.0); Mean Corpuscular Volume 86.8 fL (81.0-99.0); Mean Platelet Volume 9.3 fL (9.5-13.5); Monocytes Absolute Auto 0.3 10^3/uL (0.3-0.8); Neutrophils Absolute Auto 1.7 10^3/uL (1.4-6.5); Neutrophils Percent Auto 39.8 % (43.0-75.0); Platelet Count 218 10^3/uL (150-450); Red Blood Count 4.33 10^6/uL (4.20-5.40); Red Cell Distribution Width 12.6 % (11.0-15.0); White Blood Count 4.3 10^3/uL (4.0-11.0)
[2024-11-08 12:24] LABS: Estimated Average Glucose 91 mg/dL; Glycohemoglobin A1C 4.8 % (4.5-6.2)
[2024-11-08 12:56] LABS: Free T4 1.02 ng/dL (0.76-1.46)
[2024-11-08 13:01] LABS: Thyroid Stimulating Hormone 1.193 uIU/mL (0.358-3.740)
[2024-11-08 13:11] LABS: HCG Quantitative <1 mIU/mL
[2024-11-09 04:07] LABS: FSH 5.3 mIU/mL (.); Luteinizing Hormone(LH) 6.9 mIU/mL (.)
[2024-11-13 16:09] LABS: DHEA, Serum 109 ng/dL (31-701)
== END 2024-11-08 11:48 | disposition home or self-care (01) ==
LOC: LAB 11:55
PROVIDERS: PCP Family Medicine; Visit Provider Obstetrics & Gynecology
DX: N94.10 Unspecified dyspareunia (principal); N92.6 Irregular menstruation, unspecified
CPT/HCPCS: 36415; 82626; 82627; 83001; 83002; 83036; 84439; 84443; 84702; 85025

== ENCOUNTER 2024-11-13 13:54 | Outpatient (OUT) | payer OTHER, SELFPAY ==
--- OUTSIDE RECORDS SUMMARY | 2022-05-06 05:30 | XMS_ITS | Continuity of Care Document ---
Author Organization [facility] Address [address] [place] [address] Phone Care Team Providers Care Mortgage Closing Clerk Name Role Phone Robert Mckenzie Unavailable Unavailable Procedures Procedure Date IMMUNIZATION ADMIN, EACH ADD TDAP VACCINE >7 IM IMMUNIZATION ADMIN FLU VAC NO PRSV 4 LANCE 3 YRS+ Advance Directives Directive Yes / No Effective Date File Name No Information Encounters Encounter Description Practice Location Reason(s) For Visit Diagnoses Date Provider Providers Copied on Encounter [facility], [address], [place], [id number], [place] tel:[phone] [facility] No Information Sowmya DOVE Robert. [address], [place], [id number], [place]. tel:[phone] Family History Family Member Type Diagnosis Age At Onset No Information Immunizations Vaccine Date Status Comments Tdap (Boostrix) administered Source: New Immunization Record Flulaval/ Fluarix administered Source: Ne w Immunization Record Payers Payer name Insurance type Covered green party ID Authorlakea trevlaverne(s) Medical Virgie CI [id number] Social History Type Description Quantity Date Captured Comments Alcohol Use Details Unknown Caffeine Use Details Unknown Tobacco Use Status No Information Smoking Status No Information Sex Female Sexual Orientation Straight or heterosexual Gender Identity Female Chief Complaint And Reason For Visit No Information Reason For Referral Reason For Referral No Information Plan Of Treatment Date Type Action Status Goal PAP. Due on due Goal PRAPARE ASSESSMENT. Due on D due Goal Influenza vaccine. Due on due Goal Depression screening. Due on due Goal Tdap. Due on due Goal RLP. Due on due History Of Present Illness Encounter Date Complaint History Of Prese nt Illness No Information Functional Status Date Functional Assessmen t No Information Instructions Date Instruction Additional Infor mation No Information Assessments Type Assessment Date No Information Patient Care Teams Name Effective Dates (start - stop) Status Members No Information
--- OUTSIDE RECORDS SUMMARY | 2024-11-08 10:20 | XMS_ITS | Encounter Summary ---
Author Organization [facility] Address [address] [place] [place] [address] Care Team Providers Care Canadian Bacon Tier Name Role Phone Raquel Hinkle MD Primary Care Provider [phone] Reason for Visit * Reason Comments Dyspareunia Encounter Details Date Type Department Care Team (Late Contact Info) Description 11/08/2024 10:20 AM EDT Office Visit [facility] [address] [address] Elijah Stephen, DO [address] [facility] [place] [address] Dyspareunia in female; Irregular menstrual cycle Social History Tobacco Use Types Packs/Day Years Used Date Smoking Tobacco: Never Smokeless Tobacco: Never Alcohol Use Standard Drinks/Week Comments Never 0 (1 standard drink = 0.6 oz pur e alcohol) Comments Unknown Sex and Gender Information Value Date Recorded Sex Assigned at Female 12/20/2022 6:35 AM EDT Legal Sex Female 6:37 PM EDT Gender Identity Female 12/20/2022 6:35 AM EDT Sexual Orientation Straight 12/20/2022 6: 35 AM EDT documented as of this encounter Last Filed Vital Signs Vital Sign Reading Time Taken Comments Blood Pressure 120/64 11/08/2024 10:46 AM EDT Pulse - - Temperature - - Respiratory Rate - - Oxygen Saturation - - Inhaled Oxygen Concentration - - Weight 53.3 kg (117 lb 8 oz) 11/08/2024 10:46 AM EDT Height - - Body Mass Index 21.49 12/21/2022 3:45 PM EDT documented in this encounter Progress Notes * Nadja Swift, B[employer] PLANT OPERATIONS ENGINEER - 11/08/2024 10:20 AM EDT Reason for Appointment: Patient ID: Cornell Thomas is a 24 y.o. female who presents for Dyspareunia Patient presents today for Consult appointment. MEDICATIONS Current Outpatient Medications Medication Instructions albuterol HFA 90 mcg/act inhaler 2 puffs, Inhalation, Every 6 hours PRN betamethasone dipropionate 0.05 % cream APPLY THIN LAYER (1.5 GRAMS) TO AFFECTED AREAS ON HANDS TWICE DAILY NEEDED. HOLD WHEN CLEAR, USED WHEN FLARED. AVOID USE ON FACE, SKIN FOLDS AND GROIN desogestrel-ethinyl estradiol (Apri) 0.15-30 MG-MCG tablet 1 tablet, Oral, Daily, Take 1 tablet by mouth daily doxycycline (VIBRAMYCIN) 100 mg, Oral, 2 times daily norethindrone-ethinyl estradiol (Junel FE 06/25) 1-20 MG-MCG tablet 1 tablet, Oral, Daily ALLERGIES No Known Allergies PROBLEMS Active Ambulatory Problems Diagnosis Date Noted No Active Ambulatory Problems Resolved Ambulatory Problems Diagnosis Date Noted No Resolved Ambulatory Problems Past Medical History: Diagnosis Date Exercise-induced asthma (CMS/HCC) Mononucleosis Rk-Schlatter's disease Yeast infection HISTORY PAST MEDICAL HISTORY SOCIAL HISTORY Past Medical History: Diagnosis Date Exercise-induced asthma (CMS/HCC) Mononucleosis [place]yenne-Schlatter's disease Yeast infection Social History Tobacco Use Smoking status: Never Smokeless tobacco: Never Substance Use Topics Alcohol use: Never Drug use: Never FAMILY HISTORY No family history on file. SURGICAL HISTORY Past Surgical History: Procedure Laterality Date SECTION, LOW TRANSVERSE 05/31/2022 PAP SMEAR 12/14/2021 negative REVIEW OF SYSTEMS Review of Systems: Review of Systems Constitutional: Negative. HENT: Negative. Eyes: Negative. Respiratory: Negative. Cardiovascular: Negative. Gastrointestinal: Negative. Genitourinary: Positive for menstrual problem. Musculoskeletal: Negative. Skin: Negative. Neurological: Negative. All other systems reviewed and are negative. Hematological: Negative. Endocrine: Negative. Allergic/Immunologic: Negative. OBJECTIVE Objective: Physical Exam Constitutional: Appearance: Normal appearance. She is well-developed. Cardiovascular: Rate and Rhythm: Normal rate and regular rhythm. Pulmonary: Effort: Pulmonary effort is normal. Breath sounds: Normal breath sounds. Abdominal: General: Bowel sounds are normal. There is no distension. Palpations: Abdomen is soft. Tenderness: There is no abdominal tenderness. There is no guarding or rebound. Musculoskeletal: General: No swelling. Normal range of motion. Right lower leg: No edema. Left lower leg: No edema. Neurological: Mental Status: She is alert and oriented to person, place, and time. Skin: General: Skin is warm and dry. Psychiatric: Mood and Affect: Mood normal. Behavior: Behavior normal. Vitals and nursing note reviewed. Exam conducted with a it portfolio manager present. Vitals: Estimated body mass index is 21.49 kg/m?? as calculated from the following: Height as of 12/21/22: 5' 2 . Weight as of this encounter: 117 lb 8 oz. BP: 120/64 Patient's last menstrual period was 10/30/2024. ASSESSMENT & PLAN ICD-10-CM 1. Dyspareunia in female N94.10 hCG, quantitative, TSH T4, free CBC and differential Follicle stimulating hormone Luteinizing hormone Hemoglobin A1c DHEA-sulfate DHEA US Pelvis w/ TV desogestrel-ethinyl estradiol (Apri) 0.15-30 MG-MCG tablet doxycycline (Vibramycin) 100 MG capsule DHEA POCT , urine manually resulted POCT urinalysis dipstick manually resulted 2. Irregular menstrual cycle N92.6 hCG, quantitative, TSH T4, free CBC and differential Follicle stimulating hormone Luteinizing hormone Hemoglobin A1c DHEA-sulfate DHEA US Pelvis w/ TV desogestrel-ethinyl estradiol (Apri) 0.15-30 MG-MCG tablet doxycycline (Vibramycin) 100 MG capsule DHEA POCT , urine manually resulted POCT urinalysis dipstick manually resulted Patient presents to office today to discuss irregular vaginal bleeding and painful intercourse. Discussed possible causes with patient and that lab work and ultrasound is recommended to be obtained to assess possible causes of bleeding and pain. Informed patient that Doxycycline 100mg PO BID #14 days would be sent to [facility] in [place] to help with symptoms. Discussed with patient also changing OCP to Apri as well. Patient is agreeable with plan of care and will setup follow up appointment to discuss results and see if medication helped. Documented by Nadja Swift LPN on behalf of: Elijah Stephen DO documented in this encounter Plan of Treatment Upcoming Encounters Date Type Department Care Team (Late st Contact Info) Description 02/18/2025 9:00 AM EDT Office Visit [facility] [address] [address] Eljiah Stephen DO [address] [facility] [place] [address] 03/15/2025 8:30 AM EDT Office Visit [facility] [address] [place] [address] Livier He PA [address] [place] [address] Scheduled Orders Name Type Priority Associated Diagnoses Orde r Schedule hCG, quantitative, Lab Routine Dyspareunia in female Irregular menstrual cycle Ordered: 11/08/2024 TSH Lab Routine Dyspareunia in female Irregular menstrual cycle Ordered: 11/08/2024 T4, free Lab Routine Dyspareunia in female Irregular menstrual cycle Ordered: 11/08/2024 CBC and differential Lab Routine Dyspareunia in female Irregular menstrual cycle Ordered: 11/08/2024 Follicle stimulating hormone Lab Routine Dyspareunia in female Irregular menstrual cycle Ordered: 11/08/2024 Luteinizing hormone Lab Routine Dyspareunia in female Irregular menstrual cycle Ordered: 11/08/2024 Hemoglobin A1c Lab Routine Dyspareunia in female Irregular menstrual cycle Ordered: 11/08/2024 DHEA-sulfate Lab Routine Dyspareunia in female Irregular menstrual cycle Ordered: 11/08/2024 DHEA Lab Routine Dyspareunia in female Irregular menstrual cycle Expected: 11/08/2024 (Approximate), Expires: 11/08/2025 US Pelvis w/ TV Imaging Routine Dyspareunia in female Irregular menstrual cycle Expected: 11/08/2024, Expires: 11/08/2025 documented as of this encounter Procedures Procedure Name Priority Date/Time Associated Diagnosis Comments POCT , URINE Routine 11/08/2024 11:46 AM EDT Dyspareunia in female Irregular menstrual cycle POCT URINALYSIS DIPSTICK Routine 11/08/2024 11:45 AM EDT Dyspareunia in female Irregular menstrual cycle documented in this encounter Results * POCT , urine manually resulted (11/08/2024 11:46 AM EDT) Preg Test, Ur Negative Negative Urine 11/08/2024 11:4 6 AM EDT us Elijah Zafar DO POINT OF CARE TEST ENTER/EDIT OR DERABLES Final Result * (ABNORMAL) POCT urinalysis dipstick manually resulted (11/08/2024 11:45 AM EDT) Color, UA Yellow Clarity, UA Clear Glucose, UA Negative Negative - 2000(110) ++++ mg/dL Bilirubin, UA Positive Negative - 4(70) +++ mg/dL Comment:small Ketones, UA Positive Negative - 160(16) ++++ mg/dL Comment:Trace Spec Grav, UA 1.025 1 - 1.03 Blood, UA Negative Negative - 50 Paul/mcL pH, UA 6.0 5 - 9 Protein, UA Positive Negative - 2000(20) ++++ mg/dL Comment:30mg/dL Urobilinogen, UA 0.2 0.2 - 12 mg/dL Leukocytes, UA Trace Negative - 500+++ Jennifer/mcL Nitrite, UA Negative Negative - Positive Urine 11/08/2024 11:4 5 AM EDT us Eiljah Zafar DO POINT OF CARE TEST ENTER/EDIT OR DERABLES Final Result documented in this encounter Visit Diagnoses Diagnosis Dyspareunia in female Irregular menstrual cycle documented in this encounter Care Teams Canadian Bacon Tier Relationship Specialty Start Date End Date Raquel Hinkle MD [facility] [place] [address] PCP - General 12/20/22 documented as of this encounter
--- OUTSIDE RECORDS SUMMARY | 2024-11-13 13:57 | XMS_ITS | Encounter Summary ---
Author Organization [facility] Address [address] [place] [address] Care Team Providers Care Rivet Catcher Name Role Phone Raquel Hinkle MD Primary Care Provider [phone] Encounter Details Date Type Department Care Team (Late st Contact Info) Description 11/01/2024 Orders Only [facility] [address] [address] Marilee Landrum LPN [address] [place] [address] [place] [address] Social History Tobacco Use Types Packs/Day Years [...] Visit [facility] [address] [place] [place] [address] Elijah Stephen DO [address] [place] [address] 03/15/2025 8:30 AM EDT Office Visit [facility] [address] [place] [address] Livier He PA [address] [place] [address] documented as of this encounter [...] on filedocumented in this encounter Care Teams Rivet Catcher Relationship Specialty Start Date End Date Raquel Hinkle MD [address] [place] [address] PCP - General 12/20/22 documented as of this encounter
--- OUTSIDE RECORDS SUMMARY | 2024-11-13 13:57 | XMS_ITS | Encounter Summary ---
Author Organization [facility] Address [address] [place] [address] Care Team Providers Care Pad Extractor Tender Name Role Phone Clint Tejada MD Primary Care Provider [phone] Reason for Visit * Reason Comments Medication Refill Encounter Details Date Type Department Care Team (Late st Contact Info) Description 08/25/2019 Refill [facility] [address] [place] [address] Dr [address] [place] [id number] Jaquelnie Quijano [employer] - [address] [place] [address] Medication Refill Social History Tobacco [...] tract documented in this encounter Care Teams Pad Extractor Tender Relationship Specialty Start Date End Date Clint Tejada MD [address] [place] [address] PCP - General Pediatrics 11/24/16 documented as of this encounter
--- OUTSIDE RECORDS SUMMARY | 2024-11-13 13:57 | XMS_ITS | Encounter Summary ---
Author Organization [facility] Address [address] [place] [address] Care Team Providers Care Rn Clinical Research Name Role Phone Raquel Hinkle MD Primary Care Provider [phone] Reason for Visit * Reason Comments Med Change Request Encounter Details Date Type Department Care Team (Late Contact Info) Description 02/20/2024 Refill [facility] [address] [place] [address] Livier He PA [address] [place] [address] Other atopic dermatitis Social History Tobacco Use Types Packs/Day Years [...] AM EDT documented as of this encounter Miscellaneous Notes * Telephone Encounter - Thania Shipman LPN - 02/20/2024 9:30 AM EDT Medication clarification documented in this encounter Plan of Treatment Upcoming Encounters Date Type Department Care Team (Late Contact Info) Description 02/18/2025 9:00 AM EDT Office Visit [facility] [address] [place] [phone] Elijah Stephen DO [address] [place] [address] 03/15/2025 8:30 AM EDT Office Visit [facility] [address] [place] [address] Livier He PA [address] [place] [address] documented as of this encounter Visit Diagnoses Diagnosis Other atopic dermatitis documented in this encounter Care Teams Rn Clinical Research Relationship Specialty Start Date End Date Raquel Hinkle MD [address] [facility] [place] [phone] PCP - General 12/20/22 documented as of this encounter
--- OUTSIDE RECORDS SUMMARY | 2024-11-13 13:57 | XMS_ITS | Encounter Summary ---
Author Organization [facility] Address [address] [place] [address] Care Team Providers Care Community Health Director Name Role Phone Clint Tejada MD Primary Care Provider [phone] Reason for Visit * Reason Comments Medication Refill Encounter Details Date Type Department Care Team (Late st Contact Info) Description 08/27/[address] [facility] [address] [place] [address] Dr [address] [place] [id number] Jaqueline Quijano ENGLISH DRAWER - [address] [place] [address] Medication Refill Social History Tobacco [...] tract documented in this encounter Care Teams Community Health Director Relationship Specialty Start Date End Date Clint Tejada MD [address] [place] [address] PCP - General Pediatrics 11/24/16 documented as of this encounter
--- OUTSIDE RECORDS SUMMARY | 2024-11-13 13:57 | XMS_ITS | Clinical Summary ---
Author Organization [facility] Healthcare Address [address] [place] [address] Care Team Providers Care Fender Mechanic Name Role Phone Raquel Hinkle MD Primary Care Provider [phone] Allergies No known active allergies Medications albuterol [...] 11/08/2024 10:20 AM EDT Office Visit [facility] [address] [place] [address] Elijah Stephen, DO Dyspareunia in female; Irregular menstrual cycle 11/08/2024 Clinisync Result Encounter [facility] External Department Unsolicited Elijah Stephen, DO 11/08/2024 Bamboo flowsheet [facility] [address] [place] [address] Elijah Stephen, DO 11/01/2024 Orders Only [facility] [address] [place] [address] Marilee Landrum LPN from Last 3 [...] 02/18/2025 9:00 AM EDT Office Visit [facility] [address] [place] [id number] Elijah Stephen, DO [address] [facility] [place] [address] 03/15/2025 8:30 AM EDT Office Visit [facility] [address] [place] [address] Livier He PA [address] [place] [address] Health Maintenance Due Date Last Done Comments Influenza Vaccine (Season Ended) 2025 05/06/2022, 04/08/2021, 03/25/2020, Additional history exists Procedures Procedure Name Priority Date/Time Associated Diagnosis Comments ALL FOLLICLE STIMULATING HORMONE Routine 11/08/2024 12:06 PM EDT ALL LUTEINIZING HORMONE Routine 11/08/2024 12:06 PM EDT ALL DHEA SULFATE Routine 11/08/2024 12:0 6 PM EDT TBH PREG QUANT HCG Routine 11/08/2024 12 :06 PM EDT ALL THYROID STIM HORMONE Routine 11/08/2024 12:06 PM EDT ALL THYROXINE (T4) FREE Routine 11/08/2024 12:06 PM EDT MLR HEMOGLOBIN A1C Routine 11/08/2024 12 :06 PM EDT ALL CBC WITH AUTO DIFF Routine 11/08/2024 12:06 PM EDT POCT , URINE Routine 11/08/2024 11:46 AM EDT Dyspareunia in female Irregular menstrual cycle POCT URINALYSIS DIPSTICK Routine 11/08/2024 11:45 AM EDT Dyspareunia in female Irregular menstrual cycle from Last 3 Months Results * TBH PREG QUANT HCG (11/08/2024 12:06 PM EDT) HCG QUANTITATIVE <1 mIU/mL TBH Comment: 5-50 0.2-1 WEEK 50-500 1-2 WEEKS 100-5,000 2-3 WEEKS 500-10,000 3-4 WEEKS 1,000-50,000 4-5 WEEKS 10,000-100,000 5-6 WEEKS 15,000-200,000 6-8 WEEKS 10,000-100,000 2-3 MONTHS 11/08/2024 12:0 6 PM EDT 11/08/2024 12:08 PM EDT Narrative CLINISYNC - 11/08/2024 1:11 PM EDT [employer] DO CLINISYNC Final Result Performing Organization Address City/[facility]/ZIP Co de Phone Number [facility] * MLR HEMOGLOBIN A1C (11/08/2024 12:06 PM EDT) GLYCOHEMOGLOBIN A1C 4.8 4.5 - 6.2 % TB Comment: ADA RECOMMENDED LIMIT 4.0 - 6.0 ADA THERAPEUTIC TARGET < 7.0 ACTION SUGGESTED > 7.0 ESTIMATED AVERAGE GLUCOSE 91 mg/dL TBH 11/08/2024 12:0 6 PM EDT 11/08/2024 12:08 PM EDT Narrative CLINISYNC - 11/08/2024 12:29 PM EDT Elijah Zafar DO CLINISYNC Final Result [facility] * ALL THYROXINE (T4) FREE (11/08/2024 12:06 PM EDT) FREE T4 1.02 0.76 - 1.46 ng/dL TB 11/08/2024 12:0 6 PM EDT 11/08/2024 12:08 PM EDT Narrative CLINISYNC - 11/08/2024 1:11 PM EDT Elijah Zafar DO CLINISYNC Final Result Performing Organization Address City/[facility]/ZIP Co de Phone Number [facility] * ALL THYROID STIM HORMONE (11/08/2024 12:06 PM EDT) THYROID STIMULATING HORMONE 1.193 0.358 - 3.740 uIU/mL TBH 11/08/2024 12:0 6 PM EDT 11/08/2024 12:08 PM EDT Narrative CLINISYNC - 11/08/2024 1:11 PM EDT Elijah Zafar DO CLINISYNC Final Result Performing Organization Address [facility] Co de Phone Number [facility] * ALL LUTEINIZING HORMONE (11/08/2024 12:06 PM EDT) LUTEINIZING HORMONE(LH) 6.9 . mIU/mL TBH Comment: Adult Female Range Follicular phase 2.4 - 12.6 Ovulation phase 14.0 - 95.6 Luteal phase 1.0 - 11.4 Postmenopausal 7.7 - 58.5 11/08/2024 12:0 6 PM EDT 11/08/2024 12:08 PM EDT Narrative CLINISYNC - 11/09/2024 4:07 AM EDT Elijah Zafar DO CLINISYNC Final Result Performing Organization Address City/[facility] Co de Phone Number [facility] * ALL FOLLICLE STIMULATING HORMONE (11/08/2024 12:06 PM EDT) FSH 5.3 . mIU/mL TBH Comment: Adult Female Range Follicular phase 3.5 - 12.5 Ovulation phase 4.7 - 21.5 Luteal phase 1.7 - 7.7 Postmenopausal 25.8 - 134.8 Performed at: [address] [id number] Power Distributor: Aaron Best PhD, Phone: [phone] 11/08/2024 12:0 6 PM EDT 11/08/2024 12:08 PM EDT Narrative CLINISYNC - 11/09/2024 4:07 AM EDT Elijah Zafar DO CLINISYNC Final Result [facility] * ALL DHEA SULFATE (11/08/2024 12:06 PM EDT) DHEA-SULFATE 171.0 110.0 - 431.7 ug/dL TB 11/08/2024 12:0 6 PM EDT 11/08/2024 12:08 PM EDT Narrative CLINISYNC - 11/09/2024 4:07 AM EDT Elijah Zafar DO CLINISYNC Final Result Performing Organization Address City/[facility]/ZIP Co de Phone Number [facility] * (ABNORMAL) ALL CBC WITH AUTO DIFF (11/08/2024 12:06 PM EDT) TB WBC 4.3 4.0 - 11.0 10 3/uL TBH TBH RBC 4.33 4.20 - 5.40 10 6/uL TBH TBH HGB 13.2 12.0 - 16.0 g/dL TB TB HCT 37.6 36.0 - 48.0 % TBH TBH MCV 86.8 81.0 - 99.0 fL TBH TBH MCH 30.5 26.7 - 34.0 pg TBH TBH MCHC 35.1 29.9 - 35.2 g/dL TBH TBH RDW 12.6 11.0 - 15.0 % TBH TBH PLT 218 150 - 450 10 3/uL TBH TBH MPV 9.3(L) 9.5 - 13.5 fL TBH NEUTROPHILS PERCENT AUTO 39.8(L) 43.0 - 75.0 % TBH LYMPHOCYTES PERCENT AUTO 50.0 20.5 - 60.0 % TBH MONOCYTES PERCENT AUTO 7.0 1.7 - 12.0 % TBH TBH EO % 2.1 0.9 - 7.0 % TBH BASOPHILS PERCENT AUTO 0.9 0.2 - 2.0 % TBH IMMATURE GRANULOCYTES PCT AUTO 0.2 0.0 - 0.5 % TBH NEUTROPHILS ABSOLUTE AUTO 1.7 1.4 - 6.5 10 3/uL TBH LYMPHOCYTES ABSOLUTE AUTO 2.1 1.2 - 3.8 10 3/uL TBH MONOCYTES ABSOLUTE AUTO 0.3 0.3 - 0.8 10 3/uL TBH TBH EO # 0.1 0.0 - 0.7 10 3/uL TBH BASOPHILS ABSOLUTE AUTO 0.0 0.0 - 0.1 10 3/uL TBH IMMATURE GRANULOCYTES ABS AUTO 0.01 0.00 - 0.03 10 3/uL TBH 11/08/2024 12:0 6 PM EDT 11/08/2024 12:08 PM EDT Narrative CLINISYNC - 11/08/2024 12:18 PM EDT [facility] DO CLINISYNC Final Result [facility] * POCT , urine manually resulted (11/08/2024 11:46 AM EDT) Pathologist [facility] Preg Test, Ur Negative Negative Urine 11/08/2024 11:4 6 AM EDT [facility] DO POINT OF CARE TEST ENTER/EDIT OR [...] Urine 11/08/2024 11:4 5 AM EDT Elijah Stephen DO POINT OF CARE TEST ENTER/EDIT OR DERABLES Final Result from Last 3 Months Insurance [employer] Care Teams Fender Mechanic Relationship Specialty Start Date End Date Raquel Hinkle MD [address] [place] [id number] PCP - General 12/20/22
--- OUTSIDE RECORDS SUMMARY | 2024-11-13 13:57 | XMS_ITS | Encounter Summary ---
Author Organization [facility] Address [address] [place] [address] Care Team Providers Care Metal Fitters And Machinists Name Role Phone Raquel Hinkle MD Primary Care Provider [phone] Encounter Details Date Type Department Care Team (Late st Contact Info) Description 11/08/2024 Clinisync Result Encounter [facility] External Department Unsolicited Elijah Stephen, DO [address] [place] [id number] Social History Tobacco Use Types Packs/Day Years [...] [facility] [address] [place] [address] Elijah Stephen DO [address] [place] [address] 03/15/2025 8:30 AM EDT Office Visit [facility] [address] [place] [address] Livier He PA [address] [place] [address] documented as of this encounter Procedures Procedure Name Priority Date/Time Associated Diagnosis Comments TBH PREG QUANT HCG Routine 11/08/2024 12 :06 PM EDT MLR HEMOGLOBIN A1C Routine 11/08/2024 12 :06 PM EDT ALL THYROXINE (T4) FREE Routine 11/08/2024 12:06 PM EDT ALL THYROID STIM HORMONE Routine 11/08/2024 12:06 PM EDT ALL LUTEINIZING HORMONE Routine 11/08/2024 12:06 PM EDT ALL FOLLICLE STIMULATING HORMONE Routine 11/08/2024 12:06 PM EDT ALL DHEA SULFATE Routine 11/08/2024 12:0 6 PM EDT ALL CBC WITH AUTO DIFF Routine 11/08/2024 12:06 PM EDT documented in this encounter Results * ALL FOLLICLE STIMULATING HORMONE (11/08/2024 12:06 PM EDT) FSH 5.3 . mIU/mL TBH Comment: Adult Female Range Follicular phase 3.5 - 12.5 Ovulation phase 4.7 - 21.5 Luteal phase 1.7 - 7.7 Postmenopausal 25.8 - 134.8 Performed at: - [facility], [place], [place] [id number] Electrician Supervisor: Aaron Best PhD, Phone: [phone] 11/08/2024 12:0 6 PM EDT 11/08/2024 12:08 PM EDT Narrative CLINISYNC - 11/09/2024 4:07 AM EDT us Elijah Stephen [facility] Final Result Performing Organization Address [facility] Co de Phone Number [facility] * ALL LUTEINIZING HORMONE (11/08/2024 12:06 PM EDT) LUTEINIZING HORMONE(LH) 6.9 . mIU/mL TBH Comment: Adult Female Range Follicular phase 2.4 - 12.6 Ovulation phase 14.0 - 95.6 Luteal phase 1.0 - 11.4 Postmenopausal 7.7 - 58.5 11/08/2024 12:0 6 PM EDT 11/08/2024 12:08 PM EDT Narrative CLINISYOR - 11/09/2024 4:07 AM EDT [facility] Final Result Performing Organization Address [facility] Co de Phone Number [facility] * ALL DHEA SULFATE (11/08/2024 12:06 PM EDT) DHEA-SULFATE 171.0 110.0 - 431.7 ug/dL TBH 11/08/2024 12:0 6 PM EDT 11/08/2024 12:08 PM EDT Narrative CLINISYNC - 11/09/2024 4:07 AM EDT [facility] Final Result Performing Organization Address [facility] Co de Phone Number [facility] * TBH PREG QUANT HCG (11/08/2024 12:06 PM EDT) HCG QUANTITATIVE <1 mIU/mL TBH Comment: 5-50 0.2-1 WEEK 50-500 1-2 WEEKS 100-5,000 2-3 WEEKS 500-10,000 3-4 WEEKS 1,000-50,000 4-5 WEEKS 10,000-100,000 5-6 WEEKS 15,000-200,000 6-8 WEEKS 10,000-100,000 2-3 MONTHS 11/08/2024 12:0 6 PM EDT 11/08/2024 12:08 PM EDT Narrative CLINISYNC - 11/08/2024 1:11 PM EDT Elijah Guptao DO CLINISYNC [facility] * ALL THYROID STIM HORMONE (11/08/2024 12:06 PM EDT) THYROID STIMULATING HORMONE 1.193 0.358 - 3.740 uIU/mL TB 11/08/2024 12:0 6 PM EDT 11/08/2024 12:08 PM EDT Narrative CLINISYNC - 11/08/2024 1:11 PM EDT Elijah Stephen DO [facility] Final Result Performing Organization Address [facility] Co de Phone Number [facility] * ALL THYROXINE (T4) FREE (11/08/2024 12:06 PM EDT) FREE T4 1.02 0.76 - 1.46 ng/dL TB 11/08/2024 12:0 6 PM EDT 11/08/2024 12:08 PM EDT Narrative CLINISYNC - 11/08/2024 1:11 PM EDT Result [facility] Elijah Stephen DO [facility] Final Result Performing Organization Address City/[facility] Co de Phone Number [facility] * MLR HEMOGLOBIN A1C (11/08/2024 12:06 PM EDT) GLYCOHEMOGLOBIN A1C 4.8 4.5 - 6.2 % TB Comment: ADA RECOMMENDED LIMIT 4.0 - 6.0 ADA THERAPEUTIC TARGET < 7.0 ACTION SUGGESTED > 7.0 ESTIMATED AVERAGE GLUCOSE 91 mg/dL TB 11/08/2024 12:0 6 PM EDT 11/08/2024 12:08 PM EDT Narrative CLINISYNC - 11/08/2024 12:29 PM EDT Elijah Zafar DO CLINISYNC Final Result [facility] * (ABNORMAL) ALL CBC WITH AUTO DIFF (11/08/2024 12:06 PM EDT) [facility] TB WBC 4.3 4.0 - 11.0 10 3/uL TBH TBH RBC 4.33 4.20 - 5.40 10 6/uL TBH TBH HGB 13.2 12.0 - 16.0 g/dL TBH TBH HCT 37.6 36.0 - 48.0 % TBH [...] Narrative CLINISYNC - 11/08/2024 12:18 PM EDT us Elijah Guptao DO CLINISYNC Final Result [facility]NC [facility] documented in this encounter Visit Diagnoses Not on filedocumented in this encounter Care Teams Metal Fitters And Machinists Relationship Specialty Start Date End Date Raquel Hinkle MD [address] [place] [id number] PCP - General 12/20/22 documented as of this encounter
--- OUTSIDE RECORDS SUMMARY | 2024-11-13 13:57 | XMS_ITS | Encounter Summary ---
Author Organization [facility] Address [address] [place] [address] Care Team Providers Care Straight Line Edger Name Role Phone Raquel Hinkle MD Primary Care Provider [phone] Encounter Details Date Type Department Care Team (Late Contact Info) Description 11/08/2024 Bamboo flowsheet [facility] OB [address] [place] [address] Elijah Stephen [facility] [place] [place], [facility]11 Social History Tobacco Use Types Packs/Day Years [...] 02/18/2025 9:00 AM EDT Office Visit [facility] OB [address] [place] [address] Elijah Stephen [facility] [address] [place], [facility] 03/15/2025 8:30 AM EDT Office Visit [facility] [address] [place] [address] Livier He PA [address] [place] [address] documented as of this encounter Visit Diagnoses Not on filedocumented in this encounter Care Teams Straight Line Edger Relationship Specialty Start Date End Date Raquel Hinkle MD [address] [place] [address] PCP - General 12/20/22 documented as of this encounter
--- OUTSIDE RECORDS SUMMARY | 2024-11-13 13:57 | XMS_ITS | Clinical Summary ---
Author Organization [facility] Address [address] [place] [address] Care Team Providers Care Floor Runner Name Role Phone Clint Tejada MD Primary Care Provider [phone] Allergies No known active allergies Medications albuterol [...] Plan of Treatment Not on file Insurance [facility] [id number] [employer] Care Teams Floor Runner Relationship Specialty Start Date End Date Clint Tejada MD [address] [place] [address] PCP - General Pediatrics 11/24/16
--- NOTE | 2024-11-13 13:59 | US_ITS ---
The [address] [address] Patient Name: ROXANNE GONZALES MRN: [id number] date: 2000 Sex: F Assigned Patient Location: US Current Patient Location: Accession/Order Number: [id number] Exam Date: 11/13/2024 14:46 Report Date: 11/13/2024 14:47 At the request of: SIN DALY DO Procedure: US pelvis w/ transvaginal Pelvic ultrasound. Reason for exam: Pelvic pain. Comparison: none Technique: Transabdominal imaging of the uterus and ovaries was performed. Transvaginal imaging of the uterus and ovaries was also obtained. Additional spectral Doppler analysis of the ovaries was also obtained. Findings: Uterus measures 8.6 x 4.4 x 3.3 cm. No measurable fibroid is seen. Endometrium measures 3.2 mm without focal abnormality. Small amount of free fluid is seen within the cul-de-sac. Right ovary measures 2.8 x 2.8 x 2.5 cm. Left ovary measures 3.2 x 2.4 x 1.1 cm. No adnexal mass or cyst. Normal arterial and venous Doppler waveforms US/US pelvis w/ transvaginal Impression: Unremarkable pelvic ultrasound. Impression dictated by: Singh Jimenez Jr., D.O. 11/13/2024 2:47 PM Dictation Location: [place] [address] Electronically authenticated by: [id number] Y Date: 11/13/2024 14:47
== END 2024-11-13 13:55 | disposition home or self-care (01) ==
LOC: US 13:54
PROVIDERS: PCP Family Medicine; Visit Provider Obstetrics & Gynecology
DX: N94.10 Unspecified dyspareunia (principal); N92.6 Irregular menstruation, unspecified
CPT/HCPCS: 76830; 76856